=== PATIENT | male | born 1965 | race Caucasian/White ===

== ENCOUNTER 2017-10-16 15:48 | Inpatient (IN) | payer MEDICARE, SELFPAY ==
[2017-10-16] VITALS (11 sets, daily range): BP systolic 147–210; BP diastolic 94–110; PULSE 99–130; RESP 12–23; TEMP 36.6–37.1; O2SAT 94–99; BMI 20.9; BMI 20.4
--- NOTE | 2017-10-16 15:57 | EKG12_ITS ---
Test Reason : SOB Blood Pressure : / mmHG Vent. Rate : 125 BPM Atrial Rate : 125 BPM P-R Int : 100 ms QRS Dur : 070 ms QT Int : 292 ms P-R-T Axes : 074 040 055 degrees QTc Int : 421 ms Sinus tachycardia with short NH Low voltage QRS (limb leads) Confirmed by PAMELA PHAM, GALE ([id number]), book or script editor LAKSHMI GARCIA ([id number] on 10/18/2017 11:47:50 AM Referred By: CHYNA Confirmed By:GALE SANTIAGO MD
--- NOTE | 2017-10-16 15:59 | RAD_ITS ---
STUDY: X-RAY CHEST REASON FOR EXAM: Male, 52 years old. SOB/DYSPNEA; COPD/EMPHYSEMA TECHNIQUE: Single AP portable view of the chest. COMPARISON: 08.18.16. FINDINGS: There is hyperinflation of the lungs consistent with chronic obstructive lung disease (COPD). There is no demonstrated pleural abnormality. Normal size heart. Normal mediastinum and kathleen. Normal visualized pulmonary arteries. Normal visualized aortic arch and descending thoracic aorta. Normal visualized thoracic spine. Healed left rib fracture. There is no demonstrated abnormality of the visualized soft tissue structures of the upper abdomen. RAD/Chest 1 View (Portable) IMPRESSION: Normal x-ray examination of the chest. Healed left rib fracture. Electronically Signed: Otoniel Tapia MD at 16:17 EDT , Service support ,
[2017-10-16] MEDS: Ipratropium/Albuterol Sulfate 3 ML AMPUL.NEB INHALATION ×3 (16:04→23:13)
[2017-10-16] MEDS: Albuterol 2.5 MG/3 ML VIAL.NEB. INHALATION ×3 (16:06→16:10)
[2017-10-16] MEDS: MethylPREDNISolone 125 MG/2 ML Vial IV (16:10)
[2017-10-16] MEDS: 0.9% Normal Saline 1,000 ML 999 ML IV (16:11)
[2017-10-16] MEDS: Ondansetron 4 MG/2 ML Vial IV (16:13)
[2017-10-16] MEDS: Morphine 4 MG/ML Syringe IV (16:13)
[2017-10-16 16:17] LABS: Absolute Lymphocyte Count 0.91 X10^3/ul (0.83-4.51); Absolute Neutrophil Count 8.9 X10^3/uL (2.0-7.7); Basophil# 0.02 X10^3/uL; Basophil% 0.2 % (0-1); Eosinophil# 0.04 X10^3/uL; Eosinophils% 0.4 % (0-5); Hematocrit 38.8 % (40-54); Hemoglobin 12.9 g/dl (13.0-16.5); Lymphocyte # 0.91 X10^3/ul (4.0); Lymphocyte % 8.6 % (19-41); Mean Corp Hgb Conc 33.2 g/gl (32-36); Mean Corpuscular Hgb 30.9 pg (27.0-32.0); Mean Platelet Vol. 8.2 fl (6.2-12.0); Monocyte# 0.63 X10^3/uL; Neutrophil # 8.93 X10^3/uL (2.7-7.7); Neutrophil % 84.6 % (47-70); Platelet Count 293 K/mm3 (150-450); RBC Distribution Width CV 13.7 % (11.6-14.6); RBC Distribution Width SD 46.5 fl (35.1-43.9); Red Blood Count 4.17 M/mm3 (4.6-6.2); White Blood Count 10.6 K/mm3 (4.4-11.0)
[2017-10-16 16:20] LABS: POSITIVE COUNT NO; POSITIVE DIFFERENTIAL NO; POSITIVE MORPHOLOGY NO
[2017-10-16 16:31] LABS: Lactic Acid 1.9 mmol/L (0.4-2.0)
[2017-10-16 16:48] LABS: Anion Gap 6 (5-15); BUN 3 mg/dL (7-18); BUN/Creat Ratio 5.4 RATIO (10-20); Chloride 83 mmol/L (98-107); Creatinine, Serum 0.56 mg/dL (0.70-1.30); EST Glomerular Filtration Rate 162 mL/min (>60); Est Glom Filt Rate - Afr Amer 197 mL/min (>60); Estimated Creatinine Clearance 127.09 ml/min; Glucose 113 mg/dL (74-106); Potassium 4.6 mmol/L (3.5-5.1); Sodium Level 121 mmol/L (136-145)
--- NOTE | 2017-10-16 16:57 | ED.VISSUMM ---
- ER Visit Summary Date of Service: 10/16/17 Chief Complaint: Shortness of breath History of Present Illness: The patient is a [address] Higuera and Dr. Peralta. He has a history of COPD and is on 2 L of home O2. Reports she has shortness of breath began yesterday and is gradually worsened. It is now severe. He reports she has had a cough productive white sputum for the past 2 days. Said subjective fever. He reports that he has a continuous left-sided chest pressure that began 2 days ago. Is 5 out of 10 currently and 8 out of 10 at worst. Patient also reports that he has mild abdominal pain and was nauseated and vomited last night. No blood in his emesis. He does drink 3-4 beers a day. He has had 3 beers today. Complains of generalized weakness as well. Physical Examination: Vitals: 98.8, 210/110, 118, 23, 99% on a nonrebreather. General: Well-developed, but cachectic. Head: Normocephalic atraumatic. Neck: Supple, no lymphadenopathy. No JVD. Nontender. Cardiovascular: Tachycardic regular rhythm. No murmurs. Respiratory: Moderate respiratory distress. Mild wheezing bilaterally with greatly decreased air movement. Abdominal: Soft, nontender, nondistended, normal bowel sounds. No guarding, rebound, or peritoneal signs. Back: Nontender. Extremities: Nontender, no edema. Skin: Normal color, no rash. Neurologic: Alert and oriented ?3. Cranial nerves II through XII are intact. Normal strength and sensation. Psych: Normal affect. Test Results: EKG is sinus tachycardia 125 with a short [place] interval of [address] changes. Troponin is negative. Lactic acid is 1.9. Chem-7 is more for sodium 121, chloride of 83, BUN 3, creatinine 0.56, glucose 113. CBC is more for an H&H of 12.9 38.8, 7 neutrophils 85, and leukocytes of 9. Chest x-ray shows severe emphysematous changes, but no pneumothorax or pneumonia. Emergency Department Course and Treatment: Patient was treated with 4 albuterol and Atrovent aerosol. He was placed on BiPAP. He was given Solu-Medrol, morphine, and Zofran IV. He is resting more comfortably. However, he still has very poor air movement. Treatment Plan: Patient will be admitted to the hospital for further evaluation and treatment. Disposition: Admitted in improved condition. Impression: 1. Acute on chronic respiratory failure on BiPAP. 2. COPD exacerbation. 3. Hyponatremia. 4. Critical care time 30 minutes. This note was generated with [employer] dictation software. It may contain incorrect words, spelling, and punctuation that were not noted in review of the chart prior to signing ED Disposition - Plan for ED Patient: Chief Complaint: Shortness of Breath Referrals: Ketan Peralta MD [Primary Care Provider] -
[2017-10-16 17:01] LABS: Allen Test POS; Base Excess 5 mmol/L (-2 to +2); Bicarbonate 30.6 mmol/L (22-26); Blood Gas Specimen Type ART; EPAP 7; FI02 50; IPAP 14; PO2 180 mmHG (75-100); RR 12; SITE R Radial; SO2 99 % (95-99); Time Given 1658; Total Carbon Dioxide 32 mmol/L; pCO2 57.6 mmHg (35-45); pH 7.33 (7.35-7.45)
--- NOTE | 2017-10-16 17:59 | NURSING ---
107 COPD [facility]
--- NOTE | 2017-10-16 18:07 | NURSING ---
DR ALBERTO WITH PATIENT
--- NOTE | 2017-10-16 18:11 | PCM.HP.STD ---
Problem List (1) Shortness of breath Status: Acute History of Present Illness Date of Admission: 10/16/17 Chief Complaint: Shortness of breath The patient is a 52 year old M with a history of COPD on 2 L of home oxygen, hypertension, hyperlipidemia and alcohol abuse. He was admitted by the ED on 10/16/2017 with a complaint of shortness of breath for 2 days prior to admission. Patient states he had not been using his inhalers for the past few days. Shortness of breath started and worsened over the 2 days prior to admission with associated cough productive of clear sputum. He had a subjective fever but denied any chills and had pleuritic chest pain as well. Also had assisted nausea and vomited once last night. He drinks about 3-4 beers daily and his last drink was today when he drank 3 beers. In the ED vitals showed temperature of 98.8, blood pressure of 210/110, respiratory rate of 118, respiratory rate of 23 he was breathing 99% on a nonrebreather mask. EKG done shows sinus tachycardia with a heart rate of 125 and a shortened ND, troponin was negative and lactic acid was 1.9. BMP was significant for sodium of 121 and CBC showed hemoglobin of 8.7 with white cell count of around 9. Chest x-ray done showed severe emphysematous changes but no pneumothorax or pneumonia. Was given albuterol and Atrovent in the ED and put on BiPAP and also given Solu-Medrol. Patient became more comfortable on BiPAP. He has been admitted to be managed for COPD exacerbation. [] Past Medical History Past Medical History (Chronic Problems): Chronic Problems (Last Reviewed 04/11/17 @ 11:06 by MOE Dixon) Stage 4 very severe COPD by GOLD classification (Chronic) Alcohol abuse (Chronic) Chronic respiratory failure (Chronic) Hyperlipidemia (Chronic) Hypertension (Chronic) COPD (chronic obstructive pulmonary disease) (Chronic) Medical History: Medical History (Last Reviewed 04/11/17 @ 11:06 by MOE Dixon) Acute and chronic respiratory failure with hypercapnia (Acute) J96.22 Alcohol abuse (Chronic) F10.10 Chronic respiratory failure (Chronic) J96.10 Hyperlipidemia (Chronic) E78.5 COPD exacerbation (Acute) J44.1 Hypertension (Chronic) I10 COPD (chronic obstructive pulmonary disease) (Chronic) J44.9 Allergies No Known Allergies Allergy (Verified 10/16/17 15:49) Home Medications: Ambulatory Orders Medication Instructions Recorded Pravastatin Sodium [Pravachol] 20 mg PO QHS 03/23/16 Albuterol Inhaler [Ventolin Hfa] 2 puff INHALATION Q4H PRN PRN #1 03/25/16 inhaler Ipratropium/Albuterol Respimat 1 puff INHALATION 4X/DAY #1 inhaler 03/25/16 [Combivent Respimat Inhal [place]] Lisinopril [Zestril] 20 mg PO DAILY #30 tab 08/23/16 albuterol sulfate 2.5 mg/3 mL 2.5 mg INHALATION Q4H PRN ml 04/05/17 (0.083 %) solution for nebulization budesonide 0.5 mg/2 mL suspension 0.5 mg INHALATION Q12H 04/05/17 for nebulization prednisone 10 mg tablet 10 mg PO QDAY #30 tab 04/11/17 prednisone 10 mg tablet 10 mg PO QDAY #30 tab 05/23/17 prednisone 10 mg tablet 10 mg PO QDAY #30 tab 06/21/17 azithromycin 250 mg tablet 250 mg PO QDAY #6 tab 10/15/17 prednisone 10 mg tablet 10 mg PO QDAY #30 tab 10/15/17 Surgical History: Surgical History (Last Reviewed 04/11/17 @ 11:07 by MOE Dixon) H/O chest tube placement (Resolved) Z98.890 Surgical History: no surgical history Psychiatric History: No pertinent psych hx Lives: Spouse/ Significant Other Smoking Status: Former smoker - *Family History Maternal Family History: Family History (Last Reviewed 04/11/17 @ 11:07 by MOE Dixon) Mother COPD (chronic obstructive pulmonary disease) Aunt COPD (chronic obstructive pulmonary disease) Father Cancer COPD (chronic obstructive pulmonary disease) Pneumonia History Items: Unknown Paternal Family History: Family History (Last Reviewed 04/11/17 @ 11:07 by MOE Dixon) Mother COPD (chronic obstructive pulmonary disease) Aunt COPD (chronic obstructive pulmonary disease) Father Cancer COPD (chronic obstructive pulmonary disease) Pneumonia History Items: No pertinent history Review of Systems Constitutional: Reports: Fever, Malaise. Denies: Chills, Weight Change HEENT: Denies: Head Aches, Sinus Congestion, Sinus Drainage Cardiovascular: Reports: Palpitations, - - Pleuritic chest pain. Denies: Chest Pressure, Chest Tightness, Heaviness, Light Headedness, Orthopnea, Paroxysmal Noc. Dyspnea Respiratory: Reports: Cough, Pleuritic Pain, Shortness of Breath, Shortness of breath at rest, Sputum production - Clear sputum, Wheezing Gastrointestinal: Reports: Nausea, Vomiting. Denies: Abdominal Pain Genitourinary: Denies: Dysuria Musculoskeletal: Denies: Joint Pain, Joint Tenderness Skin: Denies: Rash, Wounds Neurological: Denies: Numbness, Tingling, Focal weakness Psychiatric: Denies: Anxiety, Depression, Homicidal Ideations, Suicidal Ideations Hematologic/ Lymphatic: Denies: Easy Bruising, Easy Bleeding VTE Information - Inpt Only VTE Present on Admission: No VTE Mechan Device Prophylaxis: None VTE Pharm Prophylaxis ordered?: Yes Patient Problems: Active and Suspected Problems (Last Reviewed 04/11/17 @ 11:06 by Elisha Boss INK PRINTER-C) Shortness of breath (Acute) - Physical Exam General: Alert, Oriented x3, Cooperative, - - Patient on BiPAP. Moderate respiratory distress. HEENT: Atraumatic, PERRLA, EOMI, Normocephalic Oral: Moist Mucosa Neck: Supple, No JVD, Negative Carotid Bruits Lungs: Short of Breath, Tachypneic, Using Accessory Muscles, - - Increased anterior posterior diameter. Using accessory muscles of respiration. Has wheezing in all lung roland with breath sounds mildly diminished in all lung roland. Cardiovascular: Regular Rhythm, Normal S1, Normal S2, Tachycardic Abdomen: Bowel Sounds Present, Soft, Non Tender Extremities: No clubbing, No cyanosis, No edema, Capillary Refill Less than 3 Seconds Skin: No rashes, No breakdown Musculoskeletal: No Tenderness to Palpation of Joints or Extremities Lymphatic: No Cervical, Supraclavicular, or Inguinal Adenopathy Neurological: Cranial nerves II-XII grossly intact, Motor Exam 5/5 strength throughout Psych/Mental Status: Normal Affect, Appropriate, Alert and oriented to time, place, person, mood and affect Vital Signs Temp Pulse Resp BP Pulse Ox 98.8 F 109 H 18 147/108 H 96 10/16/17 15:52 10/16/17 17:35 10/16/17 17:35 10/16/17 17:35 10/16/17 17:35 Impressions Chest X-Ray 10/16/17 15:59 IMPRESSION: Normal x-ray examination of the chest. Healed left rib fracture. Electronically Signed: Otoniel Tapia MD at 16:17 EDT , Service support , 10/16/17 15:59 Chest 1 View (Portable) [RAD] Stat Laboratory Results 10/16/17 10/16/17 10/16/17 Range/Units 16:00 16:00 16:00 WBC 10.6 (4.4-11.0) K/mm3 RBC 4.17 L (4.6-6.2) M/mm3 Hgb 12.9 L (13.0-16.5) g/dl Hct 38.8 L (40-54) % MCV 93.0 (80-94) fL MCH 30.9 (27.0-32.0) pg MCHC 33.2 (32-36) g/gl RDW 13.7 (11.6-14.6) % RDW Differential 46.5 H (35.1-43.9) fl Plt Count 293 (150-450) K/mm3 MPV 8.2 (6.2-12.0) fl Immature Gran % (Auto) 0.200 (0.0-0.9) % Neut % (Auto) 84.6 H (47-70) % Lymph % (Auto) 8.6 L (19-41) % Jefferson % (Auto) 6.0 (0-10) % Eos % (Auto) 0.4 (0-5) % Baso % (Auto) 0.2 (0-1) % Absolute Neuts (auto) 8.9 H (2.0-7.7) X10^3/uL Absolute Lymphs (auto) 0.91 (0.83-4.51) X10^3/ul Total Counted Not Reportable Specimen Type Sample Site pH (7.35-7.45) Bicarbonate Actual (22-26) mmol/L POC Total CO2 mmol/L Base Excess (-2 to +2) mmol/L O2 Saturation (95-99) % O2 % ABG pCO2 (35-45) mmHg ABG pO2 (75-100) mmHG Romulo Test Respiration Rate O2 Delivery Device EPAP IPAP Blood Gas Notified Whom Blood Gas Notified Time Sodium 121 L (136-145) mmol/L Potassium 4.6 (3.5-5.1) mmol/L Chloride 83 L (98-107) mmol/L Carbon Dioxide 32.0 (21.0-32.0) mmol/L Anion Gap 6 (5-15) BUN 3 L (7-18) mg/dL Creatinine 0.56 L (0.70-1.30) mg/dL Estim Creat Clear Calc 127.09 ml/min Est GFR (MDRD) Af Amer 197 (>60) mL/min Est GFR (MDRD) Non-Af 162 (>60) mL/min BUN/Creatinine Ratio 5.4 L (10-20) RATIO Glucose 113 H (74-106) mg/dL Lactic Acid 1.9 (0.4-2.0) mmol/L Calcium 9.0 (8.5-10.1) mg/dL Troponin I < 0.015 (<0.045) ng/mL Ethyl Alcohol mg/dL 10/16/17 10/16/17 Range/Units 16:44 16:56 WBC (4.4-11.0) K/mm3 RBC (4.6-6.2) M/mm3 Hgb (13.0-16.5) g/dl Hct (40-54) % MCV (80-94) fL MCH (27.0-32.0) pg MCHC (32-36) g/gl RDW (11.6-14.6) % RDW Differential (35.1-43.9) fl Plt Count (150-450) K/mm3 MPV (6.2-12.0) fl Immature Gran % (Auto) (0.0-0.9) % Neut % (Auto) (47-70) % Lymph % (Auto) (19-41) % Jefferson % (Auto) (0-10) % Eos % (Auto) (0-5) % Baso % (Auto) (0-1) % Absolute Neuts (auto) (2.0-7.7) X10^3/uL Absolute Lymphs (auto) (0.83-4.51) X10^3/ul Total Counted Specimen Type ART Sample Site R Radial pH 7.33 L (7.35-7.45) Bicarbonate Actual 30.6 H (22-26) mmol/L POC Total CO2 32 mmol/L Base Excess 5 H (-2 to +2) mmol/L O2 Saturation 99 (95-99) % O2 % 50 ABG pCO2 57.6 H (35-45) mmHg ABG pO2 180 H (75-100) mmHG Romulo Test POS Respiration Rate 12 O2 Delivery Device Bi / C PAP EPAP 7 IPAP 14 Blood Gas Notified Whom ED Blood Gas Notified Time 1658 Sodium (136-145) mmol/L Potassium (3.5-5.1) mmol/L Chloride (98-107) mmol/L Carbon Dioxide (21.0-32.0) mmol/L Anion Gap (5-15) BUN (7-18) mg/dL Creatinine (0.70-1.30) mg/dL Estim Creat Clear Calc ml/min Est GFR (MDRD) Af Amer (>60) mL/min Est GFR (MDRD) Non-Af (>60) mL/min BUN/Creatinine Ratio (10-20) RATIO Glucose (74-106) mg/dL Lactic Acid (0.4-2.0) mmol/L Calcium (8.5-10.1) mg/dL Troponin I (<0.045) ng/mL Ethyl Alcohol 5.0 mg/dL Assessment/Plan All Active Problems (Last Reviewed 04/11/17 @ 11:06 by Elisha Boss, INK PRINTER-C) Shortness of breath (Acute) H/O chest tube placement (Resolved) Acute and chronic respiratory failure with hypercapnia (Acute) COPD exacerbation (Acute) 1. Acute on chronic hypoxic and hypercapnic respiratory failure due to COPD exacerbation' patient came in acutely SOB. was on nonrebreather mask, but now o n BIPAP and tolerating it well ABG showed Ph of 7.33, pCO2 of 57.6, pO2 of 180 will admit to PCU with telemetry continue BIPAP IV solumedrol 40mg q8. breathing treatments with duoneb inhalers 2. COPD exacerbation due to noncompliance with inhalers has increased A-P diameter imaging showed hyperinflation of lungs consistent with COPD. IV solumedrol as mentioned above BIPAP as mentioned above breathing treatments with duonebs 3. Hypertension urgency The patient was in the 200s systolic on admission but this is likely due to COPD exacerbation. 147/108 at time of review. On lisinopril. Will continue. 4. Hyperlipidemia: on pravastatin. Code Status: Full code. Patient is okay with intubation if needed. This note was generated with [employer] dictation software. It may contain incorrect words, spelling, and punctuation that were not noted in checking the note before signing. Code Visit Inpatient E&M: 94365 Init Hosp L3
--- NOTE | 2017-10-16 18:15 | HP.PCM_ITS ---
Problem List (1) Shortness of breath Status: Acute History of Present Illness Date of Admission: 10/16/17 Chief Complaint: Shortness of breath The patient is a 52 year old M with a history of COPD on 2 L of home oxygen, hypertension, hyperlipidemia and alcohol abuse. He was admitted by the ED on with a complaint of shortness of breath for 2 days prior to admission. Patient states he had not been using his inhalers for the past few days. Shortness of breath started and worsened over the 2 days prior to admission with associated cough productive of clear sputum. He had a subjective fever but denied any chills and had pleuritic chest pain as well. Also had assisted nausea and vomited once last night. He drinks about 3-4 beers daily and his last drink was today when he drank 3 beers. In the ED vitals showed temperature of 98.8, blood pressure of 210/110, respiratory rate of 118, respiratory rate of 23 he was breathing 99% on a nonrebreather mask. EKG done shows sinus tachycardia with a heart rate of 125 and a shortened VT, troponin was negative and lactic acid was 1.9. BMP was significant for sodium of 121 and CBC showed hemoglobin of 8.7 with white cell count of around 9. Chest x- ray done showed severe emphysematous changes but no pneumothorax or pneumonia. Was given albuterol and Atrovent in the ED and put on BiPAP and also given Solu- Medrol. Patient became more comfortable on BiPAP. He has been admitted to be managed for COPD exacerbation. [] Past Medical History Past Medical History (Chronic Problems): Chronic Problems (Last Reviewed 04/11/17 @ 11:06 by MOE Dixon) Stage 4 very severe COPD by GOLD classification (Chronic) Alcohol abuse (Chronic) Chronic respiratory failure (Chronic) Hyperlipidemia (Chronic) Hypertension (Chronic) COPD (chronic obstructive pulmonary disease) (Chronic) Medical History: Medical History (Last Reviewed 04/11/17 @ 11:06 by MOE Dixon) Acute and chronic respiratory failure with hypercapnia (Acute) J96.22 Alcohol abuse (Chronic) F10.10 Chronic respiratory failure (Chronic) J96.10 Hyperlipidemia (Chronic) E78.5 COPD exacerbation (Acute) J44.1 Hypertension (Chronic) I10 COPD (chronic obstructive pulmonary disease) (Chronic) J44.9 Allergies No Known Allergies Allergy (Verified 10/16/17 15:49) Home Medications: Ambulatory Orders Medication Instructions Recorded Pravastatin Sodium [Pravachol] 20 mg PO QHS 03/23/16 Albuterol Inhaler [Ventolin Hfa] 2 puff INHALATION Q4H PRN PRN #1 03/25/16 inhaler Ipratropium/Albuterol Respimat 1 puff INHALATION 4X/DAY #1 inhaler 03/25/16 [Combivent Respimat Inhal [place]] Lisinopril [Zestril] 20 mg PO DAILY #30 tab 08/23/16 albuterol sulfate 2.5 mg/3 mL 2.5 mg INHALATION Q4H PRN ml 04/05/17 (0.083 %) solution for nebulization budesonide 0.5 mg/2 mL suspension 0.5 mg INHALATION Q12H 04/05/17 for nebulization prednisone 10 mg tablet 10 mg PO QDAY #30 tab 04/11/17 prednisone 10 mg tablet 10 mg PO QDAY #30 tab 05/23/17 prednisone 10 mg tablet 10 mg PO QDAY #30 tab 06/21/17 azithromycin 250 mg tablet 250 mg PO QDAY #6 tab 10/15/17 prednisone 10 mg tablet 10 mg PO QDAY #30 tab 10/15/17 Surgical History: Surgical History (Last Reviewed 04/11/17 @ 11:07 by MOE Dixon) H/O chest tube placement (Resolved) Z98.890 Surgical History: no surgical history Psychiatric History: No pertinent psych hx Lives: Spouse/ Significant Other Smoking Status: Former smoker - *Family History Maternal Family History: Family History (Last Reviewed 04/11/17 @ 11:07 by MOE Dixon) Mother COPD (chronic obstructive pulmonary disease) Aunt COPD (chronic obstructive pulmonary disease) Father Cancer COPD (chronic obstructive pulmonary disease) Pneumonia History Items: Unknown Paternal Family History: Family History (Last Reviewed 04/11/17 @ 11:07 by MOE Dixon) Mother COPD (chronic obstructive pulmonary disease) Aunt COPD (chronic obstructive pulmonary disease) Father Cancer COPD (chronic obstructive pulmonary disease) Pneumonia History Items: No pertinent history Review of Systems Constitutional: Reports: Fever, Malaise. Denies: Chills, Weight Change HEENT: Denies: Head Aches, Sinus Congestion, Sinus Drainage Cardiovascular: Reports: Palpitations, - - Pleuritic chest pain. Denies: Chest Pressure, Chest Tightness, Heaviness, Light Headedness, Orthopnea, Paroxysmal Noc. Dyspnea Respiratory: Reports: Cough, Pleuritic Pain, Shortness of Breath, Shortness of breath at rest, Sputum production - Clear sputum, Wheezing Gastrointestinal: Reports: Nausea, Vomiting. Denies: Abdominal Pain Genitourinary: Denies: Dysuria Musculoskeletal: Denies: Joint Pain, Joint Tenderness Skin: Denies: Rash, Wounds Neurological: Denies: Numbness, Tingling, Focal weakness Psychiatric: Denies: Anxiety, Depression, Homicidal Ideations, Suicidal Ideations Hematologic/ Lymphatic: Denies: Easy Bruising, Easy Bleeding VTE Information - Inpt Only VTE Present on Admission: No VTE Mechan Device Prophylaxis: None VTE Pharm Prophylaxis ordered?: Yes Patient Problems: Active and Suspected Problems (Last Reviewed 04/11/17 @ 11:06 by Elisha Boss CHILDREN'S LIBRARIAN-C) Shortness of breath (Acute) - Physical Exam General: Alert, Oriented x3, Cooperative, - - Patient on BiPAP. Moderate respiratory distress. HEENT: Atraumatic, PERRLA, EOMI, Normocephalic Oral: Moist Mucosa Neck: Supple, No JVD, Negative Carotid Bruits Lungs: Short of Breath, Tachypneic, Using Accessory Muscles, - - Increased anterior posterior diameter. Using accessory muscles of respiration. Has wheezing in all lung roland with breath sounds mildly diminished in all lung roland. Cardiovascular: Regular Rhythm, Normal S1, Normal S2, Tachycardic Abdomen: Bowel Sounds Present, Soft, Non Tender Extremities: No clubbing, No cyanosis, No edema, Capillary Refill Less than 3 Seconds Skin: No rashes, No breakdown Musculoskeletal: No Tenderness to Palpation of Joints or Extremities Lymphatic: No Cervical, Supraclavicular, or Inguinal Adenopathy Neurological: Cranial nerves II-XII grossly intact, Motor Exam 5/5 strength throughout Psych/Mental Status: Normal Affect, Appropriate, Alert and oriented to time, place, person, mood and affect Vital Signs Temp Pulse Resp BP Pulse Ox 98.8 F 109 H 18 147/108 H 96 10/16/17 15:52 10/16/17 17:35 10/16/17 17:35 10/16/17 17:35 10/16/17 17:35 Impressions Chest X-Ray 10/16/17 15:59 IMPRESSION: Normal x-ray examination of the chest. Healed left rib fracture. Electronically Signed: Otoniel Tapia MD at 16:17 EDT , Service support , 10/16/17 15:59 Chest 1 View (Portable) [RAD] Stat Laboratory Results 10/16/17 10/16/17 10/16/17 Range/Units 16:00 16:00 16:00 WBC 10.6 (4.4-11.0) K/mm3 RBC 4.17 L (4.6-6.2) M/mm3 Hgb 12.9 L (13.0-16.5) g/dl Hct 38.8 L (40-54) % MCV 93.0 (80-94) fL MCH 30.9 (27.0-32.0) pg MCHC 33.2 (32-36) g/gl RDW 13.7 (11.6-14.6) % RDW Differential 46.5 H (35.1-43.9) fl Plt Count 293 (150-450) K/mm3 MPV 8.2 (6.2-12.0) fl Immature Gran % (Auto) 0.200 (0.0-0.9) % Neut % (Auto) 84.6 H (47-70) % Lymph % (Auto) 8.6 L (19-41) % [place] % (Auto) 6.0 (0-10) % Eos % (Auto) 0.4 (0-5) % Baso % (Auto) 0.2 (0-1) % Absolute Neuts (auto) 8.9 H (2.0-7.7) X10^3/uL Absolute Lymphs (auto) 0.91 (0.83-4.51) X10^3/ul Total Counted Not Reportable Specimen Type Sample Site pH (7.35-7.45) Bicarbonate Actual (22-26) mmol/L POC Total CO2 mmol/L Base Excess (-2 to +2) mmol/L O2 Saturation (95-99) % O2 % ABG pCO2 (35-45) mmHg ABG pO2 (75-100) mmHG Romulo Test Respiration Rate O2 Delivery Device EPAP IPAP Blood Gas Notified Whom Blood Gas Notified Time Sodium 121 L (136-145) mmol/L Potassium 4.6 (3.5-5.1) mmol/L Chloride 83 L (98-107) mmol/L Carbon Dioxide 32.0 (21.0-32.0) mmol/L Anion Gap 6 (5-15) BUN 3 L (7-18) mg/dL Creatinine 0.56 L (0.70-1.30) mg/dL Estim Creat Clear Calc 127.09 ml/min Est GFR (MDRD) Af Amer 197 (>60) mL/min Est GFR (MDRD) Non-Af 162 (>60) mL/min BUN/Creatinine Ratio 5.4 L (10-20) RATIO Glucose 113 H (74-106) mg/dL Lactic Acid 1.9 (0.4-2.0) mmol/L Calcium 9.0 (8.5-10.1) mg/dL Troponin I < 0.015 (<0.045) ng/mL Ethyl Alcohol mg/dL 10/16/17 10/16/17 Range/Units 16:44 16:56 WBC (4.4-11.0) K/mm3 RBC (4.6-6.2) M/mm3 Hgb (13.0-16.5) g/dl Hct (40-54) % MCV (80-94) fL MCH (27.0-32.0) pg MCHC (32-36) g/gl RDW (11.6-14.6) % RDW Differential (35.1-43.9) fl Plt Count (150-450) K/mm3 MPV (6.2-12.0) fl Immature Gran % (Auto) (0.0-0.9) % Neut % (Auto) (47-70) % Lymph % (Auto) (19-41) % [place] % (Auto) (0-10) % Eos % (Auto) (0-5) % Baso % (Auto) (0-1) % Absolute Neuts (auto) (2.0-7.7) X10^3/uL Absolute Lymphs (auto) (0.83-4.51) X10^3/ul Total Counted Specimen Type ART Sample Site R Radial pH 7.33 L (7.35-7.45) Bicarbonate Actual 30.6 H (22-26) mmol/L POC Total CO2 32 mmol/L Base Excess 5 H (-2 to +2) mmol/L O2 Saturation 99 (95-99) % O2 % 50 ABG pCO2 57.6 H (35-45) mmHg ABG pO2 180 H (75-100) mmHG Romulo Test POS Respiration Rate 12 O2 Delivery Device Bi / C PAP EPAP 7 IPAP 14 Blood Gas Notified Whom ED Blood Gas Notified Time 1658 Sodium (136-145) mmol/L Potassium (3.5-5.1) mmol/L Chloride (98-107) mmol/L Carbon Dioxide (21.0-32.0) mmol/L Anion Gap (5-15) BUN (7-18) mg/dL Creatinine (0.70-1.30) mg/dL Estim Creat Clear Calc ml/min Est GFR (MDRD) Af Amer (>60) mL/min Est GFR (MDRD) Non-Af (>60) mL/min BUN/Creatinine Ratio (10-20) RATIO Glucose (74-106) mg/dL Lactic Acid (0.4-2.0) mmol/L Calcium (8.5-10.1) mg/dL Troponin I (<0.045) ng/mL Ethyl Alcohol 5.0 mg/dL Assessment/Plan All Active Problems (Last Reviewed 04/11/17 @ 11:06 by Elisha Boss, CHILDREN'S LIBRARIAN-C) Shortness of breath (Acute) H/O chest tube placement (Resolved) Acute and chronic respiratory failure with hypercapnia (Acute) COPD exacerbation (Acute) 1. Acute on chronic hypoxic and hypercapnic respiratory failure due to COPD exacerbation' * patient came in acutely SOB. was on nonrebreather mask, but now o n BIPAP and tolerating it well * ABG showed Ph of 7.33, pCO2 of 57.6, pO2 of 180 * will admit to PCU with telemetry * continue BIPAP * IV solumedrol 40mg q8. * breathing treatments with duoneb inhalers * 2. COPD exacerbation due to noncompliance with inhalers * has increased A-P diameter * imaging showed hyperinflation of lungs consistent with COPD. * IV solumedrol as mentioned above * BIPAP as mentioned above * breathing treatments with duonebs * 3. Hypertension urgency * The patient was in the 200s systolic on admission but this is likely due to COPD exacerbation. * 147/108 at time of review. * On lisinopril. Will continue. * 4. Hyperlipidemia: on pravastatin. Code Status: Full code. Patient is okay with intubation if needed. This note was generated with [employer] dictation software. It may contain incorrect words, spelling, and punctuation that were not noted in checking the note before signing. Code Visit Inpatient E&M: 32699 Init Hosp L3
[2017-10-16 19:47] LABS: Magnesium 1.8 mg/dL (1.6-2.6); Phosphorus 2.6 mg/dL (2.5-4.9)
[2017-10-16] MEDS: Acetaminophen 325 MG Tablet 650 MG PO (22:18)
[2017-10-16] MEDS: Pravastatin 20 MG Tablet PO (22:18)
[2017-10-17] VITALS (25 sets, daily range): BP systolic 142–160; BP diastolic 79–95; PULSE 83–149; RESP 12–26; TEMP 36.5–37.3; O2SAT 94–97
[2017-10-17] MEDS: Ipratropium/Albuterol Sulfate 3 ML AMPUL.NEB INHALATION ×3 (02:35→19:39)
[2017-10-17] MEDS: Albuterol 2.5 MG/3 ML VIAL.NEB. INHALATION ×3 (04:48→22:02)
[2017-10-17] MEDS: 0.9% NaCl Peripheral Flush Adult/Peds IV (05:08)
[2017-10-17 06:05] LABS: Anion Gap 11 (5-15); BUN 7 mg/dL (7-18); BUN/Creat Ratio 11.3 RATIO (10-20); Calcium,Total 8.6 mg/dL (8.5-10.1); Chloride 86 mmol/L (98-107); Creatinine, Serum 0.62 mg/dL (0.70-1.30); EST Glomerular Filtration Rate 145 mL/min (>60); Est Glom Filt Rate - Afr Amer 175 mL/min (>60); Estimated Creatinine Clearance 111.67 ml/min; Glucose 138 mg/dL (74-106); Potassium 4.7 mmol/L (3.5-5.1); Sodium Level 127 mmol/L (136-145)
[2017-10-17 06:17] LABS: Absolute Lymphocyte Count 0.29 X10^3/ul (0.83-4.51); Absolute Neutrophil Count 4.1 X10^3/uL (2.0-7.7); Hematocrit 35.4 % (40-54); Hemoglobin 11.9 g/dl (13.0-16.5); Lymphocyte # 0.29 X10^3/ul (4.0); Lymphocyte % 6.6 % (19-41); Mean Corp Hgb Conc 33.6 g/gl (32-36); Mean Corpuscular Hgb 31.2 pg (27.0-32.0); Mean Corpuscular Volume 92.9 fL (80-94); Mean Platelet Vol. 8.4 fl (6.2-12.0); Monocyte# 0.03 X10^3/uL; Monocyte% 0.7 % (0-10); Neutrophil # 4.07 X10^3/uL (2.7-7.7); Neutrophil % 92.5 % (47-70); Platelet Count 291 K/mm3 (150-450); RBC Distribution Width CV 13.2 % (11.6-14.6); RBC Distribution Width SD 43.5 fl (35.1-43.9); Red Blood Count 3.81 M/mm3 (4.6-6.2); White Blood Count 4.4 K/mm3 (4.4-11.0)
[2017-10-17 06:18] LABS: Differential Indicated SCAN CRITERIA MET; POSITIVE COUNT NO; POSITIVE DIFFERENTIAL YES; POSITIVE MORPHOLOGY NO
[2017-10-17] MEDS: Enoxaparin 40 MG/0.4 ML Syringe SC (08:36)
[2017-10-17] MEDS: Lisinopril 20 MG Tablet PO (08:36)
--- NOTE | 2017-10-17 11:52 | PCM.PN.HOSP ---
Patient Problems: Active and Suspected Problems (Last Reviewed 04/11/17 @ 11:06 by MOE Dixon) Shortness of breath (Acute) Subjective: Patient seen and examined. He was admitted for complaint of shortness of breath and managed for COPD exacerbation. He was started on IV Solu-Medrol, breathing treatments and put on BiPAP. Patient has no complaints today. He was still on BiPAP but he said he felt very well and shortness of breath had resolved. He denied any cough but admitted to mild wheezing. He denied any chest pain, abdominal pain, diarrhea vomiting. Review of systems otherwise negative. Vitals/I&O's: Vital Signs Temp Pulse Resp BP Pulse Ox 98.4 F 101 H 19 H 149/79 H 97 10/17/17 10:15 10/17/17 10:30 10/17/17 10:30 10/17/17 10:15 10/17/17 11:06 Oxygen Flow Rate (L/min) 4 Oxygen Delivery Method Nasal Cannula Weight: 126 lb 5.198 oz Body Mass Index (BMI) 20.4 Intake and Output for Last 24 Hours 10/15/17 10/16/17 10/17/17 23:59 23:59 23:59 Output Total 250 / 250 300 / 300 Balance -250 / -250 -300 / -300 General: Alert, Oriented x3, Cooperative, No apparent distress HEENT: Atraumatic, PERRLA, EOMI, Normocephalic Oral: Moist Mucosa Neck: Supple, No JVD, Negative Carotid Bruits Lungs: - - Increased AP diameter of chest. Has mild wheezing in all lung roland bilaterally. No accessory muscle use. Still on BiPAP. Cardiovascular: Regular rate, Regular Rhythm, Normal S1, Normal S2, No murmurs Abdomen: Bowel Sounds Present, Soft, Non Tender, Non-Distended, No Hepato-splenomegaly Extremities: No clubbing, No cyanosis, No edema, Capillary Refill Less than 3 Seconds Skin: No rashes, No breakdown Musculoskeletal: No Tenderness to Palpation of Joints or Extremities Lymphatic: No Cervical, Supraclavicular, or Inguinal Adenopathy Neurological: Cranial nerves II-XII grossly intact, Motor Exam 5/5 strength throughout Psych/Mental Status: Normal Affect, Appropriate, Alert and oriented to time, place, person, mood and affect Laboratory Results 10/17/17 05:20: WBC 4.4, RBC 3.81 L, Hgb 11.9 L, Hct 35.4 L, MCV 92.9, MCH 31.2, MCHC 33.6, RDW 13.2, RDW Differential 43.5, Plt Count 291, MPV 8.4, Immature Gran % (Auto) 0.200, Neut % (Auto) 92.5 H, Lymph % (Auto) 6.6 L, [place] % (Auto) 0.7, Eos % (Auto) 0.0, Baso % (Auto) 0.0, Absolute Neuts (auto) 4.1, Absolute Lymphs (auto) 0.29 L, Total Counted Not Reportable 10/17/17 05:20: Sodium 127 L, Potassium 4.7, Chloride 86 L, Carbon Dioxide 30.0, Anion Gap 11, BUN 7, Creatinine 0.62 L, Estim Creat Clear Calc 111.67, Est GFR (MDRD) Af Amer 175, Est GFR (MDRD) Non-Af 145, BUN/Creatinine Ratio 11.3, Glucose 138 H, Calcium 8.6 Diagnostic Data Chest X-Ray 10/16/17 15:59 IMPRESSION: Normal x-ray examination of the chest. Healed left rib fracture. Electronically Signed: Otoniel Tapia MD at 16:17 EDT , Service support , Current Medications Acetaminophen (Tylenol) 650 mg PO Q6H PRN PRN PRN Reason: Non-cardiac pain (mod-severe) Last Admin: 10/16/17 22:18 Dose: 650 mg Albuterol Sulfate (Ventolin Aerosols) 2.5 mg INHALATION Q4H PRN PRN Reason: shortness of breath or wheezin Last Admin: 10/17/17 04:48 Dose: 2.5 mg Albuterol/Ipratropium (Duoneb) 3 ml INHALATION Q4H.RT ROSA Last Admin: 10/17/17 10:15 Dose: 3 ml Enoxaparin Sodium (Lovenox) 40 mg SC DAILY@1000 ROSA Last Admin: 10/17/17 08:36 Dose: 40 mg Sodium Chloride () 250 mls @ 15 mls/hr IV .[id number] PRN PRN Reason: SALINE FLUSH Lisinopril (Zestril) 20 mg PO DAILY [facility] Last Admin: 10/17/17 08:36 Dose: 20 mg Magnesium Hydroxide (Milk Of Magnesia) 30 ml PO DAILY PRN PRN PRN Reason: Constipation Methylprednisolone (Solu-Medrol) 40 mg IV Q8 [facility] Last Admin: 10/17/17 05:08 Dose: 40 mg Nutritional Formula (Lactose Free) (Ensure Enlive) 120 ml PO 4X/DAY [facility] Last Admin: 10/17/17 08:36 Dose: 120 ml Pravastatin Sodium (Pravachol) 20 mg PO QHS [facility] Last Admin: 10/16/17 22:18 Dose: 20 mg Sodium Chloride () 5 - 30 ml IV UD PRN PRN Reason: SALINE FLUSH Last Admin: 10/17/17 05:08 Dose: 10 ml Medical Necessity - Tobacco Use Smoking Status: Former smoker Assessment/Plan All Active Problems (Last Reviewed 04/11/17 @ 11:06 by Elisha Boss, SPORTS MEDICINE MASSEUR-C) Shortness of breath (Acute) H/O chest tube placement (Resolved) Acute and chronic respiratory failure with hypercapnia (Acute) COPD exacerbation (Acute) 1. Acute on chronic hypoxic and hypercapnic respiratory failure due to COPD exacerbation' resolving. SOB is much better still on BIPAP. WIll transition to stand by nasal cannula, aiming for 2 L of oxygen which is patient's baseline. Continue IV Solu-Medrol 40 mg every 8 and breathing treatments with DuoNeb 2. COPD exacerbation due to noncompliance with inhalers improving. imaging showed hyperinflation of lungs consistent with COPD. IV solumedrol as mentioned above BIPAP as mentioned above; transition to oxygen by nasal canula breathing treatments with duonebs 3. Hypertension Fairly controlled. Blood pressure in the 150s-160s. on lisinopril. Will continue 4. Hyponatremia This is chronic. Sodium on admission was 121. Is 127 today. May be due to chronic alcohol abuse; in light of smoking history, will check serum osmolality. 5. Hyperlipidemia: on pravastatin. Code Status: Full code. This note was generated with mohch[employer] software. It may contain incorrect words, spelling, and punctuation that were not noted in checking the note before signing. Code Visit Inpatient E&M: 83574 Subs Hosp L3
--- NOTE | 2017-10-17 11:56 | PN_ITS ---
Patient Problems: Active and Suspected Problems (Last Reviewed 04/11/17 @ 11:06 by MOE Dixon) Shortness of breath (Acute) Subjective: Patient seen and examined. He was admitted for complaint of shortness of breath and managed for COPD exacerbation. He was started on IV Solu-Medrol, breathing treatments and put on BiPAP. Patient has no complaints today. He was still on BiPAP but he said he felt very well and shortness of breath had resolved. He denied any cough but admitted to mild wheezing. He denied any chest pain, abdominal pain, diarrhea vomiting. Review of systems otherwise negative. Vitals/I&O's: Vital Signs Temp Pulse Resp BP Pulse Ox 98.4 F 101 H 19 H 149/79 H 97 10/17/17 10:15 10/17/17 10:30 10/17/17 10:30 10/17/17 10:15 10/17/17 11:06 Oxygen Flow Rate (L/min) 4 Oxygen Delivery Method Nasal Cannula Weight: 126 lb 5.198 oz Body Mass Index (BMI) 20.4 Intake and Output for Last 24 Hours 10/15/17 10/16/17 10/17/17 23:59 23:59 23:59 Output Total 250 / 250 300 / 300 Balance -250 / -250 -300 / -300 General: Alert, Oriented x3, Cooperative, No apparent distress HEENT: Atraumatic, PERRLA, EOMI, Normocephalic Oral: Moist Mucosa Neck: Supple, No JVD, Negative Carotid Bruits Lungs: - - Increased AP diameter of chest. Has mild wheezing in all lung roland bilaterally. No accessory muscle use. Still on BiPAP. Cardiovascular: Regular rate, Regular Rhythm, Normal S1, Normal S2, No murmurs Abdomen: Bowel Sounds Present, Soft, Non Tender, Non-Distended, No Hepato- splenomegaly Extremities: No clubbing, No cyanosis, No edema, Capillary Refill Less than 3 Seconds Skin: No rashes, No breakdown Musculoskeletal: No Tenderness to Palpation of Joints or Extremities Lymphatic: No Cervical, Supraclavicular, or Inguinal Adenopathy Neurological: Cranial nerves II-XII grossly intact, Motor Exam 5/5 strength throughout Psych/Mental Status: Normal Affect, Appropriate, Alert and oriented to time, place, person, mood and affect Laboratory Results 10/17/17 05:20: WBC 4.4, RBC 3.81 L, Hgb 11.9 L, Hct 35.4 L, MCV 92.9, MCH 31.2 , MCHC 33.6, RDW 13.2, RDW Differential 43.5, Plt Count 291, MPV 8.4, Immature Gran % (Auto) 0.200, Neut % (Auto) 92.5 H, Lymph % (Auto) 6.6 L, [place] % (Auto) 0.7, Eos % (Auto) 0.0, Baso % (Auto) 0.0, Absolute Neuts (auto) 4.1, Absolute Lymphs (auto) 0.29 L, Total Counted Not Reportable 10/17/17 05:20: Sodium 127 L, Potassium 4.7, Chloride 86 L, Carbon Dioxide 30.0 , Anion Gap 11, BUN 7, Creatinine 0.62 L, Estim Creat Clear Calc 111.67, Est GFR (MDRD) Af Amer 175, Est GFR (MDRD) Non-Af 145, BUN/Creatinine Ratio 11.3, Glucose 138 H, Calcium 8.6 Diagnostic Data Chest X-Ray 10/16/17 15:59 IMPRESSION: Normal x-ray examination of the chest. Healed left rib fracture. Electronically Signed: Otoniel Tapia MD at 16:17 EDT , Service support , Current Medications Acetaminophen (Tylenol) 650 mg PO Q6H PRN PRN PRN Reason: Non-cardiac pain (mod-severe) Last Admin: 10/16/17 22:18 Dose: 650 mg Albuterol Sulfate (Ventolin Aerosols) 2.5 mg INHALATION Q4H PRN PRN Reason: shortness of breath or wheezin Last Admin: 10/17/17 04:48 Dose: 2.5 mg Albuterol/Ipratropium (Duoneb) 3 ml INHALATION Q4H.RT ROSA Last Admin: 10/17/17 10:15 Dose: 3 ml Enoxaparin Sodium (Lovenox) 40 mg SC DAILY@1000 ROSA Last Admin: 10/17/17 08:36 Dose: 40 mg Sodium Chloride () 250 mls @ 15 mls/hr IV .[id number] PRN PRN Reason: SALINE FLUSH Lisinopril (Zestril) 20 mg PO DAILY [facility] Last Admin: 10/17/17 08:36 Dose: 20 mg Magnesium Hydroxide (Milk Of Magnesia) 30 ml PO DAILY PRN PRN PRN Reason: Constipation Methylprednisolone (Solu-Medrol) 40 mg IV Q8 [facility] Last Admin: 10/17/17 05:08 Dose: 40 mg Nutritional Formula (Lactose Free) (Ensure Enlive) 120 ml PO 4X/DAY [facility] Last Admin: 10/17/17 08:36 Dose: 120 ml Pravastatin Sodium (Pravachol) 20 mg PO QHS [facility] Last Admin: 10/16/17 22:18 Dose: 20 mg Sodium Chloride () 5 - 30 ml IV UD PRN PRN Reason: SALINE FLUSH Last Admin: 10/17/17 05:08 Dose: 10 ml Medical Necessity - Tobacco Use Smoking Status: Former smoker Assessment/Plan All Active Problems (Last Reviewed 04/11/17 @ 11:06 by Elisha Boss, LUIS-C) Shortness of breath (Acute) H/O chest tube placement (Resolved) Acute and chronic respiratory failure with hypercapnia (Acute) COPD exacerbation (Acute) 1. Acute on chronic hypoxic and hypercapnic respiratory failure due to COPD exacerbation' * resolving. SOB is much better * still on BIPAP. WIll transition to stand by nasal cannula, aiming for 2 L of oxygen which is patient's baseline. * Continue IV Solu-Medrol 40 mg every 8 and breathing treatments with DuoNeb * 2. COPD exacerbation due to noncompliance with inhalers * improving. * imaging showed hyperinflation of lungs consistent with COPD. * IV solumedrol as mentioned above * BIPAP as mentioned above; transition to oxygen by nasal canula * breathing treatments with duonebs * 3. Hypertension * Fairly controlled. Blood pressure in the 150s-160s. * on lisinopril. Will continue * 4. Hyponatremia * This is chronic. Sodium on admission was 121. Is 127 today. * May be due to chronic alcohol abuse; in light of smoking history, will check serum osmolality. * 5. Hyperlipidemia: on pravastatin. Code Status: Full code. This note was generated with [employer] software. It may contain incorrect words, spelling, and punctuation that were not noted in checking the note before signing. Code Visit Inpatient E&M: 94818 Subs Hosp L3
--- NOTE | 2017-10-17 11:57 | CASEMGMT ---
Face to Face with patient for initial transition planning/care coordination assessment. RN JUANY introduced self and role at [facility], pt voices understanding and consents to assessment at this time. Pt is sitting up in bed in no distress at this time. Pt does request breathing treatment and Kandis RN notified at this time. Pt is A/O x4 at this time and answers all questions appropriately at this time. Care providers, pharmacy, and demographics verified. See attached link. Pt voices no further concerns/needs at this time. Advised pt to ask for CM if any further questions/concerns/needs arise, voices understanding. CM to follow for any further discharge planning/needs. PLAN: [place]
[2017-10-17 14:41] LABS: Osmolality, Serum 267 mOsm/KG (275-295)
[2017-10-17] MEDS: Ondansetron 4 MG/2 ML Vial IV (17:25)
[2017-10-17] MEDS: Folic Acid 1 MG Tablet PO (17:27)
[2017-10-17] MEDS: Thiamine Hydrochloride 100 MG Tablet PO (17:27)
[2017-10-17] MEDS: Pravastatin 20 MG Tablet PO (21:08)
[2017-10-18] VITALS (20 sets, daily range): BP systolic 130–154; BP diastolic 76–88; PULSE 65–139; RESP 12–30; TEMP 36.6–37.4; O2SAT 94–96
[2017-10-18] MEDS: Ipratropium/Albuterol Sulfate 3 ML AMPUL.NEB INHALATION ×6 (01:04→22:45)
[2017-10-18] MEDS: Albuterol 2.5 MG/3 ML VIAL.NEB. INHALATION (07:22)
[2017-10-18 08:27] LABS: Absolute Lymphocyte Count 0.32 X10^3/ul (0.83-4.51); Absolute Neutrophil Count 11.5 X10^3/uL (2.0-7.7); Hematocrit 34.8 % (40-54); Hemoglobin 11.7 g/dl (13.0-16.5); Lymphocyte # 0.32 X10^3/ul (4.0); Lymphocyte % 2.6 % (19-41); Mean Corp Hgb Conc 33.6 g/gl (32-36); Mean Corpuscular Hgb 31.7 pg (27.0-32.0); Mean Corpuscular Volume 94.3 fL (80-94); Mean Platelet Vol. 8.6 fl (6.2-12.0); Monocyte# 0.33 X10^3/uL; Monocyte% 2.7 % (0-10); Neutrophil # 11.46 X10^3/uL (2.7-7.7); Neutrophil % 94.5 % (47-70); Platelet Count 286 K/mm3 (150-450); RBC Distribution Width CV 13.4 % (11.6-14.6); RBC Distribution Width SD 44.5 fl (35.1-43.9); Red Blood Count 3.69 M/mm3 (4.6-6.2); White Blood Count 12.1 K/mm3 (4.4-11.0)
[2017-10-18 08:31] LABS: Anion Gap 10 (5-15); BUN 14 mg/dL (7-18); BUN/Creat Ratio 23.7 RATIO (10-20); Calcium,Total 8.7 mg/dL (8.5-10.1); Chloride 89 mmol/L (98-107); Creatinine, Serum 0.59 mg/dL (0.70-1.30); EST Glomerular Filtration Rate 152 mL/min (>60); Est Glom Filt Rate - Afr Amer 184 mL/min (>60); Estimated Creatinine Clearance 117.35 ml/min; Glucose 123 mg/dL (74-106); Potassium 4.7 mmol/L (3.5-5.1); Sodium Level 130 mmol/L (136-145)
[2017-10-18 08:33] LABS: Differential Indicated SCAN CRITERIA MET; POSITIVE COUNT NO; POSITIVE DIFFERENTIAL YES; POSITIVE MORPHOLOGY NO
[2017-10-18] MEDS: LORazepam 1 MG Tablet 2 MG PO (09:20)
[2017-10-18] MEDS: Folic Acid 1 MG Tablet PO (09:22)
[2017-10-18] MEDS: Multivitamins,Ther W-Minerals Tablet 1 TABLET PO (09:22)
[2017-10-18] MEDS: Lisinopril 20 MG Tablet PO (09:22)
[2017-10-18] MEDS: Enoxaparin 40 MG/0.4 ML Syringe SC (09:22)
[2017-10-18] MEDS: Thiamine Hydrochloride 100 MG Tablet PO ×2 (09:23→18:40)
--- NOTE | 2017-10-18 10:59 | EKG12_ITS ---
Test Reason : TACHYCARDIA Blood Pressure : / mmHG Vent. Rate : 121 BPM Atrial Rate : 121 BPM P-R Int : 094 ms QRS Dur : 076 ms QT Int : 282 ms P-R-T Axes : 090 043 034 degrees QTc Int : 400 ms Sinus tachycardia with short [place] Low voltage QRS (LIMB LEADS) Confirmed by PAMELA PHAM, GALE ([id number]), makeup editor LAKSHMI GARCIA ([id number]) on 10/22/2017 3:47:14 PM Referred By: DOLLY Confirmed By:GALE SANTIAGO MD
[2017-10-18] MEDS: LORazepam 2 MG/ML Syringe IV ×3 (11:08→20:58)
--- NOTE | 2017-10-18 11:24 | PCM.PN.HOSP ---
Patient Problems: Active and Suspected Problems (Last Reviewed 04/11/17 @ 11:06 by MOE Dixon) Shortness of breath (Acute) Subjective: Patient seen an examined. He was on BIPAP and was comfortable. He felt comfortable with the BIPAP off and had been on it overnight. Patient was noted to have tremors of his extremities. He denied craving a drink right now. Denied any cough or chest pain, abdominal pain, any diarrhea vomiting. Tremors were noted to be very pronounced. Patient denied any history of delirium tremens. Vitals/I&O's: Vital Signs Temp Pulse Resp BP Pulse Ox 99.0 F 119 H 18 154/88 H 94 10/18/17 09:04 10/18/17 10:34 10/18/17 10:34 10/18/17 09:04 10/18/17 09:04 Oxygen Flow Rate (L/min) 3 Oxygen Delivery Method Nasal Cannula Weight: 126 lb 5.198 oz Body Mass Index (BMI) 20.4 Intake and Output for Last 24 Hours 10/16/17 10/17/17 10/18/17 23:59 23:59 23:59 Intake Total 360 / 360 Output Total 250 / 250 1125 / 1125 550 / 550 Balance -250 / -250 -765 / -765 -550 / -550 General: Alert, Oriented x3, Cooperative, No apparent distress HEENT: Atraumatic, PERRLA, EOMI, Normocephalic Oral: Moist Mucosa Neck: Supple, No JVD, Negative Carotid Bruits Lungs: Clear to auscultation, Normal air movement, No rhonchi, No wheeze, No rales Cardiovascular: Regular rate, Normal S1, Normal S2, Tachycardic Abdomen: Bowel Sounds Present, Soft, Non Tender, Non-Distended, No Hepato-splenomegaly Extremities: No clubbing, No cyanosis, No edema, Capillary Refill Less than 3 Seconds Skin: No rashes, No breakdown Musculoskeletal: No Tenderness to Palpation of Joints or Extremities Lymphatic: No Cervical, Supraclavicular, or Inguinal Adenopathy Neurological: Cranial nerves II-XII grossly intact, - - tremors of his upper extremities Psych/Mental Status: Normal Affect, Appropriate, Alert and oriented to time, place, person, mood and affect Laboratory Results 10/17/17 14:02: Serum Osmolality 267 L 10/18/17 07:40: WBC 12.1 H, RBC 3.69 L, Hgb 11.7 L, Hct 34.8 L, MCV 94.3 H, MCH 31.7, MCHC 33.6, RDW 13.4, RDW Differential 44.5 H, Plt Count 286, MPV 8.6, Immature Gran % (Auto) 0.200, Neut % (Auto) 94.5 H, Lymph % (Auto) 2.6 L, [place] % (Auto) 2.7, Eos % (Auto) 0.0, Baso % (Auto) 0.0, Absolute Neuts (auto) 11.5 H, Absolute Lymphs (auto) 0.32 L, Total Counted Not Reportable, Differential Comment COMMENT 10/18/17 07:40: Sodium 130 L, Potassium 4.7, Chloride 89 L, Carbon Dioxide 31.0, Anion Gap 10, BUN 14, Creatinine 0.59 L, Estim Creat Clear Calc 117.35, Est GFR (MDRD) Af Amer 184, Est GFR (MDRD) Non-Af 152, BUN/Creatinine Ratio 23.7 H, Glucose 123 H, Calcium 8.7 Diagnostic Data Chest X-Ray 10/16/17 15:59 IMPRESSION: Normal x-ray examination of the chest. Healed left rib fracture. Electronically Signed: Otoniel Tapia MD at 16:17 EDT , Service support , Current Medications Acetaminophen (Tylenol) 650 mg PO Q6H PRN PRN PRN Reason: Non-cardiac pain (mod-severe) Last Admin: 10/16/17 22:18 Dose: 650 mg Albuterol Sulfate (Ventolin Aerosols) 2.5 mg INHALATION Q2H PRN PRN PRN Reason: SOB &/OR WHEEZING Last Admin: 10/18/17 07:22 Dose: 2.5 mg Albuterol/Ipratropium (Duoneb) 3 ml INHALATION Q4H.RT [facility] Last Admin: 10/18/17 10:34 Dose: 3 ml Diazepam (Valium) 5 mg PO Q24H PRN PRN Reason: Agitation Enoxaparin Sodium (Lovenox) 40 mg SC DAILY@1000 [facility] Last Admin: 10/18/17 09:22 Dose: 40 mg Folic Acid (Folic Acid) 1 mg PO DAILY@0800 [facility] Stop: 10/19/17 08:01 Last Admin: 10/18/17 09:22 Dose: 1 mg Sodium Chloride () 250 mls @ 15 mls/hr IV .[id number] PRN PRN Reason: SALINE FLUSH Lisinopril (Zestril) 20 mg PO DAILY [facility] Last Admin: 10/18/17 09:22 Dose: 20 mg Lorazepam (Ativan) 2 mg PO Q2H PRN PRN; Protocol PRN Reason: CIWA score > 8 but <15 Last Admin: 10/18/17 09:20 Dose: 2 mg Lorazepam (Ativan) 2 mg PO UD PRN; Protocol PRN Reason: CIWA score >/=15. Lorazepam (Ativan) 2 mg IV Q2H PRN PRN; Protocol PRN Reason: CIWA score > 8 but <15 Last Admin: 10/18/17 11:08 Dose: 1 mg Lorazepam (Ativan) 2 mg IV UD PRN; Protocol PRN Reason: CIWA score >/=15. Magnesium Hydroxide (Milk Of Magnesia) 30 ml PO DAILY PRN PRN PRN Reason: Constipation Methylprednisolone (Solu-Medrol) 40 mg IV Q8 [facility] Last Admin: 10/18/17 05:18 Dose: 40 mg Multivitamins/Minerals ([facility]itamin [facility]) [facility] Admin: 10/18/17 09:22 Dose: 1 tablet Nutritional Formula (Lactose Free) (Ensure Enlive) 120 ml PO 4X/DAY [facility] Last Admin: 10/18/17 09:21 Dose: 120 ml Ondansetron HCl (Zofran) 4 mg IV Q4H PRN PRN PRN Reason: NAUSEA Last Admin: 10/17/17 17:25 Dose: 4 mg Pravastatin Sodium (Pravachol) 20 mg PO QHS [facility] Last Admin: 10/17/17 21:08 Dose: 20 mg Sodium Chloride () 5 - 30 ml IV UD PRN PRN Reason: SALINE FLUSH Last Admin: 10/17/17 05:08 Dose: 10 ml Thiamine HCl (Vitamin B1) [facility] Stop: 10/20/17 08:01 Last Admin: 10/18/17 09:23 Dose: 100 mg Medical Necessity - Tobacco Use Smoking Status: Former smoker Assessment/Plan All Active Problems (Last Reviewed 04/11/17 @ 11:06 by Elihsa Boss NP-C) Shortness of breath (Acute) H/O chest tube placement (Resolved) Acute and chronic respiratory failure with hypercapnia (Acute) COPD exacerbation (Acute) 1. Acute on chronic hypoxic and hypercapnic respiratory failure due to COPD exacerbation' resolving. SOB is much better on BIPAP qhs and 3L of oxygen by NC during the day on IV solumedrol 40mg q8. Will switch to PO prednisone 40mg daily today 2. Alcohol abuse, at risk of DTs patient having tremors of his UEs today CIWA score is 8 last drink was on day of admission, ~ 2 days ago drinks ~ 3-4 beers daily on alcohol withdrawal protocol with ativan; patient remained tremulous even with ativan. Will switch to alcohol protocol with Librium. patient at risk of DTs, noted to be more tachycardic than usual. will monitor 3. COPD exacerbation due to noncompliance with inhalers improving. imaging showed hyperinflation of lungs consistent with COPD. IV solumedrol; switching to PO prednisone today BIPAP and INO2 as mentioned above 4. Hypertension Fairly controlled. Blood pressure in the 150s-160s. on lisinopril. Will continue 5. Hyponatremia This is chronic. Na is 130 today. Serum osmolality was 130. thought to be due to chronic alcohol abuse patient appears euvolemic. will monitor 6. Hyperlipidemia: on pravastatin. Code Status: Full code. This note was generated with TappTimeation software. It may contain incorrect words, spelling, and punctuation that were not noted in checking the note before signing. Code Visit Inpatient E&M: 52918 Subs Hosp L3
--- NOTE | 2017-10-18 11:33 | PN_ITS ---
Patient Problems: Active and Suspected Problems (Last Reviewed 04/11/17 @ 11:06 by MOE Dixon) Shortness of breath (Acute) Subjective: Patient seen an examined. He was on BIPAP and was comfortable. He felt comfortable with the BIPAP off and had been on it overnight. Patient was noted to have tremors of his extremities. He denied craving a drink right now. Denied any cough or chest pain, abdominal pain, any diarrhea vomiting. Tremors were noted to be very pronounced. Patient denied any history of delirium tremens. Vitals/I&O's: Vital Signs Temp Pulse Resp BP Pulse Ox 99.0 F 119 H 18 154/88 H 94 10/18/17 09:04 10/18/17 10:34 10/18/17 10:34 10/18/17 09:04 10/18/17 09:04 Oxygen Flow Rate (L/min) 3 Oxygen Delivery Method Nasal Cannula Weight: 126 lb 5.198 oz Body Mass Index (BMI) 20.4 Intake and Output for Last 24 Hours 10/16/17 10/17/17 10/18/17 23:59 23:59 23:59 Intake Total 360 / 360 Output Total 250 / 250 1125 / 1125 550 / 550 Balance -250 / -250 -765 / -765 -550 / -550 General: Alert, Oriented x3, Cooperative, No apparent distress HEENT: Atraumatic, PERRLA, EOMI, Normocephalic Oral: Moist Mucosa Neck: Supple, No JVD, Negative Carotid Bruits Lungs: Clear to auscultation, Normal air movement, No rhonchi, No wheeze, No rales Cardiovascular: Regular rate, Normal S1, Normal S2, Tachycardic Abdomen: Bowel Sounds Present, Soft, Non Tender, Non-Distended, No Hepato- splenomegaly Extremities: No clubbing, No cyanosis, No edema, Capillary Refill Less than 3 Seconds Skin: No rashes, No breakdown Musculoskeletal: No Tenderness to Palpation of Joints or Extremities Lymphatic: No Cervical, Supraclavicular, or Inguinal Adenopathy Neurological: Cranial nerves II-XII grossly intact, - - tremors of his upper extremities Psych/Mental Status: Normal Affect, Appropriate, Alert and oriented to time, place, person, mood and affect Laboratory Results 10/17/17 14:02: Serum Osmolality 267 L 10/18/17 07:40: WBC 12.1 H, RBC 3.69 L, Hgb 11.7 L, Hct 34.8 L, MCV 94.3 H, MCH 31.7, MCHC 33.6, RDW 13.4, RDW Differential 44.5 H, Plt Count 286, MPV 8.6, Immature Gran % (Auto) 0.200, Neut % (Auto) 94.5 H, Lymph % (Auto) 2.6 L, [place] % (Auto) 2.7, Eos % (Auto) 0.0, Baso % (Auto) 0.0, Absolute Neuts (auto) 11.5 H , Absolute Lymphs (auto) 0.32 L, Total Counted Not Reportable, Differential Comment COMMENT 10/18/17 07:40: Sodium 130 L, Potassium 4.7, Chloride 89 L, Carbon Dioxide 31.0 , Anion Gap 10, BUN 14, Creatinine 0.59 L, Estim Creat Clear Calc 117.35, Est GFR (MDRD) Af Amer 184, Est GFR (MDRD) Non-Af 152, BUN/Creatinine Ratio 23.7 H, Glucose 123 H, Calcium 8.7 Diagnostic Data Chest X-Ray 10/16/17 15:59 IMPRESSION: Normal x-ray examination of the chest. Healed left rib fracture. Electronically Signed: Otoniel Tapia MD at 16:17 EDT , Service support , Current Medications Acetaminophen (Tylenol) 650 mg PO Q6H PRN PRN PRN Reason: Non-cardiac pain (mod-severe) Last Admin: 10/16/17 22:18 Dose: 650 mg Albuterol Sulfate (Ventolin Aerosols) 2.5 mg INHALATION Q2H PRN PRN PRN Reason: SOB &/OR WHEEZING Last Admin: 10/18/17 07:22 Dose: 2.5 mg Albuterol/Ipratropium (Duoneb) 3 ml INHALATION Q4H.RT [facility] Last Admin: 10/18/17 10:34 Dose: 3 ml Diazepam (Valium) 5 mg PO Q24H PRN PRN Reason: Agitation Enoxaparin Sodium (Lovenox) 40 mg SC DAILY@1000 ROSA Last Admin: 10/18/17 09:22 Dose: 40 mg Folic Acid (Folic Acid) 1 mg PO DAILY@0800 [facility] Stop: 10/19/17 08:01 Last Admin: 10/18/17 09:22 Dose: 1 mg Sodium Chloride () 250 mls @ 15 mls/hr IV .[id number] PRN PRN Reason: SALINE FLUSH Lisinopril (Zestril) 20 mg PO DAILY [facility] Last Admin: 10/18/17 09:22 Dose: 20 mg Lorazepam (Ativan) 2 mg PO Q2H PRN PRN; Protocol PRN Reason: CIWA score > 8 but <15 Last Admin: 10/18/17 09:20 Dose: 2 mg Lorazepam (Ativan) 2 mg PO UD PRN; Protocol PRN Reason: CIWA score >/=15. Lorazepam (Ativan) 2 mg IV Q2H PRN PRN; Protocol PRN Reason: CIWA score > 8 but <15 Last Admin: 10/18/17 11:08 Dose: 1 mg Lorazepam (Ativan) 2 mg IV UD PRN; Protocol PRN Reason: CIWA score >/=15. Magnesium Hydroxide (Milk Of Magnesia) 30 ml PO DAILY PRN PRN PRN Reason: Constipation Methylprednisolone (Solu-Medrol) 40 mg IV Q8 [facility] Last Admin: 10/18/17 05:18 Dose: 40 mg Multivitamins/Minerals ([facility]) [facility] Last Admin: 10/18/17 09:22 Dose: 1 tablet Nutritional Formula (Lactose Free) (Ensure Enlive) 120 ml PO 4X/DAY [facility] Last Admin: 10/18/17 09:21 Dose: 120 ml Ondansetron HCl (Zofran) 4 mg IV Q4H PRN PRN PRN Reason: NAUSEA Last Admin: 10/17/17 17:25 Dose: 4 mg Pravastatin Sodium (Pravachol) 20 mg PO QHS [facility] Last Admin: 10/17/17 21:08 Dose: 20 mg Sodium Chloride () 5 - 30 ml IV UD PRN PRN Reason: SALINE FLUSH Last Admin: 10/17/17 05:08 Dose: 10 ml Thiamine HCl ([facility]itamin B1) [facility] Stop: 10/20/17 08:01 Last Admin: 10/18/17 09:23 Dose: 100 mg Medical Necessity - Tobacco Use Smoking Status: Former smoker Assessment/Plan All Active Problems (Last Reviewed 04/11/17 @ 11:06 by Elisha Boss NP-C) Shortness of breath (Acute) H/O chest tube placement (Resolved) Acute and chronic respiratory failure with hypercapnia (Acute) COPD exacerbation (Acute) 1. Acute on chronic hypoxic and hypercapnic respiratory failure due to COPD exacerbation' * resolving. SOB is much better * on BIPAP qhs and 3L of oxygen by NC during the day * on IV solumedrol 40mg q8. Will switch to PO prednisone 40mg daily today * 2. Alcohol abuse, at risk of DTs * patient having tremors of his UEs today * CIWA score is 8 * last drink was on day of admission, ~ 2 days ago * drinks ~ 3-4 beers daily * on alcohol withdrawal protocol with ativan; patient remained tremulous even with ativan. Will switch to alcohol protocol with Librium. * patient at risk of DTs, noted to be more tachycardic than usual. * will monitor * 3. COPD exacerbation due to noncompliance with inhalers * improving. * imaging showed hyperinflation of lungs consistent with COPD. * IV solumedrol; switching to PO prednisone today * BIPAP and INO2 as mentioned above * * 4. Hypertension * Fairly controlled. Blood pressure in the 150s-160s. * on lisinopril. Will continue * 5. Hyponatremia * This is chronic. Na is 130 today. Serum osmolality was 130. * thought to be due to chronic alcohol abuse * patient appears euvolemic. will monitor * 6. Hyperlipidemia: on pravastatin. Code Status: Full code. This note was generated with Calpanoation software. It may contain incorrect words, spelling, and punctuation that were not noted in checking the note before signing. Code Visit Inpatient E&M: 40186 Subs Hosp L3
[2017-10-18] MEDS: chlordiazePOXIDE 25 MG Capsule 50 MG PO ×2 (12:52→18:38)
[2017-10-18] MEDS: Metoprolol Tartrate 5 MG/5 ML Vial IV (12:53)
[2017-10-18] MEDS: 0.9% NaCl Peripheral Flush Adult/Peds IV ×3 (14:40→21:08)
--- NOTE | 2017-10-18 19:55 | NURSING ---
Pt. confused, taking off bipap, trying to get OOB often, is at bedside. Reoriented pt. Moving patient to room 129 at this time for safety and closer nursing observation. VSS.
[2017-10-18] MEDS: Pravastatin 20 MG Tablet PO (20:59)
--- NOTE | 2017-10-18 21:10 | NURSING ---
Patient refusing to wear bipap at this time. pox 95% on 4L NC. Pt. confused. Will monitor.
--- NOTE | 2017-10-18 22:00 | NURSING ---
Dr. Roberto notified that pt. continues to try to pull off bipap and is very confused. Asked if she wanted ABGs at this time. She prefers Bipap stays on all night. No order for ABGs at this time. Dr. Roberto instructed this nurse not to wake pt. for anything once he falls asleep. Not even vital signs. Pt. has been extremely difficult to care for, trying to get OOB often, pulling off bipap mask, uncooperative with care due to confusion. HEALTHCARE MANAGEMENT CONSULTANT placed in room as sitter at this time. Will continue to monitor.
[2017-10-19] VITALS (14 sets, daily range): BP systolic 142–168; BP diastolic 83–96; PULSE 58–114; RESP 12–24; TEMP 36.6–37.1; O2SAT 93–100
[2017-10-19] MEDS: chlordiazePOXIDE 25 MG Capsule 50 MG PO (06:36)
[2017-10-19] MEDS: 0.9% NaCl Peripheral Flush Adult/Peds IV (06:37)
[2017-10-19 06:57] LABS: Absolute Lymphocyte Count 0.58 X10^3/ul (0.83-4.51); Absolute Neutrophil Count 10.6 X10^3/uL (2.0-7.7); Hematocrit 36.9 % (40-54); Hemoglobin 12.1 g/dl (13.0-16.5); Lymphocyte # 0.58 X10^3/ul (4.0); Lymphocyte % 4.9 % (19-41); Mean Corp Hgb Conc 32.8 g/gl (32-36); Mean Corpuscular Hgb 31.4 pg (27.0-32.0); Mean Corpuscular Volume 95.8 fL (80-94); Mean Platelet Vol. 8.2 fl (6.2-12.0); Monocyte# 0.63 X10^3/uL; Monocyte% 5.3 % (0-10); Neutrophil # 10.59 X10^3/uL (2.7-7.7); Neutrophil % 89.6 % (47-70); Platelet Count 279 K/mm3 (150-450); RBC Distribution Width CV 13.5 % (11.6-14.6); RBC Distribution Width SD 45.7 fl (35.1-43.9); Red Blood Count 3.85 M/mm3 (4.6-6.2); White Blood Count 11.8 K/mm3 (4.4-11.0)
[2017-10-19 06:58] LABS: Differential Indicated SCAN CRITERIA MET; POSITIVE COUNT NO; POSITIVE DIFFERENTIAL YES; POSITIVE MORPHOLOGY NO
[2017-10-19 06:59] LABS: Anion Gap 6 (5-15); BUN 14 mg/dL (7-18); BUN/Creat Ratio 21.6 RATIO (10-20); Calcium,Total 8.6 mg/dL (8.5-10.1); Chloride 92 mmol/L (98-107); Creatinine, Serum 0.65 mg/dL (0.70-1.30); EST Glomerular Filtration Rate 137 mL/min (>60); Est Glom Filt Rate - Afr Amer 165 mL/min (>60); Estimated Creatinine Clearance 106.52 ml/min; Glucose 133 mg/dL (74-106); Magnesium 2.5 mg/dL (1.6-2.6); Potassium 4.5 mmol/L (3.5-5.1); Sodium Level 134 mmol/L (136-145)
[2017-10-19] MEDS: Ipratropium/Albuterol Sulfate 3 ML AMPUL.NEB INHALATION ×2 (07:09→10:32)
[2017-10-19] MEDS: Folic Acid 1 MG Tablet PO (08:14)
[2017-10-19] MEDS: Multivitamins,Ther W-Minerals Tablet 1 TABLET PO (08:14)
[2017-10-19] MEDS: Thiamine Hydrochloride 100 MG Tablet PO (08:14)
[2017-10-19] MEDS: LORazepam 1 MG Tablet 2 MG PO (08:14)
--- NOTE | 2017-10-19 08:30 | NURSING ---
Echo in progress
[2017-10-19] MEDS: Albuterol 2.5 MG/3 ML VIAL.NEB. INHALATION (09:03)
--- NOTE | 2017-10-19 09:48 | PCM.DC ---
- Discharge Diagnoses Current Active Problems: Current Active and Chronic Problems (Last Reviewed 04/11/17 @ 11:06 by MOE Dixon) Shortness of breath (Acute) You will use the following diet at home:: Cardiac Your food should be the consistency of: Regular Your liquids should be the consistency of: Regular/Thin Discharge Activity: Return to Normal Activity Weight Bearing Status: Weight bearing as tolerated Call your doctor if you observe: Shortness of breath Instructions: What is COPD?, Using Oxygen Safely Allergies/Adverse Reactions: Allergies No Known Allergies Allergy (Verified 10/16/17 15:49) Medications to take at Discharge Pravastatin Sodium [Pravachol] 20 mg PO QHS 03/23/16 Lisinopril [Zestril] 20 mg PO DAILY #30 tab 08/23/16 Aspirin [Aspirin, Baby] 81 mg PO DAILY@0800 10/16/17 Albuterol Aerosols [Ventolin Aerosols] 2.5 mg INHALATION Q4H PRN #30 ml 10/19/17 Albuterol Inhaler [Ventolin Hfa] 2 puff INHALATION Q4H PRN PRN #1 inhaler 10/19/17 Azithromycin 500 mg PO DAILY #5 tab 10/19/17 Budesonide 0.5 mg INHALATION Q12H #30 ampul.neb 10/19/17 Ipratropium/Albuterol Respimat [Combivent Respimat Inhal [place]] 1 puff INHALATION 4X/DAY #1 inhaler 10/19/17 Prednisone 40 mg PO DAILY 5 Days #10 tab 10/19/17 The following prescriptions were given: Albuterol Inhaler [Ventolin Hfa] 2 puff INHALATION Q4H PRN PRN #1 inhaler PRN Reason: Shortness Of Breath Albuterol Aerosols [Ventolin Aerosols] 2.5 mg INHALATION Q4H PRN #30 ml PRN Reason: shortness of breath or wheezing Azithromycin 500 mg PO DAILY #5 tab Budesonide 0.5 mg INHALATION Q12H #30 ampul.neb Prednisone 40 mg PO DAILY 5 Days #10 tab Ipratropium/Albuterol Respimat [Combivent Respimat Inhal [place]] 1 puff INHALATION 4X/DAY #1 inhaler Primary Care Physician: Ketan Peralta MD [Primary Care Provider] - Please follow up with your Primary Care Physician in: one week Test Results: Test results from this visit will be discussed in further detail at your follow-up appointment, if applicable. Proposed Discharge Date: 10/19/17
--- NOTE | 2017-10-19 09:50 | PCM.DC.SUM ---
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 Healed left rib fracture. Electronically Signed: Otoniel Tapia MD at 16:17 EDT , Service support , Laboratory Tests 10/16/17 10/16/17 10/16/17 16:00 16:00 16:00 WBC 10.6 RBC 4.17 L Hgb 12.9 L Hct 38.8 L MCV 93.0 MCH 30.9 MCHC 33.2 RDW 13.7 RDW Differential 46.5 H Plt Count 293 MPV 8.2 Immature Gran % (Auto) 0.200 Neut % (Auto) 84.6 H Lymph % (Auto) 8.6 L [place] % (Auto) 6.0 Eos % (Auto) 0.4 Baso % (Auto) 0.2 Absolute Neuts (auto) 8.9 H Absolute Lymphs (auto) 0.91 Total Counted Not Reportable Differential Comment Specimen Type Sample Site pH Bicarbonate Actual POC Total CO2 Base Excess O2 Saturation O2 % ABG pCO2 ABG pO2 Romulo Test Respiration Rate O2 Delivery Device EPAP IPAP Blood Gas Notified Whom Blood Gas Notified Time Sodium 121 L Potassium 4.6 Chloride 83 L Carbon Dioxide 32.0 Anion Gap 6 BUN 3 L Creatinine 0.56 L Estim Creat Clear Calc 127.09 Est GFR (MDRD) Af Amer 197 Est GFR (MDRD) Non-Af 162 BUN/Creatinine Ratio 5.4 L Glucose 113 H Serum Osmolality Lactic Acid 1.9 Calcium 9.0 Phosphorus Magnesium Troponin I < 0.015 Ethyl Alcohol 10/16/17 10/16/17 10/16/17 16:00 16:44 16:56 WBC RBC Hgb Hct MCV MCH MCHC RDW RDW Differential Plt Count MPV Immature Gran % (Auto) Neut % (Auto) Lymph % (Auto) [place] % (Auto) Eos % (Auto) Baso % (Auto) Absolute Neuts (auto) Absolute Lymphs (auto) Total Counted Differential Comment Specimen Type ART Sample Site R Radial pH 7.33 L Bicarbonate Actual 30.6 H POC Total CO2 32 Base Excess 5 H O2 Saturation 99 O2 % 50 ABG pCO2 57.6 H ABG pO2 180 H Romulo Test POS Respiration Rate 12 O2 Delivery Device Bi / C PAP EPAP 7 IPAP 14 Blood Gas Notified Whom ED MD Blood Gas Notified Time 1658 Sodium Potassium Chloride Carbon Dioxide Anion Gap BUN Creatinine Estim Creat Clear Calc Est GFR (MDRD) Af Amer Est GFR (MDRD) Non-Af BUN/Creatinine Ratio Glucose Serum Osmolality Lactic Acid Calcium Phosphorus 2.6 Magnesium 1.8 Troponin I Ethyl Alcohol 5.0 10/17/17 10/17/17 10/17/17 05:20 05:20 14:02 WBC 4.4 RBC 3.81 L Hgb 11.9 L Hct 35.4 L MCV 92.9 MCH 31.2 MCHC 33.6 RDW 13.2 RDW Differential 43.5 Plt Count 291 MPV 8.4 Immature Gran % (Auto) 0.200 Neut % (Auto) 92.5 H Lymph % (Auto) 6.6 L [place] % (Auto) 0.7 Eos % (Auto) 0.0 Baso % (Auto) 0.0 Absolute Neuts (auto) 4.1 Absolute Lymphs (auto) 0.29 L Total Counted Not Reportable Differential Comment Specimen Type Sample Site pH Bicarbonate Actual POC Total CO2 Base Excess O2 Saturation O2 % ABG pCO2 ABG pO2 Romulo Test Respiration Rate O2 Delivery Device EPAP IPAP Blood Gas Notified Whom Blood Gas Notified Time Sodium 127 L Potassium 4.7 Chloride 86 L Carbon Dioxide 30.0 Anion Gap 11 BUN 7 Creatinine 0.62 L Estim Creat Clear Calc 111.67 Est GFR (MDRD) Af Amer 175 Est GFR (MDRD) Non-Af 145 BUN/Creatinine Ratio 11.3 Glucose 138 H Serum Osmolality 267 L Lactic Acid Calcium 8.6 Phosphorus Magnesium Troponin I Ethyl Alcohol 10/18/17 10/18/17 10/19/17 07:40 07:40 06:25 WBC 12.1 H RBC 3.69 L Hgb 11.7 L Hct 34.8 L MCV 94.3 H MCH 31.7 MCHC 33.6 RDW 13.4 RDW Differential 44.5 H Plt Count 286 MPV 8.6 Immature Gran % (Auto) 0.200 Neut % (Auto) 94.5 H Lymph % (Auto) 2.6 L [place] % (Auto) 2.7 Eos % (Auto) 0.0 Baso % (Auto) 0.0 Absolute Neuts (auto) 11.5 H Absolute Lymphs (auto) 0.32 L Total Counted Not Reportable Differential Comment COMMENT Specimen Type Sample Site pH Bicarbonate Actual POC Total CO2 Base Excess O2 Saturation O2 % ABG pCO2 ABG pO2 Romulo Test Respiration Rate O2 Delivery Device EPAP IPAP Blood Gas Notified Whom Blood Gas Notified Time Sodium 130 L 134 L Potassium 4.7 4.5 Chloride 89 L 92 L Carbon Dioxide 31.0 36.0 H Anion Gap 10 6 BUN 14 14 Creatinine 0.59 L 0.65 L Estim Creat Clear Calc 117.35 106.52 Est GFR (MDRD) Af Amer 184 165 Est GFR (MDRD) Non-Af 152 137 BUN/Creatinine Ratio 23.7 H 21.6 H Glucose 123 H 133 H Serum Osmolality Lactic Acid Calcium 8.7 8.6 Phosphorus Magnesium 2.5 Troponin I Ethyl Alcohol 10/19/17 06:25 WBC 11.8 H RBC 3.85 L Hgb 12.1 L Hct 36.9 L MCV 95.8 H MCH 31.4 MCHC 32.8 RDW 13.5 RDW Differential 45.7 H Plt Count 279 MPV 8.2 Immature Gran % (Auto) 0.200 Neut % (Auto) 89.6 H Lymph % (Auto) 4.9 L [place] % (Auto) 5.3 Eos % (Auto) 0.0 Baso % (Auto) 0.0 Absolute Neuts (auto) 10.6 H Absolute Lymphs (auto) 0.58 L Total Counted Not Reportable Differential Comment Specimen Type Sample Site pH Bicarbonate Actual POC Total CO2 Base Excess O2 Saturation O2 % ABG pCO2 ABG pO2 Romulo Test Respiration Rate O2 Delivery Device EPAP IPAP Blood Gas Notified Whom Blood Gas Notified Time Sodium Potassium Chloride Carbon Dioxide Anion Gap BUN Creatinine Estim Creat Clear Calc Est GFR (MDRD) Af Amer Est GFR (MDRD) Non-Af BUN/Creatinine Ratio Glucose Serum Osmolality Lactic Acid Calcium Phosphorus Magnesium Troponin I Ethyl Alcohol Operations: None Procedures: None Summary of Care Provided: The patient is a 52 year old M with a history of COPD on 2-3 L of oxygen at home, hypertension and hyperlipidemia as well as alcohol abuse. He was admitted by the ED on 10/16/2017 with a complaint of shortness of breath for 2 days prior to admission. He had been noncompliant with his inhalers for a few days prior to admission shortness of breath worsened with associated cough productive of clear sputum. He had a subjective fever but denied any chills and also had assisted nausea and vomiting. In the ED vitals showed temperature of 98.8, blood pressure of 210/110, respiratory rate of 118, respiratory rate of 23 he was breathing 99% on a nonrebreather mask. EKG done shows sinus tachycardia with a heart rate of 125 and a shortened [place], troponin was negative and lactic acid was 1.9. BMP was significant for sodium of 121 and CBC showed hemoglobin of 8.7 with white cell count of around 9. Chest x-ray done showed severe emphysematous changes but no pneumothorax or pneumonia. He was admitted and managed for acute on chronic respiratory failure, due to COPD exacerbation due to noncompliance and started on breathing treatments and IV Solu-Medrol as well as oxygen and BiPAP. He stabilized and improved and successfully weaned off of BiPAP onto oxygen by nasal cannula. He was on oxygen at his usual dose of 2-3 L. Patient was on alcohol withdrawal protocol with Ativan. However subsequently his CIWA scores increased and patient started having tremors and agitation. He was diagnosed with alcohol withdrawal symptoms and switched to alcohol withdrawal protocol with Librium. CIWA score ranged around 8-9. Patient was seen on day of discharge and looked much better. Tremors had resolved and patient wanted to go home. He was discharged home with a prescription for all his inhalers and a 5 day course of p.o. azithromycin 500 mg daily. He is to follow-up with his primary care doctor in 1 week. Patient seen and examined prior to discharge. He had no complaints and had a good night. He denied any fever or chills, any cough or chest pain, shortness of breath, abdominal pain, diarrhea vomiting. He was on 2 L of oxygen at time of review. o/e: Vital Signs Height 5 ft 6 in Weight: 126 lb 5.198 oz Weight in Pounds 126.3 lbs Pulse Ox 94 Temperature 98.7 F Pulse Rate 110 Respiratory Rate 18 Blood Pressure 162/96 Blood Pressure Position Semi-Fowlers General: Alert, Oriented x3, Cooperative, No apparent distress HEENT: Atraumatic, PERRLA, EOMI, Normocephalic Oral: Moist Mucosa Neck: Supple, No JVD, Negative Carotid Bruits Lungs: Clear to auscultation, has mild wheezing in all lung roland. No crackles auscultated. Lungs sound mildly tight. Cardiovascular: Regular rate, Normal S1, Normal S2, Tachycardic Abdomen: Bowel Sounds Present, Soft, Non Tender, Non-Distended, No Hepato-splenomegaly Extremities: No clubbing, No cyanosis, No edema, Capillary Refill Less than 3 Seconds Skin: No rashes, No breakdown Musculoskeletal: No Tenderness to Palpation of Joints or Extremities Lymphatic: No Cervical, Supraclavicular, or Inguinal Adenopathy Neurological: Cranial nerves II-XII grossly intact, - - tremors of his upper extremities Psych/Mental Status: Normal Affect, Appropriate, Alert and oriented to time, place, person, mood and affect [] Home medications reviewed and reconciled. Plan as stated above. Discharge Diet: 2000 mg Sodium Diet Discharge Activity: Return to Normal Activity Weight Bearing Status: Weight bearing as tolerated Call your doctor if you observe: Shortness of breath Home Medications: Medications to take at Discharge Pravastatin Sodium [Pravachol] 20 mg PO QHS 03/23/16 Lisinopril [Zestril] 20 mg PO DAILY #30 tab 08/23/16 Aspirin [Aspirin, Baby] 81 mg PO DAILY@0800 10/16/17 Albuterol Aerosols [Ventolin Aerosols] 2.5 mg INHALATION Q4H PRN #30 ml 10/19/17 Albuterol Inhaler [Ventolin Hfa] 2 puff INHALATION Q4H PRN PRN #1 inhaler 10/19/17 Azithromycin 500 mg PO DAILY #5 tab 10/19/17 Budesonide 0.5 mg INHALATION Q12H #30 ampul.neb 10/19/17 Ipratropium/Albuterol Respimat [Combivent Respimat Inhal [place]] 1 puff INHALATION 4X/DAY #1 inhaler 10/19/17 Prednisone 40 mg PO DAILY 5 Days #10 tab 10/19/17 Following Prescrptions Were Given to Patient: Albuterol Inhaler [Ventolin Hfa] 2 puff INHALATION Q4H PRN PRN #1 inhaler PRN Reason: Shortness Of Breath Albuterol Aerosols [Ventolin Aerosols] 2.5 mg INHALATION Q4H PRN #30 ml PRN Reason: shortness of breath or wheezing Azithromycin 500 mg PO DAILY #5 tab Budesonide 0.5 mg INHALATION Q12H #30 ampul.neb Prednisone 40 mg PO DAILY 5 Days #10 tab Ipratropium/Albuterol Respimat [Combivent Respimat Inhal [place]] 1 puff INHALATION 4X/DAY #1 inhaler Primary Care Physician: Ketan Peralta MD [Primary Care Provider] - Please follow up with your Primary Care Physician in: one week Patient Instructions: What is COPD?, Using Oxygen Safely Disposition: Home Minutes spent on discharge:: 40 Patient Condition:: Stable Medical Necessity - Tobacco Use Smoking Status: Former smoker Meaningful Use Info Meaningful Use Diagnoses (Choose all that apply): None applicable Code Visit Inpatient E&M: 31155 Disch Hosp
[2017-10-19] MEDS: Lisinopril 20 MG Tablet PO (09:55)
[2017-10-19] MEDS: Enoxaparin 40 MG/0.4 ML Syringe SC (09:55)
--- NOTE | 2017-10-19 09:55 | DS.PCM_ITS ---
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 Healed left rib fracture. Electronically Signed: Otoniel Tapia MD at 16:17 EDT , Service support , Laboratory Tests 10/16/17 10/16/17 10/16/17 16:00 16:00 16:00 WBC 10.6 RBC 4.17 L Hgb 12.9 L Hct 38.8 L MCV 93.0 MCH 30.9 MCHC 33.2 RDW 13.7 RDW Differential 46.5 H Plt Count 293 MPV 8.2 Immature Gran % (Auto) 0.200 Neut % (Auto) 84.6 H Lymph % (Auto) 8.6 L [place] % (Auto) 6.0 Eos % (Auto) 0.4 Baso % (Auto) 0.2 Absolute Neuts (auto) 8.9 H Absolute Lymphs (auto) 0.91 Total Counted Not Reportable Differential Comment Specimen Type Sample Site pH Bicarbonate Actual POC Total CO2 Base Excess O2 Saturation O2 % ABG pCO2 ABG pO2 Romulo Test Respiration Rate O2 Delivery Device EPAP IPAP Blood Gas Notified Whom Blood Gas Notified Time Sodium 121 L Potassium 4.6 Chloride 83 L Carbon Dioxide 32.0 Anion Gap 6 BUN 3 L Creatinine 0.56 L Estim Creat Clear Calc 127.09 Est GFR (MDRD) Af Amer 197 Est GFR (MDRD) Non-Af 162 BUN/Creatinine Ratio 5.4 L Glucose 113 H Serum Osmolality Lactic Acid 1.9 Calcium 9.0 Phosphorus Magnesium Troponin I < 0.015 Ethyl Alcohol 10/16/17 10/16/17 10/16/17 16:00 16:44 16:56 WBC RBC Hgb Hct MCV MCH MCHC RDW RDW Differential Plt Count MPV Immature Gran % (Auto) Neut % (Auto) Lymph % (Auto) [place] % (Auto) Eos % (Auto) Baso % (Auto) Absolute Neuts (auto) Absolute Lymphs (auto) Total Counted Differential Comment Specimen Type ART Sample Site R Radial pH 7.33 L Bicarbonate Actual 30.6 H POC Total CO2 32 Base Excess 5 H O2 Saturation 99 O2 % 50 ABG pCO2 57.6 H ABG pO2 180 H Romulo Test POS Respiration Rate 12 O2 Delivery Device Bi / C PAP EPAP 7 IPAP 14 Blood Gas Notified Whom ED MD Blood Gas Notified Time 1658 Sodium Potassium Chloride Carbon Dioxide Anion Gap BUN Creatinine Estim Creat Clear Calc Est GFR (MDRD) Af Amer Est GFR (MDRD) Non-Af BUN/Creatinine Ratio Glucose Serum Osmolality Lactic Acid Calcium Phosphorus 2.6 Magnesium 1.8 Troponin I Ethyl Alcohol 5.0 10/17/17 10/17/17 10/17/17 05:20 05:20 14:02 WBC 4.4 RBC 3.81 L Hgb 11.9 L Hct 35.4 L MCV 92.9 MCH 31.2 MCHC 33.6 RDW 13.2 RDW Differential 43.5 Plt Count 291 MPV 8.4 Immature Gran % (Auto) 0.200 Neut % (Auto) 92.5 H Lymph % (Auto) 6.6 L [place] % (Auto) 0.7 Eos % (Auto) 0.0 Baso % (Auto) 0.0 Absolute Neuts (auto) 4.1 Absolute Lymphs (auto) 0.29 L Total Counted Not Reportable Differential Comment Specimen Type Sample Site pH Bicarbonate Actual POC Total CO2 Base Excess O2 Saturation O2 % ABG pCO2 ABG pO2 Romulo Test Respiration Rate O2 Delivery Device EPAP IPAP Blood Gas Notified Whom Blood Gas Notified Time Sodium 127 L Potassium 4.7 Chloride 86 L Carbon Dioxide 30.0 Anion Gap 11 BUN 7 Creatinine 0.62 L Estim Creat Clear Calc 111.67 Est GFR (MDRD) Af Amer 175 Est GFR (MDRD) Non-Af 145 BUN/Creatinine Ratio 11.3 Glucose 138 H Serum Osmolality 267 L Lactic Acid Calcium 8.6 Phosphorus Magnesium Troponin I Ethyl Alcohol 10/18/17 10/18/17 10/19/17 07:40 07:40 06:25 WBC 12.1 H RBC 3.69 L Hgb 11.7 L Hct 34.8 L MCV 94.3 H MCH 31.7 MCHC 33.6 RDW 13.4 RDW Differential 44.5 H Plt Count 286 MPV 8.6 Immature Gran % (Auto) 0.200 Neut % (Auto) 94.5 H Lymph % (Auto) 2.6 L [place] % (Auto) 2.7 Eos % (Auto) 0.0 Baso % (Auto) 0.0 Absolute Neuts (auto) 11.5 H Absolute Lymphs (auto) 0.32 L Total Counted Not Reportable Differential Comment COMMENT Specimen Type Sample Site pH Bicarbonate Actual POC Total CO2 Base Excess O2 Saturation O2 % ABG pCO2 ABG pO2 Romulo Test Respiration Rate O2 Delivery Device EPAP IPAP Blood Gas Notified Whom Blood Gas Notified Time Sodium 130 L 134 L Potassium 4.7 4.5 Chloride 89 L 92 L Carbon Dioxide 31.0 36.0 H Anion Gap 10 6 BUN 14 14 Creatinine 0.59 L 0.65 L Estim Creat Clear Calc 117.35 106.52 Est GFR (MDRD) Af Amer 184 165 Est GFR (MDRD) Non-Af 152 137 BUN/Creatinine Ratio 23.7 H 21.6 H Glucose 123 H 133 H Serum Osmolality Lactic Acid Calcium 8.7 8.6 Phosphorus Magnesium 2.5 Troponin I Ethyl Alcohol 10/19/17 06:25 WBC 11.8 H RBC 3.85 L Hgb 12.1 L Hct 36.9 L MCV 95.8 H MCH 31.4 MCHC 32.8 RDW 13.5 RDW Differential 45.7 H Plt Count 279 MPV 8.2 Immature Gran % (Auto) 0.200 Neut % (Auto) 89.6 H Lymph % (Auto) 4.9 L [place] % (Auto) 5.3 Eos % (Auto) 0.0 Baso % (Auto) 0.0 Absolute Neuts (auto) 10.6 H Absolute Lymphs (auto) 0.58 L Total Counted Not Reportable Differential Comment Specimen Type Sample Site pH Bicarbonate Actual POC Total CO2 Base Excess O2 Saturation O2 % ABG pCO2 ABG pO2 Romulo Test Respiration Rate O2 Delivery Device EPAP IPAP Blood Gas Notified Whom Blood Gas Notified Time Sodium Potassium Chloride Carbon Dioxide Anion Gap BUN Creatinine Estim Creat Clear Calc Est GFR (MDRD) Af Amer Est GFR (MDRD) Non-Af BUN/Creatinine Ratio Glucose Serum Osmolality Lactic Acid Calcium Phosphorus Magnesium Troponin I Ethyl Alcohol Operations: None Procedures: None Summary of Care Provided: The patient is a 52 year old M with a history of COPD on 2-3 L of oxygen at home , hypertension and hyperlipidemia as well as alcohol abuse. He was admitted by the ED on 10/16/2017 with a complaint of shortness of breath for 2 days prior to admission. He had been noncompliant with his inhalers for a few days prior to admission shortness of breath worsened with associated cough productive of clear sputum. He had a subjective fever but denied any chills and also had assisted nausea and vomiting. In the ED vitals showed temperature of 98.8, blood pressure of 210/110, respiratory rate of 118, respiratory rate of 23 he was breathing 99% on a nonrebreather mask. EKG done shows sinus tachycardia with a heart rate of 125 and a shortened [place], troponin was negative and lactic acid was 1.9. BMP was significant for sodium of 121 and CBC showed hemoglobin of 8.7 with white cell count of around 9. Chest x-ray done showed severe emphysematous changes but no pneumothorax or pneumonia. He was admitted and managed for acute on chronic respiratory failure, due to COPD exacerbation due to noncompliance and started on breathing treatments and IV Solu-Medrol as well as oxygen and BiPAP. He stabilized and improved and successfully weaned off of BiPAP onto oxygen by nasal cannula. He was on oxygen at his usual dose of 2-3 L. Patient was on alcohol withdrawal protocol with Ativan. However subsequently his CIWA scores increased and patient started having tremors and agitation. He was diagnosed with alcohol withdrawal symptoms and switched to alcohol withdrawal protocol with Librium. CIWA score ranged around 8-9. Patient was seen on day of discharge and looked much better. Tremors had resolved and patient wanted to go home. He was discharged home with a prescription for all his inhalers and a 5 day course of p.o. azithromycin 500 mg daily. He is to follow-up with his primary care doctor in 1 week. Patient seen and examined prior to discharge. He had no complaints and had a good night. He denied any fever or chills, any cough or chest pain, shortness of breath, abdominal pain, diarrhea vomiting. He was on 2 L of oxygen at time of review. o/e: Vital Signs Height 5 ft 6 in Weight: 126 lb 5.198 oz Weight in Pounds 126.3 lbs Pulse Ox 94 Temperature 98.7 F Pulse Rate 110 Respiratory Rate 18 Blood Pressure 162/96 Blood Pressure Position Semi-Fowlers General: Alert, Oriented x3, Cooperative, No apparent distress HEENT: Atraumatic, PERRLA, EOMI, Normocephalic Oral: Moist Mucosa Neck: Supple, No JVD, Negative Carotid Bruits Lungs: Clear to auscultation, has mild wheezing in all lung roland. No crackles auscultated. Lungs sound mildly tight. Cardiovascular: Regular rate, Normal S1, Normal S2, Tachycardic Abdomen: Bowel Sounds Present, Soft, Non Tender, Non-Distended, No Hepato- splenomegaly Extremities: No clubbing, No cyanosis, No edema, Capillary Refill Less than 3 Seconds Skin: No rashes, No breakdown Musculoskeletal: No Tenderness to Palpation of Joints or Extremities Lymphatic: No Cervical, Supraclavicular, or Inguinal Adenopathy Neurological: Cranial nerves II-XII grossly intact, - - tremors of his upper extremities Psych/Mental Status: Normal Affect, Appropriate, Alert and oriented to time, place, person, mood and affect [] Home medications reviewed and reconciled. Plan as stated above. Discharge Diet: 2000 mg Sodium Diet Discharge Activity: Return to Normal Activity Weight Bearing Status: Weight bearing as tolerated Call your doctor if you observe: Shortness of breath Home Medications: Medications to take at Discharge Pravastatin Sodium [Pravachol] 20 mg PO QHS 03/23/16 Lisinopril [Zestril] 20 mg PO DAILY #30 tab 08/23/16 Aspirin [Aspirin, Baby] 81 mg PO DAILY@0800 10/16/17 Albuterol Aerosols [Ventolin Aerosols] 2.5 mg INHALATION Q4H PRN #30 ml Albuterol Inhaler [Ventolin Hfa] 2 puff INHALATION Q4H PRN PRN #1 inhaler Azithromycin 500 mg PO DAILY #5 tab 10/19/17 Budesonide 0.5 mg INHALATION Q12H #30 ampul.neb 10/19/17 Ipratropium/Albuterol Respimat [Combivent Respimat Inhal [place]] 1 puff INHALATION 4X/DAY #1 inhaler 10/19/17 Prednisone 40 mg PO DAILY 5 Days #10 tab 10/19/17 Following Prescrptions Were Given to Patient: Albuterol Inhaler [Ventolin Hfa] 2 puff INHALATION Q4H PRN PRN #1 inhaler PRN Reason: Shortness Of Breath Albuterol Aerosols [Ventolin Aerosols] 2.5 mg INHALATION Q4H PRN #30 ml PRN Reason: shortness of breath or wheezing Azithromycin 500 mg PO DAILY #5 tab Budesonide 0.5 mg INHALATION Q12H #30 ampul.neb Prednisone 40 mg PO DAILY 5 Days #10 tab Ipratropium/Albuterol Respimat [Combivent Respimat Inhal [place]] 1 puff INHALATION 4X/DAY #1 inhaler Primary Care Physician: Ketan Peralta MD [Primary Care Provider] - Please follow up with your Primary Care Physician in: one week Patient Instructions: What is COPD?, Using Oxygen Safely Disposition: Home Minutes spent on discharge:: 40 Patient Condition:: Stable Medical Necessity - Tobacco Use Smoking Status: Former smoker Meaningful Use Info Meaningful Use Diagnoses (Choose all that apply): None applicable Code Visit Inpatient E&M: 86450 Disch Hosp
--- NOTE | 2017-10-19 11:20 | CASEMGMT ---
MADIHA CM Note: Nikko script written. Will fax to [facility]. Pt will need to picking supervisor on discharge. Melita BLANCO RN ACM
--- NOTE | 2017-10-19 12:34 | CASEMGMT ---
RN CM Note: Intro role of CM to patient and his . Updated on walker script being faxed to [facility] per pt request. (Generally they use [employer], but local DME would allow pickup for them). has good understanding. No other dc concerns noted. Pt has home O2 already. Melita CLEARY CM ACM
--- NOTE | 2017-10-22 15:56 | CASEMGMT ---
MADIHA HARRINGTON DC PHONE CALL NOTE. Attempted call, no answer.
== END 2017-10-19 13:19 | disposition home or self-care (01) | DRG 190 ==
LOC: ED 17:06 → PCU 18:05
PROVIDERS: Family Medicine; Admitting Provider Student in an Organized Health Care Education/Training Program; Emergency Provider Emergency Medicine; Family Provider Family Medicine; PCP Family Medicine; Visit Provider Student in an Organized Health Care Education/Training Program
DX: J44.1 Chronic obstructive pulmonary disease with (acute) exacerbation (principal); J96.22 Acute and chronic respiratory failure with hypercapnia; J96.21 Acute and chronic respiratory failure with hypoxia; F10.239 Alcohol dependence with withdrawal, unspecified; E87.1 Hypo-osmolality and hyponatremia; Z99.81 Dependence on supplemental oxygen; Z87.891 Personal history of nicotine dependence; R25.1 Tremor, unspecified; Z91.14 Patient's other noncompliance with medication regimen; I16.0 Hypertensive urgency; E78.5 Hyperlipidemia, unspecified; Z79.51 Long term (current) use of inhaled steroids; Z79.52 Long term (current) use of systemic steroids; Z79.899 Other long term (current) drug therapy
CPT/HCPCS: 36415; 36600; 71045; 80048; 80320; 82803; 83605; 83735; 83930; 84100; 84484; 85025; 87040; 93005; 94002; 94003; 94640; 97802; 99285; J7030; A4216; G0480; J2405

== ENCOUNTER → 2018-01-30 08:55 | Outpatient (CLI) | payer MEDICARE, SELFPAY ==
[2018-01-30 09:36] VITALS: PULSE 107; PULSE 119; PULSE 122; PULSE 123; PULSE 124; PULSE 127; PULSE 99; O2SAT 85; O2SAT 87; O2SAT 92; O2SAT 93; O2SAT 94; O2SAT 96; O2SAT 97
--- NOTE | 2018-01-30 09:40 | CPS ---
Patient came in on own portable concentrator set at 3 lpm pulse dose. Patient was 94% on room air for start of the test. At the 1st minute patient was 90% on room air but then desaturated to 85% in the next 20 seconds. Stopped patient to recover and placed on his 3 lpm pulse dose O2. Patient recovered to 94%. Patient then dropped to 87% at the 4th minute and increased O2 to 4 lpm. Patient stated after testing that he usually walks with a walker or something to hold on to which he did not do today.
--- NOTE | 2018-01-31 06:43 | PCM.PSN.6M ---
PSN 6 Minute Walk Test - 6 Minute Walk Test 6 Minute Walk Test: 6 Minute Walk Test PSN:6-Minute Walk Test Start: 01/30/18 09:36 Freq: Status: Active Protocol: [id number].[id number] Document 01/30/18 09:36 JAXSON (Rec: 01/30/18 09:44 JAXSON [id number]) 6 Minute Walk Test Date Performed 01/30/18 Time Performed 09:00 Height 5 ft 6 in Weight: 58.967 kg Weight in Pounds 130.[address]: Lee Higuera Assistive device used: None Pre-test Oxygen Delivery Method Room Air Pulse Ox (%) 94 Pulse Rate (60-100 beats/min) 99 Dyspnea Milka Scale (0-10) 0 Exertion Milka Scale (6-20) 6 1st minute Oxygen Delivery Method Room Air Pulse Ox (%) 85 Pulse Rate (60-100 beats/min) 122 H 2nd minute Oxygen Flow Rate (L/min) (L/min) 3 Oxygen Delivery Method Nasal Cannula Pulse Ox (%) 96 Pulse Rate (60-100 beats/min) 123 H 3rd minute Oxygen Flow Rate (L/min) (L/min) 3 Oxygen Delivery Method Nasal Cannula Pulse Ox (%) 93 Pulse Rate (60-100 beats/min) 119 H 4th minute Oxygen Flow Rate (L/min) (L/min) 3 Oxygen Delivery Method Nasal Cannula Pulse Ox (%) 87 Pulse Rate (60-100 beats/min) 124 H 5th minute Oxygen Flow Rate (L/min) (L/min) 4 Oxygen Delivery Method Nasal Cannula Pulse Ox (%) 94 Pulse Rate (60-100 beats/min) 119 H 6th minute Oxygen Flow Rate (L/min) (L/min) 4 Oxygen Delivery Method Nasal Cannula Pulse Ox (%) 92 Pulse Rate (60-100 beats/min) 127 H Dyspnea Milka Scale (0-10) 3 Exertion Milka Scale (6-20) 12 Post-test Oxygen Flow Rate (L/min) (L/min) 4 Oxygen Delivery Method Nasal Cannula Pulse Ox (%) 97 Pulse Rate (60-100 beats/min) 107 H Full Laps Walked 18 Partial Lap, Number of Tiles Walked 53 Total Distance Walked (ft) 1115 01/30/18 09:40 Cardiopulmonary Services by Jazlyn Li Patient came in on own portable concentrator set at 3 lpm pulse dose. Patient was 94% on room air for start of the test. At the 1st minute patient was 90% on room air but then desaturated to 85% in the next 20 seconds. Stopped patient to recover and placed on his 3 lpm pulse dose O2. Patient recovered to 94%. Patient then dropped to 87% at the 4th minute and increased O2 to 4 lpm. Patient stated after testing that he usually walks with a walker or something to hold on to which he did not do today. Initialized on 01/30/18 09:40 - END OF NOTE - Interpretation Interpretation: Patient was noted to be 94% on room air at rest. However, patient desaturated to 85% in the second minute. Patient was placed on his 3 L pulse dose and improved to 94%. The patient required 4 L pulse dose to maintain appropriate saturations. The remainder of the walk. In total, patient tolerated ambulating 1115 feet over the course of 6 minutes and had significant tachycardia with a peak heart rate of 127 bpm. - Recommendations Recommendations: The patient requires no supplemental oxygen at rest, but should be using 4 L pulse dose with any ambulation.
== END ==
PROVIDERS: Family Provider Family Medicine; PCP Family Medicine; Referring Provider Internal Medicine Critical Care Medicine; Visit Provider Internal Medicine Critical Care Medicine
DX: J44.9 Chronic obstructive pulmonary disease, unspecified (principal)
CPT/HCPCS: 94618

== ENCOUNTER → 2018-02-26 13:16 | Outpatient (CLI) | payer MEDICARE, SELFPAY ==
[2017-10-25 09:32] VITALS: BMI 19.5
--- NOTE | 2018-02-26 16:35 | PFTCOMP_ITS ---
COMPLETE PULMONARY FUNCTION TEST INTERPRETATION Brief HPI: Patient is a 53 year old male, currently under the care of myself, who presents to [facility] for complete pulmonary function tests secondary to diagnosis of COPD. Respiratory therapist reports good effort and reproducible results. Interpretation: Forced expiration spirometry shows a very severe large airways obstructive ventilatory defect with an FEV1 of 34% predicted. There is a significant bronchodilator response in FVC by strict ATS criteria. Spirograms are of good quality and plateau slowly, indicating slowly emptying areas of the lungs. The respiratory flow volume loop shows decreased expiratory flow rates at all lung volumes consistent with airway obstruction. Lung volumes by body plethysmography show an elevated total lung capacity at 8.69 L, 255% predicted. FRC and RV are elevated out of proportion. Lung volume measurements are consistent with hyperinflation and air-trapping. Diffusion capacity by carbon monoxide is at the lower limit of normal at 66% predicted. The airway resistance is elevated. Compared to previous pulmonary function tests from 11/07/2016, there has been a significant improvement in FVC, FEV1 and TLC by 42%, 14% and 50% respectively. Impression: Partially reversible very severe large airways obstructive ventilatory defect resulting in air trapping and hyperinflation. There has been some improvement compared to previous study.
--- OUTSIDE RECORDS SUMMARY | 2018-04-14 17:38 | XMS RPT_ITS ---
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 as well as oxygen and BiPAP. He stabilized and improved and successfully weaned off of BiPAP onto oxygen by nasal cannula. He was on oxygen at his usual dose of 2-3 L. Patient was on alcohol withdrawal protocol with Ativan. However subsequently his CIWA scores increased and patient started having tremors and agitation. He was diagnosed with alcohol withdrawal symptoms and switched to alcohol withdrawal protocol with Librium. CIWA score ranged around 8-9. Patient was seen on day of discharge and looked much better. Tremors had resolved and patient wanted to go home. He was discharged home with a prescription for all his inhalers and a 5 day course of p.o. azithromycin 500 mg daily. He is to follow-up with his primary care doctor in 1 week. Patient seen and examined prior to discharge. He had no complaints and had a good night. He denied any fever or chills, any cough or chest pain, shortness of breath, abdominal pain, diarrhea vomiting. He was on 2 L of oxygen at time of review. o/e: Vital Signs Height 5 ft 6 in Weight: 126 lb 5.198 oz Weight in Pounds 126.3 lbs Pulse Ox 94 General: Alert, Oriented x3, Cooperative, No apparent distress HEENT: Atraumatic, PERRLA, EOMI, Normocephalic Oral: Moist Mucosa Neck: Supple, No JVD, Negative Carotid Bruits Lungs: Clear to auscultation, has mild wheezing in all lung roland. No crackles auscultated. Lungs sound mildly tight. Cardiovascular: Regular rate, Normal S1, Normal S2, Tachycardic Abdomen: Bowel Sounds Present, Soft, Non Tender, Non-Distended, No Hepato-splenomegaly Extremities: No clubbing, No cyanosis, No edema, Capillary Refill Less than 3 Seconds Skin: No rashes, No breakdown Musculoskeletal: No Tenderness to Palpation of Joints or Extremities Lymphatic: No Cervical, Supraclavicular, or Inguinal Adenopathy Neurological: Cranial nerves II-XII grossly intact, - - tremors of his upper extremities Psych/Mental Status: Normal Affect, Appropriate, Alert and oriented to time, place, person, mood and affect [] Home medications reviewed and reconciled. Plan as stated above. Discharge Diet: 2000 mg Sodium Diet Discharge Activity: Return to Normal Activity Weight Bearing Status: Weight bearing as tolerated Call your doctor if you observe: Shortness of breath Home Medications: Medications to take at Discharge Pravastatin Sodium [Pravachol] 20 mg PO QHS 03/23/16 Lisinopril [Zestril] 20 mg PO DAILY #30 tab 08/23/16 Aspirin [Aspirin, Baby] 81 mg PO DAILY@0800 10/16/17 Albuterol Aerosols [Ventolin Aerosols] 2.5 mg INHALATION Q4H PRN #30 ml 10/19/17 Albuterol Inhaler [Ventolin Hfa] 2 puff INHALATION Q4H PRN PRN #1 inhaler 10/19/17 Azithromycin 500 mg PO DAILY #5 tab 10/19/17 Budesonide 0.5 mg INHALATION Q12H #30 ampul.neb 10/19/17 Ipratropium/Albuterol Respimat [Combivent Respimat Inhal [place]] 1 puff INHALATION 4X/DAY #1 inhaler 10/19/17 Prednisone 40 mg PO DAILY 5 Days #10 tab 10/19/17 Following Prescrptions Were Given to Patient: Albuterol Inhaler [Ventolin Hfa] 2 puff INHALATION Q4H PRN PRN #1 inhaler PRN Reason: Shortness Of Breath Albuterol Aerosols [Ventolin Aerosols] 2.5 mg INHALATION Q4H PRN #30 ml PRN Reason: shortness of breath or wheezing Azithromycin 500 mg PO DAILY #5 tab Budesonide 0.5 mg INHALATION Q12H #30 ampul.neb Prednisone 40 mg PO DAILY 5 Days #10 tab Ipratropium/Albuterol Respimat [Combivent Respimat Inhal [place]] 1 puff INHALATION 4X/DAY #1 inhaler Primary Care Physician: Ketan Peralta MD [Primary Care Provider] - Please follow up with your Primary Care Physician in: one week Patient Instructions: What is COPD?, Using Oxygen Safely Disposition: Home Minutes spent on discharge:: 40 Patient Condition:: Stable Medical Necessity - Tobacco Use Smoking Status: Former smoker Meaningful Use Info Meaningful Use Diagnoses (Choose all that apply): None applicable Code Visit Inpatient E AND M: 60396 Disch Hosp 10/19/17 1635 <Electronically signed by Zuri Muñoz MD> Date Zuri Muñoz MD Cosigner Signature (if applicable): Date CC: Zuri Muñoz MD; Ketan Peralta MD Signed DISCHARGE INSTRUCTION Observed: 10/19/2017 Status: F Source: [place]AR[place] 9:50 AM [facility] REPOSITORY [facility] Medical Records Department [address] [place] [id number] Instructions for Home/Discharge Instructions 10/19/17 0948 MR#: [id number] Acct: [id number] Name: PALOMO IRWIN Rep #: [id number] : 1965 52 From: Zuri Muñoz MD PCP: Ketan Peralta MD Status: ADM IN - Discharge Diagnoses Current Active Problems: Current Active and Chronic Problems (Last Reviewed 04/11/17 @ 11:06 by Elisha Boss NP-C) Shortness of breath (Acute) You will use the following diet at home:: Cardiac Your food should be the consistency of: Regular Your liquids should be the consistency of: Regular/Thin Discharge Activity: Return to Normal Activity Weight Bearing Status: Weight bearing as tolerated Call your doctor if you observe: Shortness of breath Instructions: What is COPD?, Using Oxygen Safely Allergies/Adverse Reactions: Allergies No Known Allergies Allergy (Verified 10/16/17 15:49) Medications to take at Discharge Pravastatin Sodium [Pravachol] 20 mg PO QHS 03/23/16 Lisinopril [Zestril] 20 mg PO DAILY #30 tab 08/23/16 Aspirin [Aspirin, Baby] 81 mg PO DAILY@0800 10/16/17 Albuterol Aerosols [Ventolin Aerosols] 2.5 mg INHALATION Q4H PRN #30 ml 10/19/17 Albuterol Inhaler [Ventolin Hfa] 2 puff INHALATION Q4H PRN PRN #1 inhaler 10/19/17 Azithromycin 500 mg PO DAILY #5 tab 10/19/17 Budesonide 0.5 mg INHALATION Q12H #30 ampul.neb 10/19/17 Ipratropium/Albuterol Respimat [Combivent Respimat Inhal [place]] 1 puff INHALATION 4X/DAY #1 inhaler 10/19/17 Prednisone 40 mg PO DAILY 5 Days #10 tab 10/19/17 The following prescriptions were given: Albuterol Inhaler [Ventolin Hfa] 2 puff INHALATION Q4H PRN PRN #1 inhaler PRN Reason: Shortness Of Breath Albuterol Aerosols [Ventolin Aerosols] 2.5 mg INHALATION Q4H PRN #30 ml PRN Reason: shortness of breath or wheezing Azithromycin 500 mg PO DAILY #5 tab Budesonide 0.5 mg INHALATION Q12H #30 ampul.neb Prednisone 40 mg PO DAILY 5 Days #10 tab Ipratropium/Albuterol Respimat [Combivent Respimat Inhal [place]] 1 puff INHALATION 4X/DAY #1 inhaler Primary Care Physician: Ketan Peralta MD [Primary Care Provider] - Please follow up with your Primary Care Physician in: one week Test Results: Test results from this visit will be discussed in further detail at your follow-up appointment, if applicable. Proposed Discharge Date: 10/19/17 10/19/17 0950 <Electronically signed by Zuri Muñoz MD> Date Zuri Muñoz MD CC: Ketan Peralta MD CBC W/DIFF, AUTOMATED Collected: 10/19/2017 Status: F Source: [place] 6:25 AM [facility] REPOSITORY TYPE CODE TESTS RESULT OUT OF RANGE REFERENCE UNITS LAB L100.1000 4.4-11.0 K/mm3 High WBC 11.8 LAB L100.1200 4.6-6.2 M/mm3 Low RBC 3.85 LAB L100.1300 13.0-16.5 g/dl Low HGB 12.1 LAB L100.1400 40-54 % Low HCT 36.9 LAB L100.1500 80-94 fL High MCV 95.8 LAB L100.1600 27.0-32.0 pg Normal MCH 31.4 LAB L100.1700 32-36 g/gl Normal MCHC 32.8 LAB L100.1810 11.6-14.6 % Normal RDW CV 13.5 LAB L100.1820 35.1-43.9 fl High RDW SD 45.7 LAB L100.1900 150-450 K/mm3 Normal PLT 279 LAB L100.2000 6.2-12.0 fl Normal MPV 8.2 LAB L100.2100 47-70 % High NEUT% 89.6 LAB L100.2200 19-41 % Low LY% 4.9 LAB L100.2300 0-10 % Normal MONO% 5.3 LAB L100.2400 0-5 % Normal EO% 0.0 LAB L100.2500 0-1 % Normal BASO% 0.0 LAB L100.2550 0.0-0.9 % Normal IM GRAN % 0.200 Result Comment: IG% - Immature Granulocytes (promyelocytes, myelocytes and metamyelocytes) > 1% indicates that a LEFT SHIFT is Present. LAB L100.2620 2.0-7.7 X10 3/uL High Absolute Neut 10.6 LAB L100.2720 0.83-4.51 X10 3/ul Low Absolute Lymph 0.58 Performed By: #### L100.0100 #### [facility] [address] [place], [address] BASIC METABOLIC Collected: 10/19/2017 Status: F Source: [place] PROFILE (BMP) 6:25 AM [facility] REPOSITORY TYPE CODE TESTS RESULT OUT OF RANGE REFERENCE UNITS LAB L501.0100 74-106 mg/dL High GLU 133 Result Comment: Fasting Glucose result greater than or equal to 126 mg/dL suggests DIABETES MELLITUS per A.D.A. criteria. Please note revised GLUCOSE reference range effective 2017. LAB L501.1000 7-18 mg/dL Normal BUN 14 LAB L501.1100 0.70-1.30 mg/dL Low CREAT,SERUM 0.65 Result Comment: The validity of the calculated GFR AND GFRAA in patients over 70 years has not been determined. Clinical correlation is essential. LAB L501.1110 >60 mL/min Normal EST GFR 137 Result Comment: Non- GFR Calc LAB L501.1115 >60 mL/min Normal EST GFR - AA 165 Result Comment: GFR Calc LAB L501.1255 ml/min Normal Estimated CRCL 106.52 LAB L501.1300 10-20 RATIO High BUN/CRE 21.6 LAB L501.2200 8.5-10 mg/dL .1 CA Normal 8.6 LAB L501.5300 136-14 mmol/L Low 5 NA 134 LAB L501.5600 3.5-5. mmol/L 1 K Normal 4.5 LAB L501.5900 98-107 mmol/L Low CL 92 LAB L501.6100 21.0-3 mmol/L High 2.0 CO2 36.0 LAB L501.6200 5-15 GAP Normal 6 Performed By: #### L500.2500, L501.5200 #### [facility] [address] [place], [address] MAGNESIUM Collected: 10/19/2017 Status: F Source: [place] 6:25 AM [facility] REPOSITORY TYPE CODE TESTS RESULT OUT OF RANGE REFERENCE UNITS LAB L501.5200 1.6-2.6 mg/dL Normal MG 2.5 Performed By: #### L500.2500, L501.5200 #### [facility] [address] [place], [address] 12 LEAD ELECTROCARDIOGRAM Observed: 10/18/2017 Status: F Source: [place] 11:48 AM [facility] REPOSITORY [facility] Cardiovascular Services [address] [address] 12 Lead EKG 10/16/17 1637 MR#: [id number] Acct: [id number] Name: PALOMO IRWIN Rep #: [id number] : 1965 52 From: Jomar Santiago MD Attending Dr: Zuri Muñoz MD Status: ADM IN Ordering Dr: Chas Wilcox MD Date: 10/16/17 Location: [facility] Sex: M C Admitted: 10/16/17 Test Reason : SOB Blood Pressure : / mmHG Vent. Rate : 125 BPM Atrial Rate : 125 BPM P-R Int : 100 ms QRS Dur : 070 ms QT Int : 292 ms P-R-T Axes : 074 040 055 degrees QTc Int : 421 ms Sinus tachycardia with short AR Low voltage QRS (limb leads) Confirmed by PAMELA PHAM, JOMAR ([id number]), staff editor LAKSHMI GARCIA ([id number]) on 10/18/2017 11:47:50 AM Referred By: CHNYA Confirmed By:JOMAR SANTIAGO MD 10/18/17 1147 Date Jomar Santiago MD CC: Zuri Muñoz MD; Chas Wilcox MD; Ketan Peralta MD Signed BASIC METABOLIC Collected: 10/18/2017 Status: F Source: [place] PROFILE (BMP) 7:40 AM [facility] REPOSITORY TYPE CODE TESTS RESULT OUT OF RANGE REFERENCE UNITS LAB L501.0100 74-106 mg/dL High GLU 123 Result Comment: Fasting Glucose result from 100 to 125 mg/dL suggests IMPAIRED HOMEOSTASIS per A.D.A. criteria. Please note revised GLUCOSE reference range effective 2017. LAB L501.1000 7-18 mg/dL Normal BUN 14 LAB L501.1100 0.70-1.30 mg/dL Low CREAT,SERUM 0.59 Result Comment: The validity of the calculated GFR AND GFRAA in patients over 70 years has not been determined. Clinical correlation is essential. LAB L501.1110 >60 mL/min Normal EST GFR 152 Result Comment: Non- GFR Calc LAB L501.1115 >60 mL/min Normal EST GFR - AA 184 Result Comment: GFR Calc LAB L501.1255 ml/min Normal Estimated CRCL 117.35 LAB L501.1300 10-20 RATIO High BUN/CRE 23.7 LAB L501.2200 8.5-10 mg/dL .1 CA Normal 8.7 LAB L501.5300 136-14 mmol/L Low 5 NA 130 LAB L501.5600 3.5-5. mmol/L 1 K Normal 4.7 LAB L501.5900 98-107 mmol/L Low CL 89 LAB L501.6100 21.0-3 mmol/L 2.0 CO2 Normal 31.0 LAB L501.6200 5-15 GAP Normal 10 Performed By: #### L500.2500 #### [facility] [address] [place], [address] CBC W/DIFF, AUTOMATED Collected: 10/18/2017 Status: F Source: [place] 7:40 AM [facility] REPOSITORY TYPE CODE TESTS RESULT OUT OF RANGE REFERENCE UNITS LAB L100.1000 4.4-11.0 K/mm3 High WBC 12.1 LAB L100.1200 4.6-6.2 M/mm3 Low RBC 3.69 LAB L100.1300 13.0-16.5 g/dl Low HGB 11.7 LAB L100.1400 40-54 % Low HCT 34.8 LAB L100.1500 80-94 fL High MCV 94.3 LAB L100.1600 27.0-32.0 pg Normal MCH 31.7 LAB L100.1700 32-36 g/gl Normal MCHC 33.6 LAB L100.1810 11.6-14.6 % Normal RDW CV 13.4 LAB L100.1820 35.1-43.9 fl High RDW SD 44.5 LAB L100.1900 150-450 K/mm3 Normal PLT 286 LAB L100.2000 6.2-12.0 fl Normal MPV 8.6 LAB L100.2100 47-70 % High NEUT% 94.5 LAB L100.2200 19-41 % Low LY% 2.6 LAB L100.2300 0-10 % Normal MONO% 2.7 LAB L100.2400 0-5 % Normal EO% 0.0 LAB L100.2500 0-1 % Normal BASO% 0.0 LAB L100.2550 0.0-0.9 % Normal IM GRAN % 0.200 Result Comment: IG% - Immature Granulocytes (promyelocytes, myelocytes and metamyelocytes) > 1% indicates that a LEFT SHIFT is Present. LAB L100.2620 2.0-7.7 X10 3/uL High Absolute Neut 11.5 LAB L100.2720 0.83-4.51 X10 3/ul Low Absolute Lymph 0.32 LAB L100.4500 Normal SMEAR COMMENT COMMENT Result Comment: SLIDE SCANNED - LYMPHOPENIA NOTED. Performed By: #### L100.0100 #### [facility] [address] [facility], [address] OSMOLALITY, SERUM Collected: 10/17/2017 Status: F Source: [place] 2:02 PM [facility] REPOSITORY Order Comment: LATE DRAW DO TO [employer] BEING DOWN AND ORDER DID NOT CROSS OVER TILL A LATER TIME. TYPE CODE TESTS RESULT OUT OF RANGE REFERENCE UNITS LAB L501.7300 275-295 mOsm/KG Low 267 OSMOLALITY,S ER Performed By: #### L501.7300 #### [facility] [address] [facility], [address] BASIC METABOLIC Collected: 10/17/2017 Status: F Source: [place] PROFILE (BMP) 5:20 AM [facility] REPOSITORY TYPE CODE TESTS RESULT OUT OF RANGE REFERENCE UNITS LAB L501.0100 74-106 mg/dL High GLU 138 Result Comment: Fasting Glucose result greater than or equal to 126 mg/dL suggests DIABETES MELLITUS per A.D.A. criteria. Please note revised GLUCOSE reference range effective 2017. LAB L501.1000 7-18 mg/dL Normal BUN 7 LAB L501.1100 0.70-1.30 mg/dL Low CREAT,SERUM 0.62 Result Comment: The validity of the calculated GFR AND GFRAA in patients over 70 years has not been determined. Clinical correlation is essential. LAB L501.1110 >60 mL/min Normal EST GFR 145 Result Comment: Non- GFR Calc LAB L501.1115 >60 mL/min Normal EST GFR - AA 175 Result Comment: GFR Calc LAB L501.1255 ml/min Normal Estimated CRCL 111.67 LAB L501.1300 10-20 RATIO BUN/CRE Normal 11.3 LAB L501.2200 8.5-10 mg/dL .1 CA Normal 8.6 LAB L501.5300 136-14 mmol/L Low 5 NA 127 LAB L501.5600 3.5-5. mmol/L 1 K Normal 4.7 LAB L501.5900 98-107 mmol/L Low CL 86 LAB L501.6100 21.0-3 mmol/L 2.0 CO2 Normal 30.0 LAB L501.6200 5-15 GAP Normal 11 Performed By: #### L500.2500, L100.0100 #### [facility] [address] [place], [address] CBC W/DIFF, AUTOMATED Collected: 10/17/2017 Status: F Source: [place]AR[place] 5:20 AM [facility] REPOSITORY TYPE CODE TESTS RESULT OUT OF RANGE REFERENCE UNITS LAB L100.1000 4.4-11.0 K/mm3 Normal WBC 4.4 LAB L100.1200 4.6-6.2 M/mm3 Low RBC 3.81 LAB L100.1300 13.0-16.5 g/dl Low HGB 11.9 LAB L100.1400 40-54 % Low HCT 35.4 LAB L100.1500 80-94 fL Normal MCV 92.9 LAB L100.1600 27.0-32.0 pg Normal MCH 31.2 LAB L100.1700 32-36 g/gl Normal MCHC 33.6 LAB L100.1810 11.6-14.6 % Normal RDW CV 13.2 LAB L100.1820 35.1-43.9 fl Normal RDW SD 43.5 LAB L100.1900 150-450 K/mm3 Normal PLT 291 LAB L100.2000 6.2-12.0 fl Normal MPV 8.4 LAB L100.2100 47-70 % High NEUT% 92.5 LAB L100.2200 19-41 % Low LY% 6.6 LAB L100.2300 0-10 % Normal MONO% 0.7 LAB L100.2400 0-5 % Normal EO% 0.0 LAB L100.2500 0-1 % Normal BASO% 0.0 LAB L100.2550 0.0-0.9 % Normal IM GRAN % 0.200 Result Comment: IG% - Immature Granulocytes (promyelocytes, myelocytes and metamyelocytes) > 1% indicates that a LEFT SHIFT is Present. LAB L100.2620 2.0-7.7 X10 3/uL Normal Absolute Neut 4.1 LAB L100.2720 0.83-4.51 X10 3/ul Low Absolute Lymph 0.29 Performed By: #### L500.2500, L100.0100 #### [facility] [address] [facility], [address] EMERGENCY DEPARTMENT Observed: 10/17/2017 Status: F Source: [place]AR[place] SUMMARY 1:46 AM [facility] REPOSITORY [facility] Medical Records Department [address] [place] [address] Emergency Department Summary 10/16/17 1657 MR#: [id number] Acct: [id number] Name: PALOMO IRWIN Rep #: [id number] : 1965 52 From: Chas Wilcox MD PCP: Ketan Peralta MD Status: ADM IN - ER Visit Summary Date of Service: 10/16/17 Chief Complaint: Shortness of breath History of Present Illness: The patient is a [address] Higuera and Dr. Peralta. He has a history of COPD and is on 2 L of home O2. Reports she has shortness of breath began yesterday and is gradually worsened. It is now severe. He reports she has had a cough productive white sputum for the past 2 days. Said subjective fever. He reports that he has a continuous left-sided chest pressure that began 2 days ago. Is 5 out of 10 currently and 8 out of 10 at worst. Patient also reports that he has mild abdominal pain and was nauseated and vomited last night. No blood in his emesis. He does drink 3-4 beers a day. He has had 3 beers today. Complains of generalized weakness as well. Physical Examination: Vitals: 98.8, 210/110, 118, 23, 99% on a nonrebreather. General: Well-developed, but cachectic. Head: Normocephalic atraumatic. Neck: Supple, no lymphadenopathy. No JVD. Nontender. Cardiovascular: Tachycardic regular rhythm. No murmurs. Respiratory: Moderate respiratory distress. Mild wheezing bilaterally with greatly decreased air movement. Abdominal: Soft, nontender, nondistended, normal bowel sounds. No guarding, rebound, or peritoneal signs. Back: Nontender. Extremities: Nontender, no edema. Skin: Normal color, no rash. Neurologic: Alert and oriented 3. Cranial nerves II through XII are intact. Normal strength and sensation. Psych: Normal affect. Test Results: EKG is sinus tachycardia 125 with a short AR interval of [address] changes. Troponin is negative. Lactic acid is 1.9. Chem- 7 is more for sodium 121, chloride of 83, BUN 3, creatinine 0.56, glucose 113. CBC is more for an H AND H of 12.9 38.8, 7 neutrophils 85, and leukocytes of 9. Chest x-ray shows severe emphysematous changes, but no pneumothorax or pneumonia. Emergency Department Course and Treatment: Patient was treated with 4 albuterol and Atrovent aerosol. He was placed on BiPAP. He was given Solu-Medrol, morphine, and Zofran IV. He is resting more comfortably. However, he still has very poor air movement. Treatment Plan: Patient will be admitted to the hospital for further evaluation and treatment. Disposition: Admitted in improved condition. Impression: 1. Acute on chronic respiratory failure on BiPAP. 2. COPD exacerbation. 3. Hyponatremia. 4. Critical care time 30 minutes. This note was generated with [employer] dictation software. It may contain incorrect words, spelling, and punctuation that were not noted in review of the chart prior to signing ED Disposition - Plan for ED Patient: Chief Complaint: Shortness of Breath Referrals: Ketan Peralta MD [Primary Care Provider] - What to do if you have Problems For any increased pain, shortness of breath, bleeding, nausea or vomiting, chest pain, or any unexpected problems, contact your Primary Care Provider. Call [facility] ([phone]) or report to the closest Emergency Room. Call 911 if necessary. 10/17/17 0146 <Electronically signed by Chas Wilcox MD> Date Chas Wilcox MD Cosigner Signature (If Indicated): Date CC: Ketan Peralta MD HISTORY AND PHYSICAL Observed: 10/16/2017 Status: F Source: [place]AR[place] EXAM 6:34 PM [facility] REPOSITORY [facility] Medical Records Department [address] [address] History and Physical 10/16/17 1811 MR#: [id number] Acct: [id number] Name: PALOMO IRWIN Rep #: [id number] : 1965 52 From: Zuri Muñoz MD PCP: Ketan Peralta MD Status: ADM IN Location: [place] [id number] Problem List (1) Shortness of breath Status: Acute History of Present Illness Date of Admission: 10/16/17 Chief Complaint: Shortness of breath The patient is a 52 year old M with a history of COPD on 2 L of home oxygen, hypertension, hyperlipidemia and alcohol abuse. He was admitted by the ED on 10/16/2017 with a complaint of shortness of breath for 2 days prior to admission. Patient states he had not been using his inhalers for the past few days. Shortness of breath started and worsened over the 2 days prior to admission with associated cough productive of clear sputum. He had a subjective fever but denied any chills and had pleuritic chest pain as well. Also had assisted nausea and vomited once last night. He drinks about 3-4 beers daily and his last drink was today when he drank 3 beers. In the ED vitals showed temperature of 98.8, blood pressure of 210/110, respiratory rate of 118, respiratory rate of 23 he was breathing 99% on a nonrebreather mask. EKG done shows sinus tachycardia with a heart rate of 125 and a shortened AR, troponin was negative and lactic acid was 1.9. BMP was significant for sodium of 121 and CBC showed hemoglobin of 8.7 with white cell count of around 9. Chest x-ray done showed severe emphysematous changes but no pneumothorax or pneumonia. Was given albuterol and Atrovent in the ED and put on BiPAP and also given Solu-Medrol. Patient became more comfortable on BiPAP. He has been admitted to be managed for COPD exacerbation. [] Past Medical History Past Medical History (Chronic Problems): Chronic Problems (Last Reviewed 04/11/17 @ 11:06 by MOE Dixon) Stage 4 very severe COPD by GOLD classification (Chronic) Alcohol abuse (Chronic) Chronic respiratory failure (Chronic) Hyperlipidemia (Chronic) Hypertension (Chronic) COPD (chronic obstructive pulmonary disease) (Chronic) Medical History: Medical History (Last Reviewed 04/11/17 @ 11:06 by MOE Dixon) Acute and chronic respiratory failure with hypercapnia (Acute) J96.22 Alcohol abuse (Chronic) F10.10 Chronic respiratory failure (Chronic) J96.10 Hyperlipidemia (Chronic) E78.5 COPD exacerbation (Acute) J44.1 Hypertension (Chronic) I10 COPD (chronic obstructive pulmonary disease) (Chronic) J44.9 Allergies No Known Allergies Allergy (Verified 10/16/17 15:49) Home Medications: Ambulatory Orders Medication Instructions Recorded Surgical History: Surgical History (Last Reviewed 04/11/17 @ 11:07 by MOE Dixon) H/O chest tube placement (Resolved) Z98.890 Surgical History: no surgical history Psychiatric History: No pertinent psych hx Lives: Spouse/ Significant Other Smoking Status: Former smoker - *Family History Maternal Family History: Family History (Last Reviewed 04/11/17 @ 11:07 by MOE Dixon) Mother COPD (chronic obstructive pulmonary disease) Aunt COPD (chronic obstructive pulmonary disease) Father Cancer COPD (chronic obstructive pulmonary disease) Pneumonia History Items: Unknown Paternal Family History: Family History (Last Reviewed 04/11/17 @ 11:07 by MOE Dixon) Mother COPD (chronic obstructive pulmonary disease) Aunt COPD (chronic obstructive pulmonary disease) Father Cancer COPD (chronic obstructive pulmonary disease) Pneumonia History Items: No pertinent history Review of Systems Constitutional: Reports: Fever, Malaise. Denies: Chills, Weight Change HEENT: Denies: Head Aches, Sinus Congestion, Sinus Drainage Cardiovascular: Reports: Palpitations, - - Pleuritic chest pain. Denies: Chest Pressure, Chest Tightness, Heaviness, Light Headedness, Orthopnea, Paroxysmal Noc. Dyspnea Respiratory: Reports: Cough, Pleuritic Pain, Shortness of Breath, Shortness of breath at rest, Sputum production - Clear sputum, Wheezing Gastrointestinal: Reports: Nausea, Vomiting. Denies: Abdominal Pain Genitourinary: Denies: Dysuria Musculoskeletal: Denies: Joint Pain, Joint Tenderness Skin: Denies: Rash, Wounds Neurological: Denies: Numbness, Tingling, Focal weakness Psychiatric: Denies: Anxiety, Depression, Homicidal Ideations, Suicidal Ideations Hematologic/ Lymphatic: Denies: Easy Bruising, Easy Bleeding VTE Information - Inpt Only VTE Present on Admission: No VTE Mechan Device Prophylaxis: None VTE Pharm Prophylaxis ordered?: Yes Patient Problems: Active and Suspected Problems (Last Reviewed 04/11/17 @ 11:06 by Elisha Boss, CARDING UTILITY TENDER-C) Shortness of breath (Acute) - Physical Exam General: Alert, Oriented x3, Cooperative, - - Patient on BiPAP. Moderate respiratory distress. HEENT: Atraumatic, PERRLA, EOMI, Normocephalic Oral: Moist Mucosa Neck: Supple, No JVD, Negative Carotid Bruits Lungs: Short of Breath, Tachypneic, Using Accessory Muscles, - - Increased anterior posterior diameter. Using accessory muscles of respiration. Has wheezing in all lung roland with breath sounds mildly diminished in all lung roland. Cardiovascular: Regular Rhythm, Normal S1, Normal S2, Tachycardic Abdomen: Bowel Sounds Present, Soft, Non Tender Extremities: No clubbing, No cyanosis, No edema, Capillary Refill Less than 3 Seconds Skin: No rashes, No breakdown Musculoskeletal: No Tenderness to Palpation of Joints or Extremities Lymphatic: No Cervical, Supraclavicular, or Inguinal Adenopathy Neurological: Cranial nerves II-XII grossly intact, Motor Exam 5/5 strength throughout Psych/Mental Status: Normal Affect, Appropriate, Alert and oriented to time, place, person, mood and affect Vital Signs Temp Pulse Resp BP Pulse Ox 98.8 F 109 H 18 147/108 H 96 10/16/17 15:52 10/16/17 17:35 10/16/17 17:35 10/16/17 17:35 10/16/17 17:35 Impressions Chest X-Ray 10/16/17 15:59 IMPRESSION: Normal x-ray examination of the chest. Healed left rib fracture. Electronically Signed: Otoniel Tapia MD at 16:17 EDT , Service support , 10/16/17 15:59 Chest 1 View (Portable) [RAD] Stat Laboratory Results WBC (4.4-11.0) K/mm3 Assessment/Plan All Active Problems (Last Reviewed 04/11/17 @ 11:06 by Elsiha Boss NP-C) Shortness of breath (Acute) H/O chest tube placement (Resolved) Acute and chronic respiratory failure with hypercapnia (Acute) COPD exacerbation (Acute) 1. Acute on chronic hypoxic and hypercapnic respiratory failure due to COPD exacerbation' * patient came in acutely SOB. was on nonrebreather mask, but now o n BIPAP and tolerating it well * ABG showed Ph of 7.33, pCO2 of 57.6, pO2 of 180 * will admit to PCU with telemetry * continue BIPAP * IV solumedrol 40mg q8. * breathing treatments with duoneb inhalers * 2. COPD exacerbation due to noncompliance with inhalers * has increased A-P diameter * imaging showed hyperinflation of lungs consistent with COPD. * IV solumedrol as mentioned above * BIPAP as mentioned above * breathing treatments with duonebs * 3. Hypertension urgency * The patient was in the 200s systolic on admission but this is likely due to COPD exacerbation. * 147/108 at time of review. * On lisinopril. Will continue. * 4. Hyperlipidemia: on pravastatin. Code Status: Full code. Patient is okay with intubation if needed. This note was generated with [employer] dictation software. It may contain incorrect words, spelling, and punctuation that were not noted in checking the note before signing. Code Visit Inpatient E AND M: 20322 Init Hosp L3 10/16/17 5144 <Electronically signed by Zuri Muñoz MD> Date Zuri Muñoz MD Cosign Signature: Date (if applicable) CC: Zuri Muñoz MD; Ketan Peralta MD Signed BLOOD GASES BY CPS Collected: 10/16/2017 Status: F Source: [place] 4:56 PM [facility] REPOSITORY TYPE CODE TESTS RESULT OUT OF RANGE REFERENCE UNITS LAB L9000.9990 Normal BLD GAS TYPE ART LAB L9001.1000 Normal SITE R Radial LAB L9001.1010 Normal DEVEN TEST POS LAB L9001.1050 O2 Normal Delivery Dev Bi / C PAP LAB L9001.1070 RR Normal 12 LAB L9001.1074 Normal FI02 50 LAB L9001.1088 Normal IPAP 14 LAB L9001.1090 Normal EPAP 7 LAB L9001.1104 Normal Results To ED LAB L9001.1105 Normal Time Given 1658 LAB L9001.1110 7.35-7.45 Low pH - I-STAT 7.33 LAB L9001.1210 35-45 mmHg High pCO2 - ISTAT 57.6 LAB L9001.1310 75-100 mmHG High PO2 I-STAT 180 LAB L9001.2300 22-26 mmol/L High HCO3 ISTAT 30.6 LAB L9001.2400 -2 to +2 mmol/L High BE ISTAT 5 LAB L9001.2415 mmol/L Normal TOTAL CO2 32 ISTAT LAB L9001.2425 95-99 % Normal SO2 ISTAT 99 Performed By: #### L9000.0800 #### [facility] Point of Care [address] [place], [place] [id number] ALCOHOL, BLOOD Collected: 10/16/2017 Status: F Source: [place] (MEDICAL)-SERUM 4:44 PM [facility] REPOSITORY TYPE CODE TESTS RESULT OUT OF RANGE REFERENCE UNITS LAB L501.9100 mg/dL Normal SERUM 5.0 ETOH Result Comment: The serum:whole blood ethanol ratio is approximately 1.14 and varies slightly with hematocrit. Medical Alcohol reference interval and critical value in non-tolerant individuals; 50 - 100 Impairment 100 Intoxication 100 - 250 Severe Poisoning 250 - 400 Deep/possible fatal coma Performed By: #### L501.9100 #### [facility] [address] [place], [address] Observed: 10/16/2017 Status: F Source: [place] CULTURE, BLOOD (WB) 4:34 PM [facility] REPOSITORY BC No growth in 5 days. Performed By: #### M200.1000 #### [facility] [address] [place], [address] CBC W/DIFF, AUTOMATED Collected: 10/16/2017 Status: F Source: [place] 4:00 PM [facility] REPOSITORY TYPE CODE TESTS RESULT OUT OF RANGE REFERENCE UNITS LAB L100.1000 4.4-11.0 K/mm3 Normal WBC 10.6 LAB L100.1200 4.6-6.2 M/mm3 Low RBC 4.17 LAB L100.1300 13.0-16.5 g/dl Low HGB 12.9 LAB L100.1400 40-54 % Low HCT 38.8 LAB L100.1500 80-94 fL Normal MCV 93.0 LAB L100.1600 27.0-32.0 pg Normal MCH 30.9 LAB L100.1700 32-36 g/gl Normal MCHC 33.2 LAB L100.1810 11.6-14.6 % Normal RDW CV 13.7 LAB L100.1820 35.1-43.9 fl High RDW SD 46.5 LAB L100.1900 150-450 K/mm3 Normal PLT 293 LAB L100.2000 6.2-12.0 fl Normal MPV 8.2 LAB L100.2100 47-70 % High NEUT% 84.6 LAB L100.2200 19-41 % Low LY% 8.6 LAB L100.2300 0-10 % Normal MONO% 6.0 LAB L100.2400 0-5 % Normal EO% 0.4 LAB L100.2500 0-1 % Normal BASO% 0.2 LAB L100.2550 0.0-0.9 % Normal IM GRAN % 0.200 Result Comment: IG% - Immature Granulocytes (promyelocytes, myelocytes and metamyelocytes) > 1% indicates that a LEFT SHIFT is Present. LAB L100.2620 2.0-7.7 X10 3/uL High Absolute Neut 8.9 LAB L100.2720 0.83-4.51 X10 3/ul Normal Absolute Lymph 0.91 Performed By: #### L100.0100 #### [facility] [address] [facility], [address] LACTIC ACID Collected: 10/16/2017 Status: F Source: [place] 4:00 PM [facility] REPOSITORY Order Comment: Yes/No query for Sepsis Lactate Rule Y TYPE CODE TESTS RESULT OUT OF RANGE REFERENCE UNITS LAB L503.6005 0.4-2.0 mmol/L Normal LACTIC ACID 1.9 Performed By: #### L503.6005 #### [facility] [address] [facility], [address] BASIC METABOLIC Collected: 10/16/2017 Status: F Source: [place] PROFILE (BMP) 4:00 PM [facility] REPOSITORY TYPE CODE TESTS RESULT OUT OF RANGE REFERENCE UNITS LAB L501.0100 74-106 mg/dL High GLU 113 Result Comment: Fasting Glucose result from 100 to 125 mg/dL suggests IMPAIRED HOMEOSTASIS per A.D.A. criteria. Please note revised GLUCOSE reference range effective 2017. LAB L501.1000 7-18 mg/dL Low BUN 3 LAB L501.1100 0.70-1.30 mg/dL Low CREAT,SERUM 0.56 Result Comment: The validity of the calculated GFR AND GFRAA in patients over 70 years has not been determined. Clinical correlation is essential. LAB L501.1110 >60 mL/min Normal EST GFR 162 Result Comment: Non- GFR Calc LAB L501.1115 >60 mL/min Normal EST GFR - AA 197 Result Comment: GFR Calc LAB L501.1255 ml/min Normal Estimated CRCL 127.09 LAB L501.1300 10-20 RATIO Low BUN/CRE 5.4 LAB L501.2200 8.5-10 mg/dL .1 CA Normal 9.0 LAB L501.5300 136-14 mmol/L Low 5 NA 121 LAB L501.5600 3.5-5. mmol/L 1 K Normal 4.6 LAB L501.5900 98-107 mmol/L Low CL 83 LAB L501.6100 21.0-3 mmol/L 2.0 CO2 Normal 32.0 LAB L501.6200 5-15 GAP Normal 6 Performed By: #### L500.2500, L501.4010 #### [facility] [address] [place], [address] TROPONIN-I Collected: 10/16/2017 Status: F Source: [place] 4:00 PM [facility] REPOSITORY TYPE CODE TESTS RESULT OUT OF RANGE REFERENCE UNITS LAB L501.4010 <0.045 ng/mL Normal < 0.015 TROPONIN-I Result Comment: TROPONIN-I EXPECTED VALUES <0.045 Negative 0.045 - 0.590 Consistent with Cardiac Damage > OR = 0.600 Critical Value Not every elevated troponin is indicative of CA. These values should be used with clinical judgement in examining the patient's clinical picture for diagnosis. To establish a diagnosis of CA versus myocardial injury, there must be a demonstrated rise and/or fall in the troponin values, in addition to ischemic symptoms, EKG changes, new regional wall motion abnormality, and/or angiographical evidence. PLEASE NOTE: REFERENCE RANGES EDITED 17 Performed By: #### L500.2500, L501.4010 #### [facility] [address] [facility], [address] PHOSPHORUS Collected: 10/16/2017 Status: F Source: [place] 4:00 PM [facility] REPOSITORY TYPE CODE TESTS RESULT OUT OF RANGE REFERENCE UNITS LAB L501.2300 2.5-4.9 mg/dL Normal PHOS 2.6 Performed By: #### L501.2300, L501.5200 #### [facility] [address] [facility], [address] MAGNESIUM Collected: 10/16/2017 Status: F Source: [place] 4:00 PM [facility] REPOSITORY TYPE CODE TESTS RESULT OUT OF RANGE REFERENCE UNITS LAB L501.5200 1.6-2.6 mg/dL Normal MG 1.8 Performed By: #### L501.2300, L501.5200 #### [facility] [address] [place], [address] Observed: 10/16/2017 Status: F Source: [place] CULTURE, BLOOD (WB) 4:00 PM [facility] REPOSITORY BC No growth in 5 days. Performed By: #### M200.1000 #### [facility] [address] [place], [address] CHEST 1 VIEW Observed: 10/16/2017 Status: F Source: [place] (PORTABLE) 3:59 PM [facility] REPOSITORY [facility] Imaging Services [address] [place] [address] Chest 1 View (Portable) MR#: [id number] Acct: [id number] Name: PALOMO IRWIN Rep #: [id number] : 1965 M 52 From: Otoniel Tapia MD PCP: Ketan Peralta MD Status: PRE ER Study: Chest 1 View (Portable) Date of Exam: 10/16/17 Exam# [id number] Ordering Dr: Chas Wilcox MD STUDY: X-RAY CHEST REASON FOR EXAM: Male, 52 years old. SOB/DYSPNEA; COPD/EMPHYSEMA TECHNIQUE: Single AP portable view of the chest. COMPARISON: 6.2. FINDINGS: There is hyperinflation of the lungs consistent with chronic obstructive lung disease (COPD). There is no demonstrated pleural abnormality. Normal size heart. Normal mediastinum and kathleen. Normal visualized pulmonary arteries. Normal visualized aortic arch and descending thoracic aorta. Normal visualized thoracic spine. Healed left rib fracture. There is no demonstrated abnormality of the visualized soft tissue structures of the upper abdomen. RAD/Chest 1 View (Portable) IMPRESSION: Normal x-ray examination of the chest. Healed left rib fracture. Electronically Signed: Otoniel Tapia MD at 16:17 EDT , Service support , CC: Chas Wilcox MD; Ketan Peralta MD Test Engine Operator: Signed CNCO Observed: 05/30/2017 Status: COMPLETED Source: [place] 12:00 AM [facility] REPOSITORY Letter Text Lung Transplant Program/A100 Office: [facility]/[phone] , ext: [phone] Web: [email or web address] May 30, 2017 Palomo Irwin [address] [place] [phone] Dear Palomo Irwin, As a follow up to your physician?s referral, we have made several attempts to contact you regarding lung transplant. If you would like to be considered for an evaluation, please contact us at [phone] at your earliest convenience. Respectfully yours, Lung Transplant Team CC: diamond PROGRESS Observed: 05/29/2017 Status: COMPLETED Source: [place] 10:37 AM [facility] REPOSITORY HNO ID: [id number] Author: Melina (Rn) MADIHA Masters Service: (none) Author Type: Registered Nurse Type: Progress Notes Filed: 05/29/2017 10:43 AM Note Text: Pt has been called six times to attempt to SOT Lung intake for lung transplant referral. Contacted pt's referring physicians office and spoke with MADIHA Fink. I verified pt's phone number was correct and ask if their office could reach out to him. She stated that pt has been canceling office visits as well statinghe felt too well to come in. She also stated that pt was not sure he wanted to come for lung transplant evaluation. Called pt back one final time to ask him to give us a call to complete intake or end his referral if he is no longer interested in lung transplant. Stated that if his referral is ended and at a later date he felt he was getting more sick and that he was interested in a lung transplant, please have his referring physician refer him agin to [facility] at that time. Melina Masters RN, BSN, [id number] Pre-Lung/Heart Executive Business Coach PULMONARY VISIT REPORT Observed: 04/11/2017 Status: F Source: [place] 11:50 AM [facility] REPOSITORY [facility] [address] [place] [address]. [address] [place] [address] OFFICE VISIT Date of Service: 04/11/17 MR#: [id number] Acct: [id number] Name: PALOMO IRWIN Rep #: [id number] : 1965 Provider: Elisha Boss Age/Sex: 52/M [place] [facility] [place] Status: Signed Assessment AND Plan 1. Stage 4 very severe COPD by GOLD classification J44.9 Status Chronic Plan The patient does have significant wheezing on exam, he is complaining of chest tightness and increasing shortness of breath. He will be treated with a prednisone taper at this time. He has been advised to contact the office after 2 days of being on the prednisone to give us an update. If symptoms worsen or are not improving with the prednisone may need to order Levaquin. The patient reports that a Z-Angel is not effective for him. Plan on repeating pulmonary function test in 3 months, follow-up with Dr. Higuera after PFTs completed. Patient is appropriate for pulmonary rehab, is willing to participate. He is also interested in a lung transplant evaluation and is appropriate. Sending to [facility] for evaluation. Discussed the case with Dr. Higuera who is in agreement. No change in maintenance medications. Alpha-1 screening completed in the office today. Orders Orders: Referrals: 2. Chronic respiratory failure with hypoxia J96.11 Status Chronic Plan Continue supplemental oxygen and maintain saturations 89-92%. Patient is having an exacerbation of his COPD, this makes to in the past 3 months. Sending for lung transplant evaluation. PFT in 3 months and follow-up with Dr. Higuera. Plan Detail Other Orders Orders: Other Medications New: prednisone take 4 tabs for three days, then 3 tabs for three days, then 10 mg PO QDAY 2 tabs for three days, then 1 tab for 3 days Follow Up 3 Months ([facility]) HPI 3 M FU: Chief Complaint: wheeze HPI Comments Details: This is a 52 year old pleasant m, currently under the care of Ketan Peralta, here to follow up on [] chronic obstructive pulmonary disease with a DMITRI score of 6-7, and chronic hypoxic respiratory failure. PALOMO has not been treated with antibiotics and/or prednisone, and has not been treated in the ED/Urgent care for respiratory problems since the last office visit. Current medications consist of budesonide by nebulizer twice daily, DuoNeb 4 times daily, and albuterol rescue inhaler which is being used 1-2 times daily. Medication side effects: negative for sore throat, thrush, hoarseness, mouth lesions, or bleeding from nose or mouth. The patient reports compliance with rinsing mouth out after each use. He is experiencing shortness of breath on exertion, and is able to walk his dogs. Reports that his oxygen saturations are typically 90-95% on his 3 L nasal cannula oxygen. Over the past few days he has noticed increase in wheezing, as well as cough that is productive of green sputum. He occasionally has some chest tightness. He reports that his albuterol nebulizer gives him some temporary relief of his chest tightness and wheezing. He denies any hemoptysis. He has been able to put on a little bit of weight. He denies any fever or chills. He is having clear nasal drainage but denies any sinus pressure or congestion. He denies any headaches. See complete review of systems. Current home oxygen use is 3 LPM at all times. COPD checklist: Last PFTs were done on November 07, 2016 FVC is 48 % of predicted FEV1 is 20 % of predicted FEV1/FVC is 33 Not currently smoking Dyspnea 3 Exacerbations in the past 12 months 2 Last 6 min walk November 08, 2016, ambulated 963 feet, requires 3 L of nasal cannula oxygen Nutrition fair Mood good Influenza vaccine current Pneumococcal vaccine not applicable Pulmonary Rehab discussed *The GOLD (Global initiative on Obstructive Lung Disease) divides COPD into 4 categories based on the FEV1: I FEV1/FVC <0.7 and FEV1 <80% II FEV1/FVC <0.7 and FEV1 50-80% III FEV1/FVC <0.7 and FEV1 30-50% IV FEV1/FVC <0.7 and FEV1 <30% (or < 50% with respiratory failure) GOLD additionally stratifies patients by disease severity in order to guide therapy: A FEV1 >50% with few symptoms B FEV1 >50% with frequent symptoms C FEV1 <50% with few symptoms D FEV1 <50% with frequent symptoms Variable points on DMITRI Index 0 1 2 3 Fev1 [] % of predicted 65 50-64 36-49 <35 Distance walked in 6 min >3107 [phone] <149 MMRC dyspnea scale* 0-1 2 3 4 BMI >21 <21 DMITRI Index Score 0-2 2% 6% 19% 3-4 2% 8% 32% 4-6 2% 14% 40% 7-10 5% 31% 80% MMRC SCALE Grade Degree of breathlessness related to activities 0 Not troubled by breathlessness except on strenuous exercise Intake Vital Signs04/11/17 Height 5 ft 6 in 04/11/17 Weight: 130 lb 04/11/17 Body Mass Index (BMI) 20.9 04/11/17 Blood Pressure 177/92 Intake Visit Reasons: 3 M Palliative Nurse Required: No Allergies No Known Allergies Allergy (Verified 04/05/17 08:40) Medications Pravastatin Sodium [Pravachol] 20 mg PO QHS 03/23/16 [History Confirmed 04/11/17] Albuterol Inhaler [Ventolin Hfa] 2 puff INHALATION Q4H PRN PRN #1 inhaler 03/25/16 [Rx Confirmed 04/11/17] Ipratropium/Albuterol Respimat [Combivent Respimat Inhal [place]] 1 puff INHALATION 4X/DAY #1 inhaler 03/25/16 [Rx Confirmed 04/11/17] Benzonatate [Tessalon Perle] 100 mg PO TID PRN PRN 08/18/16 [History Confirmed 04/11/17] Folic Acid 1 mg PO DAILY@0800 #30 tab 08/23/16 [Rx Confirmed 04/11/17] Lisinopril [Zestril] 20 mg PO DAILY #30 tab 08/23/16 [Rx Confirmed 04/11/17] Multivitamins,Therapeutic [Multivitamin] 1 tab PO DAILY@0800 #0 tab 08/23/16 [Rx Confirmed 04/11/17] Thiamine Hydrochloride [Vitamin B1] 100 mg PO DAILYCM #30 tab 08/23/16 [Rx Confirmed 04/11/17] albuterol sulfate 2.5 mg/3 mL (0.083 %) solution for nebulization 2.5 mg INHALATION Q4H PRN ml 04/05/17 [History Confirmed 04/11/17] budesonide 0.5 mg/2 mL suspension for nebulization 0.5 mg INHALATION Q12H 04/05/17 [History Confirmed 04/11/17] prednisone 10 mg tablet 10 mg PO QDAY #30 tab 04/11/17 [Rx Confirmed 04/11/17] [facility] Medical History Acute and chronic respiratory failure with hypercapnia (Acute) Alcohol abuse (Chronic) Chronic respiratory failure (Chronic) Hyperlipidemia (Chronic) COPD exacerbation (Acute) Hypertension (Chronic) COPD (chronic obstructive pulmonary disease) (Chronic) Surgical History H/O chest tube placement (Resolved) Family History Mother COPD (chronic obstructive pulmonary disease) Aunt COPD (chronic obstructive pulmonary disease) Father Cancer Lung COPD (chronic obstructive pulmonary disease) Pneumonia Social History Smoking Status: Former smoker how long ago did patient quit smokin, 1pk/day second hand exposure: Yes alcohol intake: former substance use type: does not use FEV1% FEV1%: 20 Review of Systems Const CONSTITUTIONAL: Negative anorexia, body ache, chills, daytime sleepiness, fever(s), night sweats, oral thrush, stops breathing during sleep, weight loss, sleeping in chair, fatigue, weight loss, weight gain, frequent colds, seasonal allergies, other, headache(s) or orthopnea EETM Ear Nose Throat Mouth: Positive hearing normal and nasal discharge; negative hard of hearing, hoarseness, dry mouth in morning, change in vision, itchy eyes, eye pain, swallowing Difficulty, ear pain, nose bleed, headache(s), mouth pain, nasal congestion, post nasal drip, sinus pain, sinus pressure, sore throat or other Cardio Cardiovascular: Negative chest pain, chest pain at rest, chest pain with activity, irregular heart rhythm, edema, shortness of breath when lying down, palpitations, murmur or other Resp Respiratory: Positive as per HPI, wheezing, chest tightness and inhalers; negative shortness of breath, pain with cough, chest congestion, cough, pain on inspiration, increase use of rescue inhalers, snoring, apnea or other Gastro Gastrointestional: Negative bloody stools, change in appetite, difficulty swallowing, reflux, hematemesis, melena stool, loose stool, constipation or other Genitourinary: Negative blood in urine, nocturia, pain with urination or other Musc Musculoskeletal: Negative body pain, back pain, neck pain or other Skin/Breast Skin/Breast: Negative dry skin, itching, rash, unusual bruising, breast lump or other Neuro Neurological: Negative restless legs, confusion, weakness or other Psych Psychocological: Negative abnormal sleep pattern, anxiety, thoughts of hurting self/others, hopelessness or other Lymph Lymphatic: Negative easy bleeding, easy bruising, swollen lymph nodes or other Exam Const Constitutional: Positive conversant, cooperative, in no acute respiratory distress, well developed, well nourished, poor hygiene, frail appearing, cachectic, wearing supplemental oxygen and dyspenic; negative obese Head Head: Positive normocephalic and atraumatic; negative cyanosis of lips/distal nose Eyes Eye: Positive clear conjunctiva and nystagmus; negative scleral abnormality Ears Ear: Positive hearing normal and external ears normal; negative hard of hearing Nose Nose: Positive external nose normal and clear nasal discharge; negative epistaxis Mouth Mouth: Positive oral mucosae normal, edentulous, no lesions and posterior oropharynx is adequate; negative post nasal drip, malodorous breath or oral thrush present Mallampati Score: I: Mallampati Score Neck Neck: Positive normal visual inspection, full ROM and trachea midline; negative lymphadenopathy, JVD or tender Chest Wall Chest: Positive normal inspection of the chest and symmetric chest movement; negative increased A/P diameter Resp lung sounds: Positive wheezes, diminished, wheeze present on forced exhalation, prolonged expiratory time and normal chronic state of increased work of breathing; negative rhonchi, rales or dullness to percussion Cardio Cardiac: Positive regular rate, regular rhythm, S1 normal and S2 normal; negative murmur GI GI: Positive normal to inspection and normal bowel sounds; negative distended or obese Genitourinary: Positive deferred Musc Musculoskeletal: Positive steady gait and ROM normal; negative kyphosis or scoliosis Skin Pulmonary Skin Exam: Positive intact; negative rash, lesion, ulcers, erythema, scaly or dermal atrophy Pulses Pulse: Yes pulses normal x4 extremities Extremities Extremities: Yes capillary refill normal, Yes clubbing, No cyanosis, No edema, No stasis dermatitis Neuro Neurologic: Yes conversant, Yes no focal neuro deficits, Yes normal cognition, Yes normal coordination, Yes cooperative, Yes understands questions, Yes normal concentration Lymph Lymphatic: No lymphadenopathy, No tenderness, No cervical adenopathy, No axillary adenopathy Psych Appearance: Positive grossly normal, eye contact and well kempt Mental Status: Positive mental status grossly normal Mood: Positive congruent mood Affect: Positive normal affect Office Procedures Alpha One Finger Stick Alpha One Procedure performed by: Danae Maldonado Alpha One Screening Test: Yes alpha one test completed, tolerated well and dressing applied Coding Level of Care Code Off vis,est,level 4 Diagnoses Stage 4 very severe COPD by GOLD classification J44.9 Chronic respiratory failure with hypoxia J96.11 Respiratory failure complication: hypoxia Additional Codes Alpha One (NOCHG) 04/11/17 1150 <Electronically signed by Elisha ROSA> Date Elisha VALENZUELAC Cosigner Signature: Date (if applicable) CC: Ketan Peralta MD ALLERGIES ALLERGIES DATE TYPE / CODE NAME / CODE REACTION SEVERITY SOURCE 10/25/2017 Drug No Known Unknown [facility] Allergy/416 Allergies/S96501 Hospital 927901(SNOM 0388(RXNORM) Repository ED CT) Drug NO KNOWN [facility] Class/97768 ALLERGIES [facility] 1003(SNOMED Repository CT) ENCOUNTERS ENCOUNTERS ADMIT/DISCHARGE ACCOUNT ADMITTING ENCOUNTER LOCATION SOURCE NUMBER CLASS 02/26/2018 [id number] Ambulatory BMSBuilding:[facility] Repository 02/26/2018 [id number] Ambulatory [facility] ing:PSN Repository 01/31/2018 [id number] Ambulatory BMSBuilding:[facility] Repository 01/30/2018 [id number] Ambulatory [facility] ing:PSN Repository 10/25/2017 [id number] Ambulatory [facility] Repository 10/25/2017/10/27/19 [id number] Ambulatory [address] Repository 10/25/2017/10/26/19 [id number] Ambulatory BMSBuilding:[place] 18 [place].[facility] Repository 10/18/2017/10/20/19 [id number] Ambulatory BMSBuilding:[place] 18 [facility] Repository 10/16/2017/10/20/19 [id number] Zuri Muñoz Inpatient [place] 18 [place] Encounter [facility] Hospital ing:PCURoom: Repository JUD198Rrg: 1 10/16/2017 [id number] Zuri Muñoz Ambulatory BMSBuilding:B [place] MS.WIP [facility] Repository 10/16/2017/10/20/19 [id number] Ambulatory BMSBuilding:W [place] 18 [facility] Repository 07/24/2017 [id number] Ambulatory BMSBuilding:B [place] [facility] Repository 07/17/2017 [id number] Ambulatory [place] [facility] Hospital ing:PSN Repository 05/29/2017 [id number] Ambulatory BMSBuilding:[place] MS.[facility] Repository 04/11/2017/04/11/19 [id number] Ambulatory BMSBuilding:B [place] 18 MS.[facility] Repository PAYERS PAYERS ENCOUNTER GUARANTOR PAYER SUBSCRIBER SOURCE 02/26/2018 [place] W Primary [place] [id number] [place] Insurance:HUMANA GENTRYDOB[place] PPOPolicy [id number] Hospital [address]Iwt: (330) Number: Repository [phone] () [id number] Date:[id number] [address]NV: 02/26/2018 Secondary NOT GIVENUNK [place] Insurance:SELF PAY [facility] Number: Effective Repository Date:2018-02-26 02/26/2018 [place] W Primary [place] [id number] [place] Insurance:HUMANA GENTRYDOB: [place] PPOPolicy [id number] Hospital [address]Xqr: [phone]) Number: Repository [phone] () [id number] Date:9829-08-98DF [address] [address]ZR: 02/26/2018 Secondary NOT GIVENUNK [place] Insurance:SELF PAY [facility] Number: Effective Repository Date:2018-01-22 01/31/2018 [place] W Primary [place] [id number] [place] Insurance:HUMANA GENTRYDOB: [place]icy [id number] [address]Tel: [phone]) Number: Repository [phone] () [id number] Date:9569-23-39EY [address] [address]UE: 01/31/2018 Secondary NOT GIVENUNK [place] Insurance:SELF PAY [facility] Number: Effective Repository Date:2018-01-31 01/30/2018 [place] W Primary [place] [id number] [place] Insurance:HUMANA GENTRYDOB: [place] PPOPolicy [id number] [address]Tel: [phone]) Number: Repository [phone] () [id number] Date:2360-20-15ZZ [address] [address]QO: 01/30/2018 Secondary NOT GIVENUNK [place] Insurance:SELF PAY [facility] Number: Effective Repository Date:2018-01-22 10/25/2017 [place] W Primary [place] [id number] [place] Insurance:HUMANA GENTRYDOB: [place]icy [id number] [address]Tel: [phone]) Number: Repository [phone] () [id number] Date:4419-75-04NG [address] [address]LJ: 10/25/2017 Secondary NOT GIVENUNK [place] Insurance:SELF PAY [facility] Number: Effective Repository Date:2017-10-23 10/18/2017 [place] W Primary [place] [id number] [place] Insurance:HUMANA GENTRYDOB: [place]OP[place] [id number] Hospital [address]Eaq: [phone]) Number: Repository [phone] () [id number] Date:2508-66-46QF [address] [address]AL: 10/18/2017 Secondary NOT GIVENUNK [place] Insurance:SELF PAY [facility] Number: Effective Repository Date:2017-10-18 10/16/2017 [place] W Primary [place] W [place] [id number] [place] Insurance:HUMANA GENTRYDOB: [place] [id number] Hospital [address]Ovy: [phone]) Number: Repository [phone] () [id number] Date:8005-43-20NE [address] [address]ZX: 10/16/2017 Secondary NOT GIVENUNK [place] Insurance:SELF PAY [facility] Number: Effective Repository Date:2017-10-16 10/16/2017 [place] W Primary [place] W [place] [id number] [place] Insurance:HUMANA GENTRYDOB: [place] [id number] [id number]: [phone]) Number: Repository [phone] () [id number] Date:3691-81-06JO [address] [address]GH: 10/16/2017 Secondary NOT GIVENUNK [place] Insurance:SELF PAY [facility] Number: Effective Repository Date:2017-10-16 10/16/2017 [place] W Primary [place] [id number] [place] Insurance:HUMANA GENTRYDOB: [place]icy [id number] [id number]: (330) Number: Repository [phone] () [id number] Date:8400-65-20JP [address] [address]LH: 10/16/2017 Secondary NOT GIVENUNK [place] Insurance:SELF PAY [facility] Number: Effective Repository Date:2017-10-16 07/24/2017 [place] W Primary [place] [id number] [place] Insurance:HUMANA GENTRYDOB: [place]OP[place] [id number] Hospital [address]Hqi: (330) Number: Repository [phone] () [id number] Date:6076-46-94MF [address]46[address]WP: 07/24/2017 Secondary NOT GIVENUNK [place] Insurance:SELF PAY [facility] Number: Effective Repository Date:2017-07-17 07/17/2017 [place] W Primary [place] [id number] [place] Insurance:HUMANA GENTRYDOB: [place]OP[place] [id number] Hospital [address]Ssj: (330) Number: Repository [phone] () [id number] Date:5910-34-04RW [address]46[address]WP: 07/17/2017 Secondary NOT GIVENUNK [place] Insurance:SELF PAY [facility] Number: Effective Repository Date:2017-04-11 05/29/2017 [place] W Primary [place] [id number] [place] Insurance:HUMANA GENTRYDOB: [place] [id number] Hospital [address]Wmn: (330) Number: Repository [phone] () [id number] Date:9836-33-56KB [address] [address]IZ: 05/29/2017 Secondary NOT GIVENUNK [place] Insurance:SELF PAY [facility] Number: Effective Repository Date:2017-05-24 04/11/2017 [place] W Primary [place] [id number] [place] Insurance:HUMANA GENTRYDOB: [place] PPOP[place] [id number] Hospital [address]Thw: (330) Number: Repository [phone] () [id number] Date:0764-86-96[address], [place] [address]US: 04/11/2017 Secondary NOT GIVENUNK [place] Insurance:SELF PAY [facility] Effective Repository Date:2017-02-23
== END ==
PROVIDERS: Family Provider Family Medicine; PCP Family Medicine; Referring Provider Internal Medicine Critical Care Medicine; Visit Provider Internal Medicine Critical Care Medicine
DX: J44.9 Chronic obstructive pulmonary disease, unspecified (principal)
CPT/HCPCS: 94060; 94726; 94729

== ENCOUNTER 2020-12-26 00:24 | Inpatient (IN) | payer MEDICARE, SELFPAY ==
[2020-12-26] VITALS (22 sets, daily range): BP systolic 140–191; BP diastolic 79–110; PULSE 77–117; RESP 12–26; TEMP 36.6–37.7; O2SAT 92–99; BMI 19.8; BMI 18.7
--- NOTE | 2020-12-26 00:48 | RAD_ITS ---
STUDY: X-RAY CHEST REASON FOR EXAM: Male, 55 years old. sob TECHNIQUE: Single AP portable view of the chest. COMPARISON: 10/16/2017. FINDINGS: There is hyperinflation of the lungs consistent with chronic obstructive lung disease (COPD). Otherwise lung roland are clear. There is no demonstrated pleural abnormality. Normal size heart. Normal mediastinum and kathleen. Normal visualized pulmonary arteries. Normal visualized aortic arch and descending thoracic aorta. There are diffuse degenerative changes of the visualized thoracic spine. Normal visualized ribs, clavicles, and shoulders. There is no demonstrated abnormality of the visualized soft tissue structures of the upper abdomen. RAD/Chest 1 View (Portable) IMPRESSION: No acute cardiopulmonary disease. Electronically Signed: Roxana Rabago MD at 1:43 EDT , Service support ,
--- NOTE | 2020-12-26 00:48 | CT_ITS ---
EXAM: CT Abdomen and Pelvis With Intravenous Contrast CLINICAL INDICATION: 55 years old, Male; abdominal pain, vomiting TECHNIQUE: Helically acquired images were obtained of the abdomen and pelvis with intravenous contrast. This CT exam was performed using one or more of the following dose reduction techniques: automated exposure control, adjustment of the mA and/or kV according to patient size, and/or use of iterative reconstruction technique. This report was created using [employer] report generation technology. CONTRAST: IV 100mL Isovue-370 COMPARISON: None. FINDINGS: Lower thorax: Unremarkable. Lung bases are clear. No cardiomegaly. No significant pericardial effusion. ABDOMEN: Liver: Unremarkable. Homogeneous. No focal mass. Gallbladder and bile ducts: Unremarkable. No calcified gallstones. No gallbladder distention or wall edema. No intra- or extrahepatic biliary ductal dilation. Pancreas: Unremarkable. No focal cystic or solid mass. Spleen: Unremarkable. Normal size without focal cystic or solid mass. Adrenals: Unremarkable. No nodules. Kidneys and ureters: Low-attenuation focus right kidney which may be due to a cyst but is too small to characterize. No follow-up is necessary. No hydronephrosis. Stomach and bowel: There is fluid in the colon suggesting diarrhea. No stomach or bowel distention. No focal inflammatory change. PELVIS: Appendix: Normal appendix. Bladder: Unremarkable. Reproductive: Unremarkable as visualized. No mass. ABDOMEN and PELVIS: Intraperitoneal space: Unremarkable. No ascites or other fluid collection. No free air. Bones/joints: Unremarkable. No suspicious lytic or blastic abnormality. Soft tissues: Bilateral inguinal hernias containing fat. Umbilical hernia containing fat. Vasculature: Unremarkable. Abdominal aorta is non-dilated. Lymph nodes: Unremarkable. No enlarged lymph nodes. CT/Abdomen/Pelvis W IV Cont ONLY IMPRESSION: There is fluid in the colon suggesting diarrhea. ASSESSMENT: ABNORMAL report - There are abnormal findings in this report which may be related or unrelated to the reason for the exam. Electronically Signed: Tahir Feng MD at 3:07 EDT Tel , Service support ,
[2020-12-26] MEDS: Ipratropium/Albuterol Sulfate 3 ML AMPUL.NEB INHALATION ×5 (00:57→23:16)
--- NOTE | 2020-12-26 01:00 | EKG12_ITS ---
Test Reason : SOB Blood Pressure : / mmHG Vent. Rate : 113 BPM Atrial Rate : 113 BPM P-R Int : 096 ms QRS Dur : 070 ms QT Int : 302 ms P-R-T Axes : 083 037 067 degrees QTc Int : 414 ms Sinus tachycardia with short MI Otherwise normal ECG Confirmed by CRISPIN PHAM, CHARLENE ([id number]), editor department ADY CHOWDARY ([id number]) on 12/28/2020 9:31:48 AM Referred By: ROBERT Confirmed By:CHARLENE ROA MD
[2020-12-26 01:03] LABS: Absolute Neutrophil Count 6.4 X10^3/uL (2.0-7.7); Basophil# 0.09 X10^3/uL; Basophil% 0.9 % (0-1); Eosinophil# 0.77 X10^3/uL; Eosinophils% 7.6 % (0-5); Hematocrit 39.6 % (40-54); Hemoglobin 13.4 g/dL (13.0-16.5); Lymphocyte % 17.9 % (19-41); Mean Corp Hgb Conc 33.8 g/dL (32-36); Mean Corpuscular Hgb 31.8 pg (27.0-32.0); Mean Corpuscular Volume 93.8 fL (80-94); Mean Platelet Vol. 8.7 fl (6.2-12.0); Monocyte# 0.94 X10^3/uL; Monocyte% 9.3 % (0-10); NRBC Flagged by Analyzer 0 % (0-5); Neutrophil # 6.42 X10^3/uL (2.7-7.7); Neutrophil % 63.8 % (47-70); Platelet Count 274 K/mm3 (150-450); RBC Distribution Width CV 12.6 % (11.6-14.6); RBC Distribution Width SD 43.8 fl (35.1-43.9); Red Blood Count 4.22 M/mm3 (4.6-6.2); White Blood Count 10.1 K/mm3 (4.4-11.0)
[2020-12-26 01:15] LABS: D-Dimer Quantitative (DVT/PE) 1.22 FEU/ug/m (0.27-0.49)
--- NOTE | 2020-12-26 01:16 | CT_ITS ---
EXAM: CT Angiography Chest Without and With Intravenous Contrast CLINICAL INDICATION: 55 years old, Male; sob, elevated dimer TECHNIQUE: Helically acquired angiography images were obtained of the chest without and with intravenous contrast. This CT exam was performed using one or more of the following dose reduction techniques: automated exposure control, adjustment of the mA and/or kV according to patient size, and/or use of iterative reconstruction technique. This report was created using [employer] report generation technology. MIP reconstructed images were created and reviewed. CONTRAST: IV 100mL Isovue-370 COMPARISON: None. FINDINGS: Artifacts: Motion artifact. Pulmonary arteries: Unremarkable. Normal in caliber. No pulmonary embolism is identified. Motion artifact limits evaluation of the distal pulmonary arteries. Aorta: Unremarkable. Normal in caliber. No evidence of dissection. Great vessels of aortic arch: Unremarkable. Normal in caliber. No evidence of dissection. Lungs and pleural spaces: Scarring or atelectasis right upper lobe posteriorly. No mass. No pleural effusion or thickening. No pneumothorax. Heart: Unremarkable. Heart size is normal. No pericardial effusion. No signs of right heart strain, ratio of right ventricle to left ventricle measures less than 1. Mediastinum: Unremarkable. No mediastinal or hilar adenopathy. Esophagus is unremarkable. No hiatal hernia. Thyroid: Unremarkable. No thyroid lesions. Bones/joints: Unremarkable. No suspicious lytic or blastic abnormality. CT/CTA Chest W/WO Contrast IMPRESSION: No pulmonary embolism is identified. Motion artifact limits evaluation of the distal pulmonary arteries. ASSESSMENT: INCIDENTAL report - The findings in this report are either known or are not significant. Electronically Signed: Tahir Feng MD at 3:04 EDT Tel , Service support ,
[2020-12-26 01:20] LABS: BNP,B-Type NATRIURETIC PEPTIDE 22.4 pg/mL (0-100)
[2020-12-26 01:21] LABS: ALB/GLOB Ratio 0.9 RATIO (0.9-2.4); AST(SGOT) 47 U/L (15-37); Alanine Aminotransfer ALT/SGPT 33 U/L (16-61); Albumin, Serum 3.8 g/dL (3.2-5.0); Alkaline Phosphatase 62 U/L (45-117); Anion Gap 11 (5-15); BUN 4 mg/dL (7-18); BUN/Creat Ratio 6.8 RATIO (10-20); Bilirubin, Direct 0.24 mg/dL (0.00-0.30); Calcium,Total 8.9 mg/dL (8.5-10.1); Chloride 81 mmol/L (98-107); Creatinine, Serum 0.58 mg/dL (0.70-1.30); EST Glomerular Filtration Rate 152 mL/min (>60); Est Glom Filt Rate - Afr Amer 184 mL/min (>60); Estimated Creatinine Clearance 112.04 ml/min; Globulin 4.2 g/dL (2.2-4.2); Glucose 93 mg/dL (74-106); Lipase 59 U/L (73-393); Potassium 4.3 mmol/L (3.5-5.1); Sodium Level 123 mmol/L (136-145); Troponin-I HS 12 pg/mL (3.0-78.0)
[2020-12-26 01:31] LABS: Lactic Acid 1.4 mmol/L (0.4-1.9)
[2020-12-26] MEDS: Ondansetron 4 MG/2 ML Vial IV (02:12)
[2020-12-26 02:34] LABS: Mucous, Urine 0 SEEN /hpf (<or=2+); Red Blood Cells-Urine 0 SEEN /hpf (0-5); Squamous Epithelial Cells - UA 0 SEEN /hpf (0-5); White Blood Cells 0 SEEN /hpf (0-5)
[2020-12-26 02:35] LABS: Color, Urine Yellow (Yellow); Glucose, Dipstick Normal (Normal); Ketone-Dipstick 15 mg/dl (Negative); Leukocyte Esterase-Dipstick Negative /ul (Negative); Nitrite-Dipstick Negative (Negative); Occult Blood-Urine Negative /ul (Negative); Protein-Dipstick 30 mg/dl (Negative); Specific Gravity, Urine 1.015 (1.002-1.030); Urine Bilirubin Dipstick Negative (Negative); Urine Clarity Clear (Clear); Urine Urobilinogen Normal (Normal)
[2020-12-26 02:45] LABS: Bacteria RARE /hpf (None Seen)
--- NOTE | 2020-12-26 04:04 | HP.PCM.HOS_ITS ---
HPI - General General Date of Admission: 12/26/20 Date of Service: 12/26/20 Chief Complaint: Shortness of breath HPI Narrative PALOMO CAIN, is a 55 M who presented to the emergency department [facility] on 12/26/2020 with a chief complaint of shortness of breath. The patient indicates that he has known COPD and approximately 3 days ago he began having increased shortness of breath. He has had no sick contacts. He denies any change in his cough or change in sputum production. Exacerbating factors include exertion and his symptoms are relieved with rest and his supplementary oxygen. He denies any fever or chills. He has not had good p.o. intake in approximately 3 days now because of the severe coughing that he has had to the point that it has induced emesis. He also states that he has had some diarrhea as well. He does drink alcohol on a regular basis and reports that he drinks at least 6 beers a day. These are 12 ounce beers and his last alcohol intake was last evening. He denies ever having acute alcohol withdrawal. He wears approximately 3 L of oxygen at baseline. His most recent admission here was in 2017 for which he did follow-up briefly with pulmonary but it does not appear that the patient has followed up with Dr. Higuera since February 2018. PFTs were done at that time and showed partially reversible very severe large airway obstructive ventilatory defect with air trapping and h yperinflation. His oxygen saturations have remained stable on his 3 L but he is having some pursed lip breathing that has persisted throughout his emergency department stay. His CBC is unimpressive and shows no significant abnormalities other than an eosinophilia at 7.6%. His CMP shows hyponatremia at 123, hypochloremia at 81, mild AST elevation at 47, and a troponin of 12 with a BNP of 22.4. A D-dimer was elevated at 1.22 and therefore a CTA of his chest was performed and showed no pulmonary embolism with scarring in the upper lobes posteriorly. With his nausea and vomiting/diarrhea a CT of his abdomen and pelvis was performed and showed fluid in his colon suggesting diarrhea. In the emergency department he was treated with Zofran for his nausea, given Solu- Medrol 125 mg x 1 dose and duo nebs. Request for admission was made given continued pursed lip breathing and wheezing on exam. [facility] Medical History (Updated 12/26/20 @ 04:[address] Iesha Holley DO) Acute and chronic respiratory failure with hypercapnia Alcohol abuse Chronic respiratory failure COPD (chronic obstructive pulmonary disease) COPD exacerbation Hyperlipidemia Hypertension Home Medications pravastatin 20 mg PO QHS 03/23/16 [History Last Taken 10/14/17] lisinopril 20 mg PO DAILY #30 tab 08/23/16 [Rx Last Taken 10/14/17] aspirin 81 mg PO DAILY@0800 10/16/17 [History Last Taken 10/14/17] albuterol sulfate 2 puff INHALATION Q4H PRN PRN #1 inhaler 10/19/17 [Rx Last Taken Unknown] albuterol sulfate 2.5 mg INHALATION Q4H PRN #30 ml 10/19/17 [Rx Last Taken Unknown] ipratropium-albuterol 1 puff INHALATION 4X/DAY #1 inhaler 10/19/17 [Rx Last Taken Unknown] budesonide [Pulmicort] 0.5 mg INHALATION Q12H 12/26/20 [History Last Taken Unknown] ipratropium-albuterol [Combivent Respimat] INHALATION 12/26/20 [History Last Taken Unknown] Allergy/AdvReac Type Severity Reaction Status Date / Time No Known Allergies Allergy Verified 12/26/20 00:29 Family History Mother COPD (chronic obstructive pulmonary disease) Aunt COPD (chronic obstructive pulmonary disease) Father Cancer Lung COPD (chronic obstructive pulmonary disease) Pneumonia Surgical History H/O chest tube placement Social History (Updated 12/26/20 @ 04:[address] Iesha Holley DO) Smoking Status: Former smoker Tobacco: How many years used: 20 how long ago did patient quit smokin, 1pk/day second hand exposure: Yes alcohol intake: current alcohol intake frequency: other Alcohol type: beer details: At least 612 ounce beers daily with last intake last evening substance use type: does not use ROS Constitutional Constitutional: Reports anorexia, fatigue and weakness; Denies change in weight, chills, fever(s), malaise, night sweats or other Eyes Eyes: Denies blurry vision, change in eye color, change in vision, discharge from eye(s), double vision, erythema, eye pain, loss of vision or other ENT HEENT: Denies abnormal hearing, dysphagia, ear pain, epistaxis, headache(s), hearing loss, nasal congestion, nasal discharge, post nasal drip, sinus pressure, sore throat or other Cardiovascular Cardiovascular: Reports dyspnea on exertion; Denies chest pain, claudication, edema, lightheadedness, orthopnea, palpitations, paroxysmal nocturnal dyspnea, rapid heart rate, syncope or other Respiratory/Chest Respiratory/Chest: Reports cough, dyspnea, productive cough, shortness of breath at rest, shortness of breath with exertion and wheezing; Denies excessive phlegm production, hemoptysis or other Gastrointestinal Gastrointestinal: Reports diarrhea, nausea and vomiting; Denies abdominal pain, coffee ground emesis, constipation, dyspepsia, hematemesis, hematochezia, loose stools, melena or other Genitourinary Genitourinary: Denies burning urination, difficulty urinating, dysuria, hematuria, nocturia, urinary frequency, urinary hesitancy, urinary incontinence, urinary urgency or other Musculoskeletal Musculoskeletal: Denies arthralgias, back pain, joint pain, joint stiffness, joint swelling, myalgias, neck pain or other Neurologic Neurologic: Denies abnormal gait, abnormal speech, confusion, disequilibrium, dizziness, focal weakness, headache(s), numbness, paresthesias, seizure-like activity, seizures, syncope, tingling, tremor(s) or other Psychiatric Psychiatric: Denies anxiety, depression, homicidal ideation, suicidal ideation or other Endocrine Endocrinology: Denies change in body appearance, cold intolerance, excessive sweating, heat intolerance, polydipsia, polyuria or other Hematologic/Lymphatic Hematologic/Lymphatic: Denies anemia, easy bleeding, easy bruising, lymphadenopathy or other Allergic/Immunologic Allergic/Immunologic: Denies rhinitis, hives, eczemia, asthma or other Vital Signs Vital Signs Vital Signs: 12/26/20 00:25 12/26/20 00:33 12/26/20 00:44 Temperature 98.4 F Temperature Source Temporal Pulse Rate 117 H Respiratory Rate 18 Respiratory Effort Short of Breath Respiratory Pattern Tachypnea Blood Pressure 174/94 H Blood Pressure Mean 120 Pulse Ox 97 97 Oxygen Delivery Method Room Air CPAP Fraction of Inspired Oxygen (FIO2) 30 12/26/20 00:58 12/26/20 02:33 12/26/20 03:31 Temperature Temperature Source Pulse Rate 112 H 103 H 108 H Respiratory Rate 18 18 Respiratory Effort Respiratory Pattern Normal Blood Pressure 176/89 H Blood Pressure Mean 118 Pulse Ox 98 97 Oxygen Delivery Method Room Air Fraction of Inspired Oxygen (FIO2) Weight Weight: 55.7 kg Body Mass Index (BMI) 19.8 Physical Exam Const alert, oriented x3 and no apparent distress Constitutional Narrative: Thin upper middle-aged white male who appears older than stated age, lying in bed, appears nontoxic, intermittent pursed lip breathing with conversation, significant other at bedside, disheveled appearance General Appearance: cooperative HEENT normocephalic, head/scalp atraumatic, hearing grossly normal bilaterally and moist oral mucous membranes HEENT Narrative: Poor dentition, no thrush, Mallampati 2 Eyes PERRL, EOMs intact bilaterally and conjunctivae normal Eyes Narrative: No scleral icterus Neck no lymphadenopathy, supple, no JVD and no carotid bruits Resp no retractions and no use of accessory muscles Resp Narrative: Pursed lip breathing with dyspnea on conversation markedly decreased air movement with scattered wheeze Auscultation: wheezes; Negative for crackles, rales or rhonchi Cardio regular rhythm, S1 normal heart sound, S2 normal heart sound, no murmurs, no rub, no gallops, no clicks and no JVD Cardio Narrative: Mild tachycardia GI normal to inspection, nondistended, normoactive bowel sounds, soft to palpation, non-tender and non-distended; Negative for hepatosplenomegaly Extremity no clubbing, cyanosis or edema Extremity Narrative: Decreased lean muscle mass Peripheral Pulses: Yes pulses 2+ throughout Skin skin turgor normal, no jaundice, no petechiae and no mottling Skin Narrative: Rash on bilateral lower extremities at feet right greater than left appears to be excoriations that are healing Neuro oriented x3, CN's II-XII intact bilaterally, moves all extremities and no focal motor deficits Neuro Narrative: Generalized weakness Sensorium / Orientation: awake and alert Speech: speech normal Psych Psych Narrative: Affect is somewhat flat Results Lab / Micro Data Attestation: I reviewed the patient's lab results. Result Diagrams: 12/26/20 00:29 12/26/20 00:29 Labs: Laboratory Results - last 24 hr 12/26/20 00:29: WBC 10.1, RBC 4.22 L, Hgb 13.4, Hct 39.6 L, MCV 93.8, MCH 31.8, MCHC 33.8, RDW Std Deviation 43.8, RDW Coeff of Sherri 12.6, Plt Count 274, MPV 8.7, Immature Gran % (Auto) 0.500, Neut % (Auto) 63.8, Lymph % (Auto) 17.9 L, [place] % (Auto) 9.3, Eos % (Auto) 7.6 H, Baso % (Auto) 0.9, Absolute Neuts (auto) 6.4, Absolute Lymphs (auto) 1.80, Nucleated RBC % 0 12/26/20 00:29: D-Dimer Quant (PE/DVT) 1.22 H* 12/26/20 00:29: Sodium 123 L, Potassium 4.3, Chloride 81 L, Carbon Dioxide 31.0, Anion Gap 11, BUN 4 L, Creatinine 0.58 L, Estim Creat Clear Calc 112.04, Est GFR (MDRD) Af Amer 184, Est GFR (MDRD) Non-Af 152, BUN/Creatinine Ratio 6.8 L, Glucose 93, Calcium 8.9, Total Bilirubin 0.70, Direct Bilirubin 0.24, AST 47 H, ALT 33, Alkaline Phosphatase 62, Troponin I High Sens 12, Total Protein 8.0, Albumin 3.8, Globulin 4.2, Albumin/Globulin Ratio 0.9, Lipase 59 L 12/26/20 00:29: B-Natriuretic Peptide 22.4 12/26/20 00:56: Lactic Acid 1.4 12/26/20 02:06: Urine Color Yellow, Urine Clarity Clear, Urine pH 6.0, Ur Specific [place] 1.015, Urine Protein 30 H, Urine Glucose (UA) Normal, Urine Ketones 15 H, Urine Occult Blood Negative, Urine Nitrite Negative, Urine Bilirubin Negative, Urine Urobilinogen Normal, Ur Leukocyte Esterase Negative, Urine RBC 0 SEEN, Urine WBC 0 SEEN, Ur Squamous Epith Cells 0 SEEN, Urine Bacteria RARE, Urine Mucus 0 SEEN Micro: Microbiology 12/26/20 00:07 Nasal Secretion SARS-CoV-2 Antigen (Rapid) - Final Radiology Impression Abdomen/Pelvis CT 12/26/20 00:48 IMPRESSION: There is fluid in the colon suggesting diarrhea. ASSESSMENT: ABNORMAL report - There are abnormal findings in this report which may be related or unrelated to the reason for the exam. Electronically Signed: Tahir Feng MD at 3:07 EDT Tel , Service support , Chest X-Ray 12/26/20 00:48 IMPRESSION: No acute cardiopulmonary disease. Electronically Signed: Roxana Rabago MD at 1:43 EDT , Service support , Chest CTA 12/26/20 01:16 IMPRESSION: No pulmonary embolism is identified. Motion artifact limits evaluation of the distal pulmonary arteries. ASSESSMENT: INCIDENTAL report - The findings in this report are either known or are not significant. Electronically Signed: Tahir Feng MD at 3:04 EDT Tel , Service support , Assessment & Plan Assessment/Plan (1) Acute and chronic respiratory failure with hypercapnia: (2) COPD exacerbation: (3) Hyponatremia: (4) Nausea & vomiting: (5) Diarrhea: (6) Alcohol abuse: (7) D-dimer, elevated: (8) Severe malnutrition: PLAN: Acute on chronic hypoxic respiratory failure with hypercapnia secondary to acute exacerbation of COPD -Supplemental oxygen to keep oxygen saturations greater than 88% -No signs of infectious etiology at this time and no change in cough or sputum production -Check strep pneumo and Legionella antigens -Check viral respiratory PCR -Incentive spirometry/Acapella -Pulmonary toilet -Solu-Medrol 40 every 8 -Recommend follow-up with outpatient pulmonary after discharge Hyponatremia -Suspect this is hypovolemic hyponatremia with decreased p.o. intake over the last 3 days, nausea, vomiting, diarrhea -We will run IV fluids at 100 an hour x2 L -Check TSH -If no improvement in sodium with fluid correction then would pursue further work-up with osmolality studies and urine lites -Beer potomania also may be a contributory factor Nausea/vomiting/diarrhea -Antiemetics available -Check enteric stool -Check C. difficile D-dimer elevation -CTA was performed and negative for PE Alcohol abuse -Patient denies ever having withdrawal -Drinks at least 6 12 ounce beers daily with his last drink being last evening -We will initiate CIWA protocol with as needed Ativan availability -Thiamine 200 mg daily x3 days -Folic acid supplementation -Multivitamin Severe malnutrition -Dietitian to see patient in consultation -[place] diet -Ensure supplementation COPD -Hold home budesonide at this time restart on discharge -As needed nebulizers -Needs continued pulmonary follow-up as an outpatient -Patient has remote history of tobacco abuse but no longer smokes Hypertension -Continue lisinopril -As needed hydralazine available for systolic blood pressure greater than 160 Hyperlipidemia -Continue pravastatin DVT prophylaxis -Lovenox daily -SCDs CODE STATUS -DNR CCA with no intubation as per discussion with patient and his in the emergency department upon admission Charges/Coding Visit Charges Inpatient E&M: 10888 Init Hosp L3
[2020-12-26] MEDS: MethylPREDNISolone 125 MG/2 ML Vial IV (04:20)
--- NOTE | 2020-12-26 05:09 | EDS_ITS ---
HPI History of Present Illness Chief Complaint: Shortness of Breath Informant: patient Onset/Context/Timing Onset: Today Narrative Narrative: Patient is a 55-year-old male with history of stage IV COPD and chronic respiratory failure on 3 and half liters of oxygen at baseline presenting with shortness of breath and chest pain. Patient states he suddenly became very short of breath today. He states he has a chronic cough which is unchanged. In addition for the past 2 to 3 days has been having intermittent chest pain on the left side. Does not report any aggravating or alleviating factors. Has had vomiting for the past few days with decreased oral intake. He has had epigastric discomfort and intermittently has been passing gas and having diarrhea. Denies any black or blood in his stool or his vomit. States he does drink 6 beers a day and has had no recent change in his alcohol intake. Does not feel he is in any type of alcohol withdrawal. Did not use nebulizer at home prior to coming in. Does not have home BiPAP. When he arrived he did tell respiratory that he felt that he needed BiPAP. [facility] Medical History (Updated 12/26/20 @ 05:[address] Mora Acharya, ) Acute and chronic respiratory failure with hypercapnia Alcohol abuse Chronic respiratory failure COPD (chronic obstructive pulmonary disease) COPD exacerbation Hyperlipidemia Hypertension Home Medications pravastatin 20 mg PO QHS 03/23/16 [History Last Taken 10/14/17] lisinopril 20 mg PO DAILY #30 tab 08/23/16 [Rx Last Taken 10/14/17] aspirin 81 mg PO DAILY@0800 10/16/17 [History Last Taken 10/14/17] albuterol sulfate 2 puff INHALATION Q4H PRN PRN #1 inhaler 10/19/17 [Rx Last Taken Unknown] albuterol sulfate 2.5 mg INHALATION Q4H PRN #30 ml 10/19/17 [Rx Last Taken Unknown] ipratropium-albuterol 1 puff INHALATION 4X/DAY #1 inhaler 10/19/17 [Rx Last Taken Unknown] budesonide [Pulmicort] 0.5 mg INHALATION Q12H 12/26/20 [History Last Taken Unknown] ipratropium-albuterol [Combivent Respimat] INHALATION 12/26/20 [History Last Taken Unknown] Allergy/AdvReac Type Severity Reaction Status Date / Time No Known Allergies Allergy Verified 12/26/20 00:29 Family History Mother COPD (chronic obstructive pulmonary disease) Aunt COPD (chronic obstructive pulmonary disease) Father Cancer Lung COPD (chronic obstructive pulmonary disease) Pneumonia Surgical History H/O chest tube placement Social History Smoking Status: Former smoker Tobacco: How many years used: 20 how long ago did patient quit smokin, 1pk/day second hand exposure: Yes alcohol intake: current alcohol intake frequency: other Alcohol type: beer details: At least 612 ounce beers daily with last intake last evening substance use type: does not use ROS ROS ED Constitutional Constitutional ED: Denies chills or fever(s) Eyes Eyes: Denies change in vision ENT ENT ED: Denies ear pain or rhinorrhea Cardiovascular Cardiovascular: Reports chest pain; Denies palpitations Respiratory/Chest Respiratory/Chest: Reports cough, dyspnea and dyspnea on exertion Gastrointestinal Gastrointestinal: Reports abdominal pain, diarrhea, nausea and vomiting Genitourinary Genitourinary ED: Denies dysuria Musculoskeletal Musculoskeletal: Denies arthralgias or myalgias Integumentary Denies rash Neurologic Neurologic: Denies headache(s) or weakness Psychiatric Psychiatric: Denies depression EXAM Physical Exam Const Vital Signs: 12/26/20 00:25 12/26/20 00:33 12/26/20 00:44 Temperature 98.4 F Temperature Source Temporal Pulse Rate 117 H Respiratory Rate 18 Respiratory Effort Short of Breath Respiratory Pattern Tachypnea Blood Pressure 174/94 H Blood Pressure Mean 120 Pulse Ox 97 97 Oxygen Delivery Method Room Air CPAP Fraction of Inspired Oxygen (FIO2) 30 12/26/20 00:58 12/26/20 02:33 12/26/20 03:31 Temperature Temperature Source Pulse Rate 112 H 103 H 108 H Respiratory Rate 18 18 Respiratory Effort Respiratory Pattern Normal Blood Pressure 176/89 H Blood Pressure Mean 118 Pulse Ox 98 97 Oxygen Delivery Method Room Air Fraction of Inspired Oxygen (FIO2) Positive cachectic and unkempt General Appearance ED: unkempt and cachectic Nutritional Appearance: cachectic HEENT Reports dry mucous membranes atraumatic Mouth ED: Yes dry mucous membranes Mouth: dry mucous membranes Eyes PERRL and EOMs intact bilaterally Neck supple and no JVD Resp Resp Narrative: Partially breathing. Patient is diminished breath sounds but does have airflow in all lung roland. And expiratory wheezing at the bases Cardio regular rhythm and no murmurs Rate: tachycardic GI Auscultation: normoactive bowel sounds Palpation: soft and tender epigastric; Negative for guarding or rebound te nderness present Extremity normal to inspection General Extremety ED: Negative for edema or tenderness General Extremity: Negative for edema Neuro oriented x3, CN's II-XII intact bilaterally and no sensory deficits noted Sensorium / Orientation: alert Motor Exam: strength 5/5 throughout Psych mental status grossly normal Appearance: unkempt Thought Process: normal thought process Skin Lesions: no lesions Rashes: no rashes MDM MDM MDM Narrative Medical decision making narrative: Patient evaluated for worsening shortness of breath associated chest pain. Patient appears chronically ill but no acute distress. He is requiring supplemental oxygen but that appears to be his baseline. He is tachycardic and hypertensive. He is given a breathing treatment as well as Solu-Medrol as I am concerned he could be having a COPD exacerbation. He does not appear to be fluid overloaded in fact has hyponatremia. Creatinine is at his baseline. CBC is unremarkable. Belly labs and CT of abdomen pelvis not show any acute process. His lactate is normal at 1.4. His BNP is normal at 22.4. CT does show findings consistent with diarrhea but no other acute inflammatory infectious process. Given his tachycardia and shortness of breath I did obtain a D-dimer which is elevated. CTA does not show any acute PE or other acute process. Patient be admitted for hyponatremia and likely COPD exacerbation. He is agreeable this plan of care. Lab Data Attestation: I reviewed the patient's lab results. Labs: Laboratory Results - last 24 hr 12/26/20 12/26/20 12/26/20 00:29 00:29 00:29 WBC 10.1 RBC 4.22 L Hgb 13.4 Hct 39.6 L MCV 93.8 MCH 31.8 MCHC 33.8 RDW Std Deviation 43.8 RDW Coeff of Sherri 12.6 Plt Count 274 MPV 8.7 Immature Gran % (Auto) 0.500 Neut % (Auto) 63.8 Lymph % (Auto) 17.9 L [place] % (Auto) 9.3 Eos % (Auto) 7.6 H Baso % (Auto) 0.9 Absolute Neuts (auto) 6.4 Absolute Lymphs (auto) 1.80 Nucleated RBC % 0 D-Dimer Quant (PE/DVT) 1.22 H* Sodium 123 L Potassium 4.3 Chloride 81 L Carbon Dioxide 31.0 Anion Gap 11 BUN 4 L Creatinine 0.58 L Estim Creat Clear Calc 112.04 Est GFR (MDRD) Af Amer 184 Est GFR (MDRD) Non-Af 152 BUN/Creatinine Ratio 6.8 L Glucose 93 Lactic Acid Calcium 8.9 Total Bilirubin 0.70 Direct Bilirubin 0.24 AST 47 H ALT 33 Alkaline Phosphatase 62 Troponin I High Sens 12 B-Natriuretic Peptide Total Protein 8.0 Albumin 3.8 Globulin 4.2 Albumin/Globulin Ratio 0.9 Lipase 59 L Urine Color Urine Clarity Urine pH Ur Specific [place] Urine Protein Urine Glucose (UA) Urine Ketones Urine Occult Blood Urine Nitrite Urine Bilirubin Urine Urobilinogen Ur Leukocyte Esterase Urine RBC Urine WBC Ur Squamous Epith Cells Urine Bacteria Urine Mucus 12/26/20 12/26/20 12/26/20 00:29 00:56 02:06 WBC RBC Hgb Hct MCV MCH MCHC RDW Std Deviation RDW Coeff of Sherri Plt Count MPV Immature Gran % (Auto) Neut % (Auto) Lymph % (Auto) [place] % (Auto) Eos % (Auto) Baso % (Auto) Absolute Neuts (auto) Absolute Lymphs (auto) Nucleated RBC % D-Dimer Quant (PE/DVT) Sodium Potassium Chloride Carbon Dioxide Anion Gap BUN Creatinine Estim Creat Clear Calc Est GFR (MDRD) Af Amer Est GFR (MDRD) Non-Af BUN/Creatinine Ratio Glucose Lactic Acid 1.4 Calcium Total Bilirubin Direct Bilirubin AST ALT Alkaline Phosphatase Troponin I High Sens B-Natriuretic Peptide 22.4 Total Protein Albumin Globulin Albumin/Globulin Ratio Lipase Urine Color Yellow Urine Clarity Clear Urine pH 6.0 Ur Specific [place] 1.015 Urine Protein 30 H Urine Glucose (UA) Normal Urine Ketones 15 H Urine Occult Blood Negative Urine Nitrite Negative Urine Bilirubin Negative Urine Urobilinogen Normal Ur Leukocyte Esterase Negative Urine RBC 0 SEEN Urine WBC 0 SEEN Ur Squamous Epith Cells 0 SEEN Urine Bacteria RARE Urine Mucus 0 SEEN Radiography Chest X-Ray - ED: 1 View, Read by ED Physician, Read by Radiologist and No Infiltrates Diagnostic Testing: Clinical Impression(s) from Imaging Studies Abdomen/Pelvis CT 12/26/20 00:48 IMPRESSION: There is fluid in the colon suggesting diarrhea. ASSESSMENT: ABNORMAL report - There are abnormal findings in this report which may be related or unrelated to the reason for the exam. Electronically Signed: Tahir Feng MD at 3:07 EDT Tel , Service support , Chest X-Ray 12/26/20 00:48 IMPRESSION: No acute cardiopulmonary disease. Electronically Signed: Roxana Rabago MD at 1:43 EDT , Service support , Chest CTA 12/26/20 01:16 IMPRESSION: No pulmonary embolism is identified. Motion artifact limits evaluation of the distal pulmonary arteries. ASSESSMENT: INCIDENTAL report - The findings in this report are either known or are not significant. Electronically Signed: Tahir Feng MD at 3:04 EDT Tel , Service support , Rhythm Strip Rhythm Strip: Sinus Tach Rate: 113 Ectopy: None EKG Initial EKG: Attestation: I personally reviewed and interpreted this EKG as follows: Interpretation: Sinus Tachycardia Comments: Sinus tachycardia at a rate of 113 with short MA interval MA interval is 96 Normal QRS and QTc Normal axis Normal ST segments Discharge Plan Triage Chief Complaint: Shortness of Breath ED Provider: Mora Acharya Dx/Rx/DC Orders Clinical Impression: COPD exacerbation, Hyponatremia, Nausea & vomiting, Diarrhea Primary Care Provider: Ketan Peralta Disposition Disposition: Acute Care [facility] Discharge Date/Time: 12/26/20 05:25
[2020-12-26] MEDS: 0.9% Saline Lock 10 ML Syringe IV (06:00)
[2020-12-26] MEDS: hydrALAZINE 20 MG/ML Vial 10 MG IV (06:00)
[2020-12-26] MEDS: 0.9% Normal Saline 1,000 ML 100 ML IV ×2 (06:00→15:25)
[2020-12-26] MEDS: LORazepam 2 MG/ML Syringe IV (06:00)
--- NOTE | 2020-12-26 06:10 | PCS.PANDOC ---
PANDEMIC DOCUMENTATION INITIATED: Date: 11/01/2020 Time: 190
[2020-12-26 07:26] LABS: Absolute Lymphocyte Count 0.36 X10^3/uL (0.83-4.51); Absolute Neutrophil Count 7.9 X10^3/uL (2.0-7.7); Basophil# 0.06 X10^3/uL; Basophil% 0.7 % (0-1); Eosinophils% 1.2 % (0-5); Hematocrit 38.1 % (40-54); Hemoglobin 12.8 g/dL (13.0-16.5); Lymphocyte # 0.36 X10^3/ul (0.83-4.51); Lymphocyte % 4.2 % (19-41); Mean Corp Hgb Conc 33.6 g/dL (32-36); Mean Corpuscular Hgb 31.3 pg (27.0-32.0); Mean Corpuscular Volume 93.2 fL (80-94); Mean Platelet Vol. 8.5 fl (6.2-12.0); Monocyte# 0.24 X10^3/uL; Monocyte% 2.8 % (0-10); NRBC Flagged by Analyzer 0 % (0-5); Neutrophil # 7.87 X10^3/uL (2.7-7.7); Neutrophil % 90.6 % (47-70); POSITIVE DIFFERENTIAL YES; Platelet Count 249 K/mm3 (150-450); RBC Distribution Width CV 12.7 % (11.6-14.6); RBC Distribution Width SD 43.6 fl (35.1-43.9); Red Blood Count 4.09 M/mm3 (4.6-6.2); White Blood Count 8.7 K/mm3 (4.4-11.0)
[2020-12-26 07:32] LABS: Differential Indicated SCAN CRITERIA MET
[2020-12-26 07:46] LABS: ALB/GLOB Ratio 0.9 RATIO (0.9-2.4); AST(SGOT) 41 U/L (15-37); Alanine Aminotransfer ALT/SGPT 32 U/L (16-61); Albumin, Serum 3.4 g/dL (3.2-5.0); Alkaline Phosphatase 59 U/L (45-117); Anion Gap 11 (5-15); BUN 5 mg/dL (7-18); BUN/Creat Ratio 8.3 RATIO (10-20); Calcium,Total 8.7 mg/dL (8.5-10.1); Chloride 83 mmol/L (98-107); EST Glomerular Filtration Rate 147 mL/min (>60); Est Glom Filt Rate - Afr Amer 178 mL/min (>60); Estimated Creatinine Clearance 102.28 ml/min; Globulin 3.9 g/dL (2.2-4.2); Glucose 89 mg/dL (74-106); Magnesium 1.9 mg/dL (1.6-2.6); Phosphorus 2.9 mg/dL (2.5-4.9); Potassium 5.1 mmol/L (3.5-5.1); Protein, Total 7.3 g/dL (6.4-8.2); Sodium Level 123 mmol/L (136-145)
--- NOTE | 2020-12-26 08:04 | PCM.PN.HOSP ---
Objective Data Objective Data Vital Signs: Vital Signs Temp Pulse Resp BP Pulse Ox 98.1 F 109 H 20 H 140/79 H 98 12/26/20 05:43 12/26/20 06:00 12/26/20 05:43 12/26/20 06:14 12/26/20 05:43 Oxygen Flow Rate (L/min) 4 Oxygen Delivery Method Nasal Cannula Weight: 115 lb 15.41 oz Body Mass Index (BMI) 18.7 Intake & Output: Intake and Output for Last 24 Hours 12/24/20 12/25/20 12/26/20 23:59 23:59 23:59 Intake Total 500 / 500 Output Total 200 / 200 Balance 300 / 300 Lab / Micro Data Result Diagrams: 12/26/20 07:08 12/26/20 07:08 Labs: Laboratory Results - last 24 hr 12/26/20 00:29: WBC 10.1, RBC 4.22 L, Hgb 13.4, Hct 39.6 L, MCV 93.8, MCH 31.8, MCHC 33.8, RDW Std Deviation 43.8, RDW Coeff of Sherri 12.6, Plt Count 274, MPV 8.7, Immature Gran % (Auto) 0.500, Neut % (Auto) 63.8, Lymph % (Auto) 17.9 L, [place] % (Auto) 9.3, Eos % (Auto) 7.6 H, Baso % (Auto) 0.9, Absolute Neuts (auto) 6.4, Absolute Lymphs (auto) 1.80, Nucleated RBC % 0 12/26/20 00:29: D-Dimer Quant (PE/DVT) 1.22 H* 12/26/20 00:29: Sodium 123 L, Potassium 4.3, Chloride 81 L, Carbon Dioxide 31.0, Anion Gap 11, BUN 4 L, Creatinine 0.58 L, Estim Creat Clear Calc 112.04, Est GFR (MDRD) Af Amer 184, Est GFR (MDRD) Non-Af 152, BUN/Creatinine Ratio 6.8 L, Glucose 93, Calcium 8.9, Total Bilirubin 0.70, Direct Bilirubin 0.24, AST 47 H, ALT 33, Alkaline Phosphatase 62, Troponin I High Sens 12, Total Protein 8.0, Albumin 3.8, Globulin 4.2, Albumin/Globulin Ratio 0.9, Lipase 59 L 12/26/20 00:29: B-Natriuretic Peptide 22.4 12/26/20 00:56: Lactic Acid 1.4 12/26/20 02:06: Urine Color Yellow, Urine Clarity Clear, Urine pH 6.0, Ur Specific [place] 1.015, Urine Protein 30 H, Urine Glucose (UA) Normal, Urine Ketones 15 H, Urine Occult Blood Negative, Urine Nitrite Negative, Urine Bilirubin Negative, Urine Urobilinogen Normal, Ur Leukocyte Esterase Negative, Urine RBC 0 SEEN, Urine WBC 0 SEEN, Ur Squamous Epith Cells 0 SEEN, Urine Bacteria RARE, Urine Mucus 0 SEEN 12/26/20 07:08: WBC 8.7, RBC 4.09 L, Hgb 12.8 L, Hct 38.1 L, MCV 93.2, MCH 31.3, MCHC 33.6, RDW Std Deviation 43.6, RDW Coeff of Sherri 12.7, Plt Count 249, MPV 8.5, Immature Gran % (Auto) 0.500, Neut % (Auto) 90.6 H, Lymph % (Auto) 4.2 L, [place] % (Auto) 2.8, Eos % (Auto) 1.2, Baso % (Auto) 0.7, Absolute Neuts (auto) 7.9 H, Absolute Lymphs (auto) 0.36 L, Nucleated RBC % 0 12/26/20 07:08: Sodium 123 L, Potassium 5.1, Chloride 83 L, Carbon Dioxide 29.0, Anion Gap 11, BUN 5 L, Creatinine 0.60 L, Estim Creat Clear Calc 102.28, Est GFR (MDRD) Af Amer 178, Est GFR (MDRD) Non-Af 147, BUN/Creatinine Ratio 8.3 L, Glucose 89, Calcium 8.7, Phosphorus 2.9, Magnesium 1.9, Total Bilirubin 0.80, AST 41 H, ALT 32, Alkaline Phosphatase 59, Total Protein 7.3, Albumin 3.4, Globulin 3.9, Albumin/Globulin Ratio 0.9 Micro: Microbiology 12/26/20 00:07 Nasal Secretion SARS-CoV-2 Antigen (Rapid) - Final Radiography Diagnostic Testing: Radiology Impression Abdomen/Pelvis CT 12/26/20 00:48 IMPRESSION: There is fluid in the colon suggesting diarrhea. ASSESSMENT: ABNORMAL report - There are abnormal findings in this report which may be related or unrelated to the reason for the exam. Electronically Signed: Tahir Feng MD at 3:07 EDT Tel , Service support , Chest X-Ray 12/26/20 00:48 IMPRESSION: No acute cardiopulmonary disease. Electronically Signed: Roxana Rabago MD at 1:43 EDT , Service support , Chest CTA 12/26/20 01:16 IMPRESSION: No pulmonary embolism is identified. Motion artifact limits evaluation of the distal pulmonary arteries. ASSESSMENT: INCIDENTAL report - The findings in this report are either known or are not significant. Electronically Signed: Tahir Feng MD at 3:04 EDT Tel , Service support , Rhythm Strip Rhythm Strip: Sinus Tach Rate: 113 Ectopy: None Assessment & Plan Assessment/Plan (1) Acute and chronic respiratory failure with hypercapnia: (2) COPD exacerbation: (3) Hyponatremia: (4) Nausea & vomiting: (5) Diarrhea: (6) Alcohol abuse: (7) D-dimer, elevated: (8) Severe malnutrition: PLAN: Acute on chronic hypoxic respiratory failure with hypercapnia secondary to acute exacerbation of COPD -Supplemental oxygen to keep oxygen saturations greater than 88% -No signs of infectious etiology at this time and no change in cough or sputum production -Check strep pneumo and Legionella antigens -Check viral respiratory PCR -Incentive spirometry/Acapella -Pulmonary toilet -Solu-Medrol 40 every 8 -Recommend follow-up with outpatient pulmonary after discharge Hyponatremia -Suspect this is hypovolemic hyponatremia with decreased p.o. intake over the last 3 days, nausea, vomiting, diarrhea -We will run IV fluids at 100 an hour x2 L -Check TSH -If no improvement in sodium with fluid correction then would pursue further work-up with osmolality studies and urine lites -Beer potomania also may be a contributory factor Nausea/vomiting/diarrhea -Antiemetics available -Check enteric stool -Check C. difficile D-dimer elevation -CTA was performed and negative for PE Alcohol abuse -Patient denies ever having withdrawal -Drinks at least 6 12 ounce beers daily with his last drink being last evening -We will initiate CIWA protocol with as needed Ativan availability -Thiamine 200 mg daily x3 days -Folic acid supplementation -Multivitamin Severe malnutrition -Dietitian to see patient in consultation -[place] diet -Ensure supplementation COPD -Hold home budesonide at this time restart on discharge -As needed nebulizers -Needs continued pulmonary follow-up as an outpatient -Patient has remote history of tobacco abuse but no longer smokes Hypertension -Continue lisinopril -As needed hydralazine available for systolic blood pressure greater than 160 Hyperlipidemia -Continue pravastatin DVT prophylaxis -Lovenox daily -SCDs CODE STATUS -DNR CCA with no intubation as per discussion with patient and his in the emergency department upon admission
[2020-12-26] MEDS: Multivitamins,Ther W-Minerals Tablet 1 TABLET PO (08:54)
[2020-12-26] MEDS: Thiamine Hydrochloride 100 MG Tablet PO ×2 (08:54→17:48)
[2020-12-26] MEDS: Folic Acid 1 MG Tablet PO (08:54)
[2020-12-26] MEDS: Aspirin 81 MG TAB.CHEW PO (08:54)
--- NOTE | 2020-12-26 08:57 | CPS ---
PATIENT REFUSED AEROSOL TREATMENT AFTER 1 MINUTE. PATIENT EXPLAINED IMPORTANCE OF MEDICATION/ DOCTOR ORDERED. PATIENT STILL REFUSED.
--- NOTE | 2020-12-26 08:58 | CPS ---
PATIENT REFUSED AT TIME OF VISIT. DEVICE AT BEDSIDE.
--- NOTE | 2020-12-26 08:59 | CPS ---
PATIENT REFUSED AT TIME OF VISIT. DEVICE AT BEDSIDE.
--- NOTE | 2020-12-26 09:21 | CPS ---
PRN FOR WHEEZES.
[2020-12-26] MEDS: Enoxaparin 40 MG/0.4 ML Syringe SC (10:29)
[2020-12-26] MEDS: Lisinopril 20 MG Tablet PO (10:30)
[2020-12-26] MEDS: guaiFENesin 1,200 MG Tablet 1200 MG PO ×2 (10:30→20:45)
--- NOTE | 2020-12-26 14:51 | PN.HOSP_ITS ---
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 Patient incentive spirometry and Pep. On Solu- Medrol, bronchodilator. Patient in sinus tachycardia. PFT shows partially reversible very severe large airway ventilatory defect with air trapping and hyperinflation. CTA chest shows no PE but scarring in the upper lobes.
--- NOTE | 2020-12-26 14:51 | PCM.HOSP.N ---
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 Patient incentive spirometry and Pep. On Solu-Medrol, bronchodilator. Patient in sinus tachycardia. PFT shows partially reversible very severe large airway ventilatory defect with air trapping and hyperinflation. CTA chest shows no PE but scarring in the upper lobes.
[2020-12-26] MEDS: Pravastatin 20 MG Tablet PO (20:46)
[2020-12-27] VITALS (10 sets, daily range): BP systolic 136–159; BP diastolic 87–96; PULSE 64–113; RESP 16–24; TEMP 36.4–36.9; O2SAT 96–100
[2020-12-27] MEDS: Ipratropium/Albuterol Sulfate 3 ML AMPUL.NEB INHALATION ×4 (03:16→15:55)
[2020-12-27] MEDS: 0.9% Saline Lock 10 ML Syringe IV ×3 (05:29→21:34)
[2020-12-27] MEDS: Lisinopril 20 MG Tablet PO (08:28)
[2020-12-27] MEDS: Thiamine Hydrochloride 100 MG Tablet PO ×2 (08:28→17:06)
[2020-12-27] MEDS: guaiFENesin 1,200 MG Tablet 1200 MG PO ×2 (08:28→21:34)
[2020-12-27] MEDS: Aspirin 81 MG TAB.CHEW PO (08:28)
[2020-12-27] MEDS: Folic Acid 1 MG Tablet PO (08:28)
[2020-12-27] MEDS: Multivitamins,Ther W-Minerals Tablet 1 TABLET PO (08:28)
[2020-12-27] MEDS: Enoxaparin 40 MG/0.4 ML Syringe SC (08:29)
--- NOTE | 2020-12-27 10:30 | CASEMGMT ---
MADIHA HARRINGTON Face to Face with patient for initial transition planning/care coordination assessment. RN CM introduced self and role at [facility]. Patient lying in bed, alert and oriented. Patient willing to participate in assessment and is able to answer all questions appropriately. Care providers, pharmacy, and demographics verified. Patient wishes to discharge home and would like HHC at discharge, discussed options of HHC with patient and prefers [facility]. Patient states he has no further needs or concerns at this time. CM to follow for discharge planning needs that may arise. PCP: Kathryn Specialists: Kalen business development engineer Preferred Pharmacy: [facility] Insurance: [employer] Prescription Benefit: yes Living Will/HPOA: none LNOK: Living Arrangements: Patient lives with and nephew in a single story home with 1 step to enter the home. Patient states he is normally independent at home. Transportation: /nephew DME/HHC: Patient has shower chair, walker, rollator, nebulizer, oxygen at 3 lpm through [employer] with portable concentrator and tank. Patient denies previous HHC. Disposition Plan: Patient to discharge home with HHC, family support, and follow-up plans in place. Alyssa BLANCO, RN, CM
--- NOTE | 2020-12-27 16:38 | PN.HOSP_ITS ---
Subjective Subjective Patient is still very short of breath. Denies chest pain but has chest tightness all around. Objective Data Objective Data Vital Signs: Vital Signs Temp Pulse Resp BP Pulse Ox 97.5 F L 107 H 18 159/89 H 97 12/27/20 15:12 12/27/20 15:55 12/27/20 15:55 12/27/20 15:12 12/27/20 15:55 Oxygen Flow Rate (L/min) 3 Oxygen Delivery Method Nasal Cannula Weight: 115 lb 15.41 oz Body Mass Index (BMI) 18.7 Intake & Output: Intake and Output for Last 24 Hours 12/25/20 12/26/20 12/27/20 23:59 23:59 23:59 Intake Total 2041.67 / 2041.67 1300 / 1300 Output Total 650 / 950 775 / 775 Balance 1391.67 / 1091.67 525 / 525 Lab / Micro Data Result Diagrams: 12/26/20 07:08 12/26/20 07:08 Micro: Microbiology 12/26/20 05:50 Mucosa - Nasopharyngeal Respiratory Panel (PCR) - Final 12/26/20 00:07 Nasal Secretion SARS-CoV-2 Antigen (Rapid) - Final Rhythm Strip Rhythm Strip: Sinus Tach Rate: 113 Ectopy: None Physical Exam Narrative General: Alert, Oriented x3, Cooperative. Visibly short of breath HEENT: Atraumatic, PERRLA, EOMI, Normocephalic Oral: No Gingival or Mucosal Lesions/ Ulcerations Neck: Supple, No JVD, Negative Carotid Bruits Lungs: Air entry severely diminished. Bilateral expiratory wheezing and rhonchi. Dyspnea at rest. Cardiovascular: Sinus tachycardia, Normal S1, Normal S2, No murmurs Abdomen: Bowel Sounds Present, Soft, Non Tender, Non-Distended : No renal angle tenderness. No suprapubic tenderness. Extremities: No edema, Capillary Refill Less than 3 Seconds Skin: No rashes, No breakdown Musculoskeletal: No Tenderness to Palpation of Joints or Extremities Neurological: Cranial nerves II-XII grossly intact, DTR 2+/4 and Symmetrical, Neuro grossly intact Psych/Mental Status: Normal Affect, Appropriate. Assessment & Plan Assessment/Plan (1) Acute and chronic respiratory failure with hypercapnia: (2) COPD exacerbation: (3) Hyponatremia: (4) Nausea & vomiting: (5) Diarrhea: (6) Alcohol abuse: (7) D-dimer, elevated: (8) Severe malnutrition: PLAN: Acute on chronic hypoxic respiratory failure with hypercapnia secondary to acute exacerbation of COPD: Patient on supplemental oxygen. Respiratory panel is n egative. Urinary antigens ordered. With incentive spirometry, IV Solu-Medrol and scheduled bronchodilator. -Supplemental oxygen to keep oxygen saturations greater than 88%. Oxygen therapy Hypotonic hypovolemic hyponatremia: Patient had 3 days of nausea vomiting and diarrhea. Stool for C. difficile and enteric bacteriology panel are ordered. Not been collected yet. -Beer potomania from low solute intake also may be a contributory factor D-dimer elevation -CTA was performed and negative for PE Alcohol abuse: Patient drinks 6 bottles of 12 ounces beer daily. -Patient denies ever having withdrawal -l = CIWA protocol with as needed Ativan availability -Thiamine 200 mg daily x3 days -Folic acid supplementation -Multivitamin Severe malnutrition -Dietitian to see patient in consultation -[place] diet -Ensure supplementation COPD -Hold home budesonide at this time restart on discharge -As needed nebulizers -Needs continued pulmonary follow-up as an outpatient -Patient has remote history of tobacco abuse but no longer smokes Hypertension -Continue lisinopril -As needed hydralazine available for systolic blood pressure greater than 160 Hyperlipidemia -Continue pravastatin DVT prophylaxis -Lovenox daily -SCDs CODE STATUS -DNR CCA with no intubation as per discussion with patient and his in the emergency department upon admission by admitting hospitalist. Charges/Coding Visit Charges Inpatient E&M: 03943 Subs Hosp L2
[2020-12-27] MEDS: Ondansetron 4 MG/2 ML Vial IV (19:00)
[2020-12-27] MEDS: LORazepam 1 MG Tablet 2 MG PO (19:00)
--- NOTE | 2020-12-27 19:53 | NURSING ---
Pt laying in bed. Oxygen at 3L via n/c. No distress noted.
[2020-12-27] MEDS: Pravastatin 20 MG Tablet PO (21:34)
[2020-12-28] VITALS (14 sets, daily range): BP systolic 134–157; BP diastolic 73–85; PULSE 88–109; RESP 16–22; TEMP 36.4–36.9; O2SAT 94–98
[2020-12-28] MEDS: Acetaminophen 325 MG Tablet 650 MG PO ×2 (02:13→18:46)
[2020-12-28] MEDS: Ipratropium/Albuterol Sulfate 3 ML AMPUL.NEB INHALATION ×4 (02:34→18:56)
[2020-12-28] MEDS: 0.9% Saline Lock 10 ML Syringe IV ×3 (06:02→10:10)
[2020-12-28] MEDS: Enoxaparin 40 MG/0.4 ML Syringe SC (08:13)
[2020-12-28] MEDS: Multivitamins,Ther W-Minerals Tablet 1 TABLET PO (08:14)
[2020-12-28] MEDS: Aspirin 81 MG TAB.CHEW PO (08:14)
[2020-12-28] MEDS: Folic Acid 1 MG Tablet PO (08:14)
[2020-12-28] MEDS: guaiFENesin 1,200 MG Tablet 1200 MG PO ×2 (08:14→21:53)
[2020-12-28] MEDS: Lisinopril 20 MG Tablet PO (08:14)
[2020-12-28] MEDS: Thiamine Hydrochloride 100 MG Tablet PO ×2 (08:15→18:32)
[2020-12-28] MEDS: Magnesium Chloride 64 MG Delay Rel.Tablet 128 MG PO ×2 (10:10→21:53)
[2020-12-28] MEDS: Dextrose 5%/0.9% NaCl 1,000 ML 100 ML IV ×2 (10:10→21:52)
[2020-12-28] MEDS: Phenobarbital 32.4 MG Tablet 97.2 MG PO ×4 (10:47→21:54)
[2020-12-28 11:02] LABS: International Normalized Ratio 1.1; Prothrombin Time (Protime)PT. 13.2 SECONDS (11.7-14.9)
[2020-12-28 11:23] LABS: ALB/GLOB Ratio 0.8 RATIO (0.9-2.4); AST(SGOT) 27 U/L (15-37); Alanine Aminotransfer ALT/SGPT 24 U/L (16-61); Alkaline Phosphatase 47 U/L (45-117); Anion Gap 3 (5-15); BUN 11 mg/dL (7-18); BUN/Creat Ratio 20.6 RATIO (10-20); Calcium,Total 8.8 mg/dL (8.5-10.1); Chloride 92 mmol/L (98-107); Creatinine, Serum 0.53 mg/dL (0.70-1.30); EST Glomerular Filtration Rate 169 mL/min (>60); Est Glom Filt Rate - Afr Amer 204 mL/min (>60); Estimated Creatinine Clearance 115.79 ml/min; Globulin 3.8 g/dL (2.2-4.2); Glucose 161 mg/dL (74-106); Magnesium 2.3 mg/dL (1.6-2.6); Potassium 4.3 mmol/L (3.5-5.1); Protein, Total 6.8 g/dL (6.4-8.2); Sodium Level 130 mmol/L (136-145)
--- NOTE | 2020-12-28 13:48 | PCM.PN.HOSP ---
Subjective Subjective In the morning when I saw patient was shaking, tremors, short of breath heart rate in 104, tachypnea suggestive of acute alcohol withdrawal syndrome. Patient drinks 6-7 bottles of beer every day. She denies any hallucination. Patient started on phenobarbital. Objective Data Objective Data Vital Signs: Vital Signs Temp Pulse Resp BP Pulse Ox 97.8 F 95 20 H 144/73 H 98 12/28/20 10:54 12/28/20 13:09 12/28/20 13:09 12/28/20 10:54 12/28/20 13:09 Oxygen Flow Rate (L/min) 3 Oxygen Delivery Method Nasal Cannula Weight: 115 lb 15.41 oz Body Mass Index (BMI) 18.7 Intake & Output: Intake and Output for Last 24 Hours 12/26/20 12/27/20 12/28/20 23:59 23:59 23:59 Intake Total 2041.67 / 2041.67 1650 / 1650 Output Total 650 / 950 975 / 1075 280 / 280 Balance 1391.67 / 1091.67 675 / 575 -280 / -280 Lab / Micro Data Result Diagrams: 12/26/20 07:08 12/28/20 10:45 Labs: Laboratory Results - last 24 hr 12/28/20 10:45: Sodium 130 L, Potassium 4.3, Chloride 92 L, Carbon Dioxide 35.0 H, Anion Gap 3 L, BUN 11, Creatinine 0.53 L, Estim Creat Clear Calc 115.79, Est GFR (MDRD) Af Amer 204, Est GFR (MDRD) Non-Af 169, BUN/Creatinine Ratio 20.6 H, Glucose 161 H, Calcium 8.8, Magnesium 2.3, Total Bilirubin 0.60, AST 27, ALT 24, Alkaline Phosphatase 47, Total Protein 6.8, Albumin 3.0 L, Globulin 3.8, Albumin/Globulin Ratio 0.8 L 12/28/20 10:45: PT 13.2, INR 1.1 Micro: Microbiology 12/27/20 22:08 Urine, Random Legionella Antigen - Final 12/27/20 22:08 Urine, Random Streptococcus pneumoniae Antigen (M - Final 12/26/20 05:50 Mucosa - Nasopharyngeal Respiratory Panel (PCR) - Final 12/26/20 00:07 Nasal Secretion SARS-CoV-2 Antigen (Rapid) - Final Rhythm Strip Rhythm Strip: Sinus Tach Rate: 113 Ectopy: None Physical Exam Narrative Physical exam: General: Lethargic, oriented x3, Cooperative. short of breath, shakings HEENT: Atraumatic, PERRLA, EOMI, Normocephalic Oral: No Gingival or Mucosal Lesions/ Ulcerations Neck: Supple, No JVD, Negative Carotid Bruits Lungs: Air entry severely diminished. Bilateral expiratory wheezing and rhonchi. Dyspnea better Cardiovascular: Sinus tachycardia, Normal S1, Normal S2, No murmurs Abdomen: Bowel Sounds Present, Soft, Non Tender, Non-Distended : No renal angle tenderness. No suprapubic tenderness. Extremities: No edema, Capillary Refill Less than 3 Seconds Skin: No rashes, No breakdown Musculoskeletal: No Tenderness to Palpation of Joints or Extremities Neurological: Cranial nerves II-XII grossly intact, DTR 2+/4 and Symmetrical, Neuro grossly intact Psych/Mental Status: Normal Affect, Appropriate. Assessment & Plan Assessment/Plan (1) Acute and chronic respiratory failure with hypercapnia: (2) COPD exacerbation: (3) Hyponatremia: (4) Nausea & vomiting: (5) Diarrhea: (6) Alcohol abuse: (7) D-dimer, elevated: (8) Severe malnutrition: PLAN: Acute on chronic hypoxic respiratory failure with hypercapnia secondary to acute exacerbation of COPD: Patient on supplemental oxygen. Respiratory panel is negative. Urinary antigens ordered. With incentive spirometry, IV Solu-Medrol and scheduled bronchodilator. -Supplemental oxygen to keep oxygen saturations about 90%. Oxygen therapy Hypotonic hypovolemic hyponatremia: Patient had 3 days of nausea vomiting and diarrhea. Stool for C. difficile and enteric bacteriology panel are ordered. Not been collected yet. -Beer potomania from low solute intake also may be a contributory factor 12/28: Serum sodium improved 130, chloride 92, bicarb 35. Anion gap 3. Transaminases normal. D-dimer elevation -CTA was performed and negative for PE Acute alcohol withdrawal syndrome during hospital course with history of chronic alcohol use and dependence: Patient drinks 6 -7bottles of 12 ounces beer daily. Patient is having active withdrawal syndrome with mild tachycardia, tachypnea, restlessness and anxiety. Patient has been on CIWA protocol and started on phenobarbital. Continue thiamine, folic acid and multivitamin. Denies prior history of seizure. Severe malnutrition -Dietitian to see patient in consultation -[place] diet -Ensure supplementation Acute COPD exacerbation, present on admission: Patient on bronchodilator, Solu-Medrol and oxygen therapy. Encourage bronchopulmonary hygiene. DC Solu-Medrol and transition to prednisone from tomorrow a.m. Hypertension -Continue lisinopril -As needed hydralazine available for systolic blood pressure greater than 160 Hyperlipidemia -Continue pravastatin DVT prophylaxis -Lovenox daily -SCDs CODE STATUS -DNR CCA with no intubation as per discussion with patient and his in the emergency department upon admission by admitting hospitalist. Charges/Coding Visit Charges Inpatient E&M: 29611 Subs Hosp L2
--- NOTE | 2020-12-28 14:34 | CASEMGMT ---
Social Work Note SW updated that pt is currently withdrawing from ETOH. Pt told physician he drinks 6-7 beers daily. SW in to speak with pt. SW introduced self and role at [facility]. Pt's Corinna present in room. Pt gave this worker permission to speak to him in front of his guest. SW spoke with pt about ETOH use. Pt states he drinks 6-7 regular size beer daily. SW asked pt if he wanted any ETOH resources/treatment options and pt denied. Pt denied additional needs or concerns at this time. Alyssa Kim [employer]TER [employer], EDITOR DEPARTMENT
--- NOTE | 2020-12-28 16:31 | CASEMGMT ---
Patient was provided a list of [facility] providers including quality and resource use data and consistent with the patient?s preferred geographic region, medical needs, and insurance network. Pt at bedside, they would like to review the list prior to making a decision. RN CM to check back on who is decided tomorrow.
[2020-12-28] MEDS: Dicyclomine 10 MG Capsule 20 MG PO (18:46)
[2020-12-28] MEDS: Pravastatin 20 MG Tablet PO (21:54)
[2020-12-29] VITALS (7 sets, daily range): BP systolic 140–144; BP diastolic 81–90; PULSE 88–93; RESP 16–24; TEMP 36.4–36.8; O2SAT 95–100
[2020-12-29] MEDS: Phenobarbital 32.4 MG Tablet 97.2 MG PO ×3 (02:51→10:37)
[2020-12-29 05:10] LABS: Absolute Lymphocyte Count 0.59 X10^3/uL (0.83-4.51); Absolute Neutrophil Count 4.4 X10^3/uL (2.0-7.7); Basophil# 0.01 X10^3/uL; Basophil% 0.2 % (0-1); Eosinophil# 0.03 X10^3/uL; Eosinophils% 0.5 % (0-5); Lymphocyte # 0.59 X10^3/ul (0.83-4.51); Lymphocyte % 10.6 % (19-41); Mean Corp Hgb Conc 31.4 g/dL (32-36); Mean Corpuscular Hgb 31.3 pg (27.0-32.0); Mean Corpuscular Volume 99.7 fL (80-94); Mean Platelet Vol. 8.3 fl (6.2-12.0); Monocyte# 0.53 X10^3/uL; Monocyte% 9.5 % (0-10); NRBC Flagged by Analyzer 0 % (0-5); Neutrophil # 4.38 X10^3/uL (2.7-7.7); Neutrophil % 78.8 % (47-70); POSITIVE DIFFERENTIAL YES; Platelet Count 185 K/mm3 (150-450); RBC Distribution Width CV 13.2 % (11.6-14.6); RBC Distribution Width SD 48.7 fl (35.1-43.9); Red Blood Count 3.51 M/mm3 (4.6-6.2); White Blood Count 5.6 K/mm3 (4.4-11.0)
[2020-12-29 05:34] LABS: Differential Indicated SCAN CRITERIA MET
[2020-12-29 05:40] LABS: Anion Gap 2 (5-15); BUN 8 mg/dL (7-18); BUN/Creat Ratio 21.1 RATIO (10-20); Calcium,Total 8.1 mg/dL (8.5-10.1); Chloride 101 mmol/L (98-107); Creatinine, Serum 0.38 mg/dL (0.70-1.30); EST Glomerular Filtration Rate 251 mL/min (>60); Est Glom Filt Rate - Afr Amer 304 mL/min (>60); Estimated Creatinine Clearance 161.49 ml/min; Glucose 108 mg/dL (74-106); Phosphorus 1.4 mg/dL (2.5-4.9); Potassium 3.9 mmol/L (3.5-5.1); Sodium Level 137 mmol/L (136-145)
[2020-12-29 05:44] LABS: Differential Comment SCANNED
[2020-12-29] MEDS: Dextrose 5%/0.9% NaCl 1,000 ML 100 ML IV (05:53)
[2020-12-29] MEDS: Ipratropium/Albuterol Sulfate 3 ML AMPUL.NEB INHALATION ×3 (07:36→15:11)
[2020-12-29] MEDS: Lisinopril 20 MG Tablet PO (08:13)
[2020-12-29] MEDS: Multivitamins,Ther W-Minerals Tablet 1 TABLET PO (08:13)
[2020-12-29] MEDS: Magnesium Chloride 64 MG Delay Rel.Tablet 128 MG PO (08:13)
[2020-12-29] MEDS: predniSONE 20 MG Tablet 40 MG PO (08:13)
[2020-12-29] MEDS: Folic Acid 1 MG Tablet PO (08:14)
[2020-12-29] MEDS: guaiFENesin 1,200 MG Tablet 1200 MG PO (08:14)
[2020-12-29] MEDS: Enoxaparin 40 MG/0.4 ML Syringe SC (08:14)
[2020-12-29] MEDS: Aspirin 81 MG TAB.CHEW PO (08:14)
--- NOTE | 2020-12-29 10:24 | CASEMGMT ---
Addendum entered by Brenda Ward 12/29/20 15:09: Pt being discharged home. TC to [facility] and she is aware. Addendum entered by Brenda Ward 12/29/20 12:54: TC received back from [facility]. They are able to accept pt w/SOC on Sunday. Original Note: RN JUANY NOTE: RN CM to room to talk w/pt re: HHC and preference of agency. Pt states his has the information and asked for MADIHA HARRINGTON to contact his re: her preference. TC to pt's , Corinna. She states 1st preference is [facility] and 2nd is [facility]. TC to [facility] and referral made. Awaiting acceptance. Pt also provided list of Private duty aides. Griselda BLANCO RN, CM
--- NOTE | 2020-12-29 14:18 | PCM.DC ---
Discharge Instructions Diet Discharge Diet: No restrictions Activity Discharge Activity: Return to Normal Activity Weight Bearing Status: Full weight bearing Follow Up Care Test Results: Test results from this visit will be discussed in further detail at your follow-up appointment, if applicable. Discharge Plan Admission Admit Date/Time: 12/26/20 03:56 Primary Reason for Your Visit: exacerbation of COPD Attending Provider: Chris Briscoe Primary Care Provider: Ketan Peralta Instructions Additional Instructions / Restrictions: Remain on home oxygen at your home setting Do not drink alcohol Discharge Orders/Prescriptions Prescriptions: New prednisone 20 mg Tablet 40 mg PO BREAKFAST Qty: 14 RF: 0 Continued pravastatin 10 MG tablet 20 mg PO QHS RF: 0 lisinopril 20 MG tablet 20 mg PO DAILY Qty: 30 RF: 0 aspirin 81 MG tablet,chewable 81 mg PO DAILY@0800 RF: 0 albuterol sulfate 2.5 mg /3 mL (0.083 %) solution for nebulization 2.5 mg INHALATION Q4H PRN (Reason: shortness of breath or wheezing) Qty: 30 RF: 1 albuterol sulfate 1 INHALER inhaler 2 puff INHALATION Q4H PRN PRN (Reason: Shortness Of Breath) Qty: 1 RF: 2 budesonide [Pulmicort] 0.5 mg/2 mL suspension for nebulization 0.5 mg INHALATION Q12H Qty: 60 RF: 0 Changed Combivent Respimat 20-100 mcg/actuation mist 1 puff INHALATION 4X/DAY Qty: 0 RF: 0 Discontinued ipratropium-albuterol 1 PUFF inhaler 1 puff INHALATION 4X/DAY Qty: 1 RF: 2 Referrals / Follow Up: Lee Higuera MD [STAFF PHYSICIAN] - Within 1 Month Ketan Peralta MD [Primary Care Provider] - Within 2 Weeks Disposition Disposition (needs filled in before D/C Order can be placed): Home, Self Care
--- NOTE | 2020-12-30 14:56 | CASEMGMT ---
MADIHA HARRINGTON Discharge Follow Up Phone Call: DENNIS: Sachin Strata:3 Call Date: 12/30/20 Discharge Date: 12/29/20 Time of Call:[id number] Duration:<1 min Admitting Dx:COPD exac MADIHA HARRINGTON attempted to complete follow up phone call after recent hospitalization, no answer to unidentified voicemail. No message left.
--- NOTE | 2020-12-30 19:27 | DS.PCM_ITS ---
Providers Date of Admission: 12/26/20 Date of Discharge: 12/29/20 Primary Care Physician: Dr. Ketan Peralta MD Reason For Visit: ACUTE EXACERBATION OF COPD Diagnosis Discharge Diagnosis (1) Acute and chronic respiratory failure with hypercapnia: Status: Acute Code(s): J96.22 - Acute and chronic respiratory failure with hypercapnia (2) COPD exacerbation: Status: Acute Code(s): J44.1 - Chronic obstructive pulmonary disease with (acute) exacerbation (3) Hyponatremia: Status: Acute Code(s): E87.1 - Hypo-osmolality and hyponatremia (4) Nausea & vomiting: Status: Acute Code(s): R11.2 - Nausea with vomiting, unspecified (5) Diarrhea: Status: Acute Code(s): R19.7 - Diarrhea, unspecified (6) Alcohol abuse: Status: Chronic Code(s): F10.10 - Alcohol abuse, uncomplicated (7) D-dimer, elevated: Status: Acute Code(s): R79.89 - Other specified abnormal findings of blood chemistry (8) Severe malnutrition: Status: Acute Code(s): E43 - Unspecified severe protein-calorie malnutrition Plan: Discharge diagnosis: #1 acute on chronic hypoxic respiratory failure with hypercapnia secondary to acute exacerbation of COPD #2 acute exacerbation of COPD #3 hypotonic hypovolemic hyponatremia #4 acute alcohol withdrawal syndrome #5 essential hypertension #6 hyperlipidemia Medications at Discharge Home Medications pravastatin 20 mg PO QHS 03/23/16 lisinopril 20 mg PO DAILY #30 tab 08/23/16 aspirin 81 mg PO DAILY@0800 10/16/17 albuterol sulfate 2 puff INHALATION Q4H PRN PRN #1 inhaler 10/19/17 albuterol sulfate 2.5 mg INHALATION Q4H PRN #30 ml 10/19/17 Combivent Respimat 1 puff INHALATION 4X/DAY #0 g 12/29/20 budesonide [Pulmicort] 0.5 mg INHALATION Q12H #60 ml 12/29/20 prednisone 40 mg PO BREAKFAST #14 tab 12/29/20 Hospital Course Operations None Procedures None Summary of Care Provided Minutes Spent on Discharge: 31 Hospital Course: This 55-year-old white male presented to the emergency room at [facility] with a chief complaint of shortness of breath, patient has known COPD and is on home O2 chronically. Patient's oxygen setting at home is 3 L, work-up in the emergency room revealed the patient to be hyponatremic with a sodium of 123, D-dimer was elevated at 1.22 and the patient had a CT of his chest which showed no evidence of pulmonary embolism. Patient was given Zofran for nausea, Solu-Medrol was administered, and the patient was admitted to [place] [address]. Patient had signs of alcohol withdrawal during his hospitalization but these symptoms were not severe. Patient was placed on medication for alcohol withdrawal symptoms. On 12/29/2020, patient was seen and examined: On examination he appeared in good health and spirits. Vital signs as documented. Skin warm and dry and without overt rashes. Neck without JVD, neck was supple, trachea midline, thyroid was normal. Lungs clear bilaterally, normal air movement was noted. Heart exam notable for regular rhythm, normal sounds and absence of murmurs, rubs or gallops. Abdomen unremarkable and without evidence of organomegaly, masses, or abdominal aortic enlargement. Bowel sounds are present, abdomen is not distended. Extremities nonedematous, no cyanosis was noted, no clubbing was noted. Neuro: Cranial nerves II through XII are grossly intact, no focal motor deficits were noted, sensation to light touch and pinprick intact, motor exam 5/5 throughout. Psych: Patient is alert and oriented x3, he does not appear anxious or depressed, he does not appear agitated. Patient was felt to be stable for discharge on 12/29/2020 to home. Weight / BMI Weight Weight: 52.6 kg Body Mass Index (BMI) 18.7 ABG / Lab / Microbiology Data Result Diagrams: 12/29/20 05:04 12/29/20 05:04 Microbiology: Microbiology 12/28/20 19:00 Sputum, Expectorated/Coughed Gram Stain - Final 12/28/20 19:00 Sputum, Expectorated/Coughed Respiratory Culture - Final Mixed normal respiratory larry. No Streptococcus pneumoniae, beta-hemolytic Streptococcus or Staphylococcus aureus isolated. 12/27/20 22:08 Urine, Random Legionella Antigen - Final 12/27/20 22:08 Urine, Random Streptococcus pneumoniae Antigen (M - Final 12/26/20 05:50 Mucosa - Nasopharyngeal Respiratory Panel (PCR) - Final 12/26/20 00:07 Nasal Secretion SARS-CoV-2 Antigen (Rapid) - Final D/C Instructions Discharge Diet: No restrictions Weight Bearing Status: Full weight bearing Meaningful Use Info Meaningful Use Diagnoses (Choose all that apply): None applicable Discharge Plan Admission Admit Date/Time: 12/26/20 03:56 Primary Reason for Your Visit: exacerbation of COPD Attending Provider: Chris Briscoe Primary Care Provider: Ketan Peralta Instructions Additional Instructions / Restrictions: Remain on home oxygen at your home setting Do not drink alcohol Discharge Orders/Prescriptions Prescriptions: New prednisone 20 mg Tablet 40 mg PO BREAKFAST Qty: 14 RF: 0 Continued pravastatin 10 MG tablet 20 mg PO QHS RF: 0 lisinopril 20 MG tablet 20 mg PO DAILY Qty: 30 RF: 0 aspirin 81 MG tablet,chewable 81 mg PO DAILY@0800 RF: 0 albuterol sulfate 2.5 mg /3 mL (0.083 %) solution for nebulization 2.5 mg INHALATION Q4H PRN (Reason: shortness of breath or wheezing) Qty: 30 RF: 1 albuterol sulfate 1 INHALER inhaler 2 puff INHALATION Q4H PRN PRN (Reason: Shortness Of Breath) Qty: 1 RF: 2 budesonide [Pulmicort] 0.5 mg/2 mL suspension for nebulization 0.5 mg INHALATION Q12H Qty: 60 RF: 0 Changed Combivent Respimat 20-100 mcg/actuation mist 1 puff INHALATION 4X/DAY Qty: 0 RF: 0 Discontinued ipratropium-albuterol 1 PUFF inhaler 1 puff INHALATION 4X/DAY Qty: 1 RF: 2 Referrals / Follow Up: Lee Higuera MD [STAFF PHYSICIAN] - Within 1 Month (:March @ 11:15 AM. IS SCHEDULING INTO THE FIRST OF NEXT YEAR. PT WILL GO ON A WAIT LIST ALSO.) Ketan Peralta MD [Primary Care Provider] - Within 2 Weeks ( 0900 AM) Disposition Disposition (needs filled in before D/C Order can be placed): Home, Self Care Charges/Coding Visit Charges Inpatient E&M: 93897 Disch Hosp
== END 2020-12-29 16:10 | disposition home or self-care (01) | DRG 190 ==
LOC: ED 01:09 → MS3 04:38
PROVIDERS: Internal Medicine; Admitting Provider Internal Medicine; Emergency Provider Emergency Medicine; PCP Family Medicine; Visit Provider Internal Medicine
DX: J44.1 Chronic obstructive pulmonary disease with (acute) exacerbation (principal); J96.21 Acute and chronic respiratory failure with hypoxia; J96.22 Acute and chronic respiratory failure with hypercapnia; E43 Unspecified severe protein-calorie malnutrition; E87.1 Hypo-osmolality and hyponatremia; F10.239 Alcohol dependence with withdrawal, unspecified; Z68.1 Body mass index [BMI] 19.9 or less, adult; I10 Essential (primary) hypertension; E78.5 Hyperlipidemia, unspecified; R19.7 Diarrhea, unspecified; R11.2 Nausea with vomiting, unspecified; R79.1 Abnormal coagulation profile; Z66 Do not resuscitate; Z99.81 Dependence on supplemental oxygen; Z79.51 Long term (current) use of inhaled steroids; Z79.899 Other long term (current) drug therapy; Z87.891 Personal history of nicotine dependence; Z23 Encounter for immunization
CPT/HCPCS: 36415; 71045; 71275; 74177; 80048; 80053; 80076; 81001; 83605; 83690; 83735; 83880; 84100; 84484; 85025; 85379; 85610; 87070; 87205; 87426; 87449; 87633; 93005; 94002; 94640; 94667; 97802; 99251; 99285; G0008; J7030; Q9967; 90686; A4216; G0463; J2405

== ENCOUNTER 2022-03-14 05:14 | Emergency (ER) | payer MEDICARE, SELFPAY ==
[2022-03-14 05:15] VITALS: BP 164/88; PULSE 105; RESP 19; TEMP 37.2; O2SAT 98; BMI 18.2
[2022-03-14 05:20] VITALS: O2SAT 99
--- NOTE | 2022-03-14 05:21 | RAD_ITS ---
INDICATION: sob EXAMINATION/TECHNIQUE: X-RAY - XR Chest 1 View AP portable. 5:56 AM COMPARISON: 12/26/2020. FINDINGS: LINES/DEVICES: None. LUNGS: Hyperinflated. No consolidation. No pneumothorax. MEDIASTINUM: Unremarkable. CARDIAC SILHOUETTE: Not enlarged. BONES AND SOFT TISSUES: No acute abnormalities. RAD/Chest 1 View (Portable) IMPRESSION: Hyperinflated lungs correlate for COPD. No infiltrates. Electronically Signed: Bhavna Nascimento MD at 6:45 EST ,
--- NOTE | 2022-03-14 05:23 | EX.ED.DYSGE1 ---
HPI History of Present Illness Chief Complaint: Shortness of Breath Informant: patient Onset/Context/Timing Onset: Days Context: Gradual Onset Current Severity: Mild Maximum Severity: Moderate Narrative Narrative: Patient presents secondary to shortness of breath. He has a history of stage IV COPD and wears home oxygen. He states his nose has been clogged and he is having trouble breathing. He woke up from sleep with increased difficulty and called squad. He did receive a DuoNeb treatment in route to the hospital. Patient denies fever. He has not had significant cough, just states he has head congestion. [facility] Medical History (Updated 03/14/22 @ 06:[address] Angela Durand MD) Acute and chronic respiratory failure with hypercapnia Alcohol abuse Chronic respiratory failure COPD (chronic obstructive pulmonary disease) D-dimer, elevated Diarrhea Hyperlipidemia Hypertension Hyponatremia Nausea & vomiting Home Medications pravastatin 10 mg tablet 20 mg PO QHS CHOLESTEROL 03/23/16 [History Last Taken 12/24/20] lisinopril 20 mg tablet 20 mg PO DAILY #30 tabs 08/23/16 [Rx Last Taken 12/24/20] aspirin 81 mg chewable tablet 81 mg PO DAILY@0800 [facility]INTE[facility]NCE 10/16/17 [History Last Taken 12/24/20] albuterol sulfate 2.5 mg/3 mL (0.083 %) solution for nebulization 2.5 mg (3 mL) inhalation Q4H PRN shortness of breath or wheezing #30 mL 10/19/17 [Rx Last Taken Unknown] albuterol sulfate 90 mcg/actuation aerosol inhaler 2 puff inhalation Q4H PRN PRN Shortness Of Breath ##1 10/19/17 [Rx Last Taken Unknown] budesonide 0.5 mg/2 mL suspension for nebulization (Pulmicort) 0.5 mg (2 mL) inhalation Q12H copd #60 mL 12/29/20 [Rx Last Taken Unknown] ipratropium 20 mcg-albuterol 100 mcg/actuation mist for inhalation (Combivent Respimat) 1 puff inhalation 4X/DAY #0 grams 12/29/20 [Rx Last Taken Unknown] prednisone 20 mg tablet 40 mg PO BREAKFAST #14 tabs 12/29/20 [Rx Last Taken Unknown] Allergy/AdvReac Type Severity Reaction Status Date / Time No Known Allergies Allergy Verified 03/14/22 05:22 Family History Mother COPD (chronic obstructive pulmonary disease) Aunt COPD (chronic obstructive pulmonary disease) Father Cancer Lung COPD (chronic obstructive pulmonary disease) Pneumonia Surgical History H/O chest tube placement Social History Smoking Status: Former smoker Tobacco: How many years used: 20 how long ago did patient quit smokin, 1pk/day second hand exposure: Yes alcohol intake: current alcohol intake frequency: other Alcohol type: beer details: At least 612 ounce beers daily with last intake last evening substance use type: does not use ROS ROS ED Constitutional Constitutional ED: Denies chills or fever(s) Eyes Eyes: Denies change in vision or discharge from eye(s) ENT ENT ED: Reports other Details: Nasal congestion ; Denies discharge from eye(s), rhinorrhea or sore throat Cardiovascular Cardiovascular: Denies chest pain or palpitations Respiratory/Chest Respiratory/Chest: Reports cough and dyspnea Gastrointestinal Gastrointestinal: Denies abdominal pain, diarrhea, nausea or vomiting Genitourinary Genitourinary ED: Denies dysuria Musculoskeletal Musculoskeletal: Denies back pain or extremity pain Integumentary Denies Abrasions or rash Neurologic Neurologic: Denies headache(s) or weakness Psychiatric Psychiatric: Reports anxiety; Denies depression Allergic/Immunologic Allergic/Immunologic ED: Denies lip swelling or urticaria EXAM Physical Exam Const Vital Signs: 03/14/22 05:15 03/14/22 05:20 03/14/22 05:30 Temperature 98.9 F Temperature Source Temporal Pulse Rate 105 H 98 Respiratory Rate 19 H 19 H Respiratory Effort Short of Breath Respiratory Depth Normal Respiratory Pattern Tachypnea Blood Pressure 164/88 H Blood Pressure Mean 113 Pulse Ox 98 Oxygen Delivery Method Nasal Cannula Nasal Cannula Oxygen Flow Rate (L/min) 2.5 2 Positive well nourished and well developed General Appearance ED: well developed HEENT Reports normocephalic and head/scalp atraumatic Eyes PERRL and EOMs intact bilaterally Neck supple Chest Wall inspection of chest normal and palpation of chest normal Resp normal respiratory effort Resp Narrative: Scattered expiratory wheezes. Cardio regular rhythm Rate: tachycardic GI normal to inspection, nondistended, normoactive bowel sounds Palpation: soft Extremity normal to inspection Neuro oriented x3 Neuro Narrative: No focal neurologic deficits. Sensorium / Orientation: alert Psych mental status grossly normal Skin no rashes or lesions noted MDM MDM MDM Narrative Medical decision making narrative: Patient was given Afrin nasal spray. He had received a DuoNeb treatment with EMS. Albuterol treatment is given here. Portable chest x-ray ordered. Radiography Chest X-Ray - ED: 1 View, Read by ED Physician, Chronic Changes and No Infiltrates Diagnostic Testing: Clinical Impression(s) from Imaging Studies Chest X-Ray 03/14/22 05:21 IMPRESSION: Hyperinflated lungs correlate for COPD. No infiltrates. Electronically Signed: Bhavna Nascimento MD at 6:45 EST , Treatment and Re-Evaluation Narrative: Chest x-ray per my interpretation reveals hyperinflation and chronic changes. No focal infiltrate appreciated. Radiology interpretation reviewed and agrees. On repeat evaluation patient reports feeling much improved. Lung sounds are grossly clear. He was instructed on Sudafed use to help dry up head congestion and Afrin nasal spray. Return instructions are given. Discharge Plan Triage Chief Complaint: Shortness of Breath ED Provider: Angela Durand Dx/Rx/DC Orders Clinical Impression: SOB (shortness of breath) Instructions: ED Dyspnea Prescriptions: No Action pravastatin 10 MG tablet 20 mg PO QHS Label Comments: for cholesterol lisinopril 20 MG tablet 20 mg PO DAILY Qty: 30 0RF aspirin 81 MG tablet,chewable 81 mg PO DAILY@0800 albuterol sulfate 2.5 mg /3 mL (0.083 %) solution for nebulization 2.5 mg INHALATION Q4H PRN (Reason: shortness of breath or wheezing) Qty: 30 1RF albuterol sulfate 1 INHALER inhaler 2 puff INHALATION Q4H PRN PRN (Reason: Shortness Of Breath) Qty: 1 2RF prednisone 20 mg Tablet 40 mg PO BREAKFAST Qty: 14 0RF budesonide [Pulmicort] 0.5 mg/2 mL suspension for nebulization 0.5 mg INHALATION Q12H Qty: 60 0RF Combivent Respimat 20-100 mcg/actuation mist 1 puff INHALATION 4X/DAY Qty: 0 0RF Primary Care Provider: Ketan Peralta Referrals: Ketan Peralta MD [Primary Care Provider] - As Needed Disposition Disposition: Home, Self Care
[2022-03-14] MEDS: Albuterol 2.5 MG/3 ML VIAL.NEB. INHALATION (05:29)
[2022-03-14] MEDS: Oxymetazoline 0.05% 1 SPRAY SPRAY.BTL 2 SPRAY NASAL (05:29)
[2022-03-14 05:30] VITALS: PULSE 98; RESP 19
[2022-03-14 07:13] VITALS: BP 134/69; PULSE 87; RESP 13; O2SAT 99
--- NOTE | 2022-03-14 07:20 | ED.RN ---
CALLED SPOUSE, EDWARD, PER PATIENT TO COME AND PICK HIM UP AT THE ED. EDWARD REPORTED SHE WOULD BE HERE IN APPROX 30 MINUTES
== END 2022-03-14 09:56 | disposition home or self-care (01) ==
PROVIDERS: Emergency Provider Emergency Medicine; PCP Family Medicine; Visit Provider Emergency Medicine
DX: R06.02 Shortness of breath (principal); J44.9 Chronic obstructive pulmonary disease, unspecified; I10 Essential (primary) hypertension; E78.5 Hyperlipidemia, unspecified; F41.9 Anxiety disorder, unspecified; Z87.891 Personal history of nicotine dependence
CPT/HCPCS: 99285; 71045; 94640

== ENCOUNTER 2022-03-15 22:20 | Inpatient (IN) | payer MEDICARE, SELFPAY ==
[2022-03-15 22:21] VITALS: BP 162/87; PULSE 118; RESP 18; TEMP 36.7; O2SAT 95; BMI 19.0
[2022-03-15 22:30] VITALS: O2SAT 95
--- NOTE | 2022-03-15 23:00 | EKG12_ITS ---
Test Reason : DYSRHYTHMIA Blood Pressure : / mmHG Vent. Rate : 100 BPM Atrial Rate : 100 BPM P-R Int : 104 ms QRS Dur : 072 ms QT Int : 328 ms P-R-T Axes : 087 041 066 degrees QTc Int : 423 ms Sinus rhythm with short PA Low voltage QRS (Limb Leads) Borderline ECG Confirmed by PAMELA PHAM, GALE ([id number]), news editor ADY CHOWDARY ([id number]) on 03/22/2022 10:02:41 AM Referred By: BLAIR Confirmed By:GALE SANTIAGO MD
--- NOTE | 2022-03-15 23:01 | ED.VIS.DYS ---
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 Over the last few days he states he has been unable to breathe through his nose and has become more short of breath. He denies any fever or chills but states that he has had cough and shortness of breath that is worsening. He usually wears 3 to 4 L per nasal cannula at home but states that his nose feel congested and very dry. [facility] Medical History Acute and chronic respiratory failure with hypercapnia Alcohol abuse Chronic respiratory failure COPD (chronic obstructive pulmonary disease) D-dimer, elevated Diarrhea Hyperlipidemia Hypertension Hyponatremia Nausea & vomiting Home Medications pravastatin 10 mg tablet 20 mg PO QHS CHOLESTEROL 03/23/16 [History Last Taken 12/24/20] lisinopril 20 mg tablet 20 mg PO DAILY #30 tabs 08/23/16 [Rx Last Taken 12/24/20] aspirin 81 mg chewable tablet 81 mg PO DAILY@0800 [facility]ALTH MAINTENANCE 10/16/17 [History Last Taken 12/24/20] albuterol sulfate 2.5 mg/3 mL (0.083 %) solution for nebulization 2.5 mg (3 mL) inhalation Q4H PRN shortness of breath or wheezing #30 mL 10/19/17 [Rx Last Taken Unknown] albuterol sulfate 90 mcg/actuation aerosol inhaler 2 puff inhalation Q4H PRN PRN Shortness Of Breath ##1 10/19/17 [Rx Last Taken Unknown] budesonide 0.5 mg/2 mL suspension for nebulization (Pulmicort) 0.5 mg (2 mL) inhalation Q12H copd #60 mL 12/29/20 [Rx Last Taken Unknown] ipratropium 20 mcg-albuterol 100 mcg/actuation mist for inhalation (Combivent Respimat) 1 puff inhalation 4X/DAY #0 grams 12/29/20 [Rx Last Taken Unknown] prednisone 20 mg tablet 40 mg PO BREAKFAST #14 tabs 12/29/20 [Rx Last Taken Unknown] Allergy/AdvReac Type Severity Reaction Status Date / Time No Known Allergies Allergy Verified 03/15/22 22:23 Family History Mother COPD (chronic obstructive pulmonary disease) Aunt COPD (chronic obstructive pulmonary disease) Father Cancer Lung COPD (chronic obstructive pulmonary disease) Pneumonia Surgical History H/O chest tube placement Social History Smoking Status: Former smoker Tobacco: How many years used: 20 how long ago did patient quit smokin, 1pk/day second hand exposure: Yes alcohol intake: current alcohol intake frequency: other Alcohol type: beer details: At least 612 ounce beers daily with last intake last evening substance use type: does not use ROS ROS ED ROS Narrative Constitutional: No fever, no chills. HEENT: No sore throat. No neck pain. No loss of vision. No rhinorrhea. Positive nasal congestion, unable to breathe through nares. Cardiovascular: No chest pain. No palpitations. No pedal edema. Respiratory: Positive cough, positive increasing shortness of breath. Abdominal: No abdominal pain. No nausea. No vomiting. Genitourinary: No dysuria. No hematuria. Musculoskeletal: No myalgias. No arthralgias. Neurologic: No headaches. No dizziness. No lightheadedness. Skin: No rash. No change in color. Psychiatric: No depression. No anxiety. EXAM Physical Exam Narrative Exam Narrative: Afebrile. Vital signs noted. HEENT: Normocephalic. Atraumatic. PERRL, EOMI. Neck soft and supple. No point tenderness or step off. Cardiovascular: Intermittent tachycardia, no murmurs, rubs, or gallops appreciated. Respiratory: No tachypnea. Moving a fair amount of air. No distress. Decreased breath sounds bilateral bases. Gastrointestinal: Abdomen soft, nontender, with normoactive bowel sounds. No rebound or guarding. Neurological: Awake. Alert. Nonfocal, nonlateralizing. Skin: No rash. Normal color. No pallor. Musculoskeletal: No pedal edema. Full range of motion extremities. Const Vital Signs: 03/15/22 22:21 03/15/22 22:30 03/15/22 23:06 Temperature 98.0 F Temperature Source Temporal Pulse Rate 118 H 118 H Respiratory Rate 18 26 H Respiratory Effort Short of Breath Labored Accessory Muscle Use Respiratory Depth Deep Respiratory Pattern Tachypnea Tachypnea Blood Pressure 162/87 H Blood Pressure Mean 112 Pulse Ox 95 Oxygen Delivery Method Nasal Cannula Nasal Cannula Oxygen Flow Rate (L/min) 4 3 03/15/22 23:06 Temperature Temperature Source Pulse Rate Respiratory Rate 26 H Respiratory Effort Short of Breath Labored Accessory Muscle Use Respiratory Depth Shallow Respiratory Pattern Tachypnea Blood Pressure Blood Pressure Mean Pulse Ox 97 Oxygen Delivery Method Nasal Cannula Oxygen Flow Rate (L/min) 2 MDM MDM MDM Narrative Medical decision making narrative: Patient states he has not had a steroid burst recently. He was administered methylprednisolone and DuoNeb aerosolized treatment. He states he has been using his albuterol inhalers. Comprehensive work-up was pursued. EKG interpreted by myself demonstrates normal sinus rhythm at 100 bpm without ectopy or acute ST changes. No STEMI. No significant change from previous EKG dated December 2020. CBC shows normal white count of 8.8, hemoglobin stable at 11.6 with platelet count normal at 246. Electrolyte panel shows carbon dioxide elevated at 33 consistent with his end-stage COPD, but otherwise unremarkable. Chest x-ray in 1 view interpreted by myself shows COPD and chronic changes with bilateral scarring at the bases. Patient states that even after aerosol treatment and Solu-Medrol 125 mg intravenously that he could not breathe through his nose. It was reported that he was also here last evening and is having increasing shortness of breath and states that he cannot go home and he becomes very short of breath even when he walks around, but he refuses to walk currently because he becomes extremely short of breath. I discussed patient with Dr. Roberto for admission. Patient is in stable condition. Lab Data Attestation: I reviewed the patient's lab results. Labs: Laboratory Results - last 24 hr 03/15/22 03/15/22 22:40 22:40 WBC 8.8 RBC 4.00 L Hgb 11.6 L Hct 35.8 L MCV 89.5 MCH 29.0 MCHC 32.4 RDW Std Deviation 49.7 H RDW Coeff of Sherri 15.1 H Plt Count 246 MPV 9.3 Immature Gran % (Auto) 1.100 H Neut % (Auto) 70.3 H Lymph % (Auto) 16.4 L Rapides % (Auto) 7.9 Eos % (Auto) 3.6 Baso % (Auto) 0.7 Absolute Neuts (auto) 6.2 Absolute Lymphs (auto) 1.44 Nucleated RBC % 0 Sodium 136 Potassium 3.9 Chloride 99 Carbon Dioxide 33.0 H Anion Gap 4 L BUN 10 Creatinine 0.70 Estim Creat Clear Calc 87.08 Est GFR (MDRD) Af Amer 148 Est GFR (MDRD) Non-Af 123 BUN/Creatinine Ratio 14.2 Glucose 104 Calcium 8.9 Radiography Diagnostic Testing: Clinical Impression(s) from Imaging Studies Chest X-Ray 03/15/22 23:20 IMPRESSION: COPD. Mild bilateral interstitial infiltrates. Ileus. Possible left diaphragmatic hernia. Electronically Signed: Gerhard Joyce MD at 23:35 EST , Discharge Plan Triage Chief Complaint: Shortness of Breath ED Provider: Chris Baptiste Dx/Rx/DC Orders Primary Care Provider: Ketan Peralta
[2022-03-15] MEDS: MethylPREDNISolone 125 MG/2 ML Vial IV (23:04)
[2022-03-15 23:06] VITALS: PULSE 118; RESP 26; O2SAT 97
[2022-03-15] MEDS: Ipratropium/Albuterol Sulfate 3 ML AMPUL.NEB INHALATION (23:06)
--- NOTE | 2022-03-15 23:20 | RAD_ITS ---
STUDY: X-RAY CHEST REASON FOR EXAM: Male, 57 years old. Shortness of breath TECHNIQUE: Single frontal view of the chest. COMPARISON: March 14, 2022 FINDINGS: Lungs are hyperaerated. Possible mild bilateral interstitial infiltrates in the upper lung roland and left lower lobe. There is no demonstrated pleural abnormality. Normal size heart. Normal mediastinum and kathleen. Normal visualized pulmonary arteries. Normal visualized aortic arch and descending thoracic aorta. Normal visualized thoracic spine. Normal visualized ribs, clavicles, and shoulders. Possible diaphragmatic hernia on the left with multiple gas-filled loops of small bowel noted. RAD/Chest 1 View (Portable) IMPRESSION: COPD. Mild bilateral interstitial infiltrates. Ileus. Possible left diaphragmatic hernia. Electronically Signed: Gerhard Joyce MD at 23:35 EST ,
[2022-03-15 23:33] LABS: Anion Gap 4 (5-15); BUN 10 mg/dL (7-18); BUN/Creat Ratio 14.2 RATIO (10-20); Calcium,Total 8.9 mg/dL (8.5-10.1); Chloride 99 mmol/L (98-107); EST Glomerular Filtration Rate 123 mL/min (>60); Est Glom Filt Rate - Afr Amer 148 mL/min (>60); Estimated Creatinine Clearance 87.08 ml/min; Glucose 104 mg/dL (74-106); Potassium 3.9 mmol/L (3.5-5.1); Sodium Level 136 mmol/L (136-145)
[2022-03-15 23:40] LABS: Absolute Lymphocyte Count 1.44 X10^3/uL (0.83-4.51); Absolute Neutrophil Count 6.2 X10^3/uL (2.0-7.7); Basophil# 0.06 X10^3/uL; Basophil% 0.7 % (0-1); Eosinophil# 0.32 X10^3/uL; Eosinophils% 3.6 % (0-5); Hematocrit 35.8 % (40-54); Hemoglobin 11.6 g/dL (13.0-16.5); Lymphocyte # 1.44 X10^3/ul (0.83-4.51); Lymphocyte % 16.4 % (19-41); Mean Corp Hgb Conc 32.4 g/dL (32-36); Mean Corpuscular Volume 89.5 fL (80-94); Mean Platelet Vol. 9.3 fl (6.2-12.0); Monocyte# 0.69 X10^3/uL; Monocyte% 7.9 % (0-10); NRBC Flagged by Analyzer 0 % (0-5); Neutrophil # 6.17 X10^3/uL (2.7-7.7); Neutrophil % 70.3 % (47-70); Platelet Count 246 K/mm3 (150-450); RBC Distribution Width CV 15.1 % (11.6-14.6); RBC Distribution Width SD 49.7 fl (35.1-43.9); White Blood Count 8.8 K/mm3 (4.4-11.0)
[2022-03-16] VITALS (10 sets, daily range): BP systolic 123–164; BP diastolic 67–90; PULSE 90–108; RESP 15–22; TEMP 36.4–36.7; O2SAT 93–98; BMI 16.8
--- NOTE | 2022-03-16 00:15 | HP.PCM.HOS_ITS ---
HPI - General General Date of Admission: 03/16/22 Date of Service: 03/16/22 Chief Complaint: Dyspnea, wheezing, congestion, worsening x 1 week HPI Narrative The patient is a 57 y/o M w/ PMHx: Chronic anemia, Former Tobacco use, Severe Stage IV COPD with Chronic Hypoxic and Hypercarbic Respiratory Failure (3-4L NC baseline), HTN, HLD, History prior EtOH abuse who presents to the [facility] ED on 03/16/22 with history of just over 1 week history of progressively worsening fatigue, malaise, significant chest tightness with wheezing as well as notable congestion with difficulty breathing out of his nose with his nasal cannula with ED evaluation initially on 03/14/2022 with at that time Afrin nasal spray, DuoNeb therapy as well as albuterol treatments with mentation to utilize Sudafed at his discharge to home as well as Afrin spray who now represents with continued worsening dyspnea sensation initially with concern for transient BiPAP needs however improved prior to usage and ongoing congestion at as well as wheezing. Patient denies any marked sputum production or increased severe cough above his baseline nor has he had any fevers or chills. Work-up in the ED included T 98, heart rate 118, BP 160/87, respiratory rate ranging 18-26, initially 95% on 4 L nasal cannula which is above his chronic 2-3 baseline usage, CBC with WC 8.8, hemoglobin 11.6, MCV 89.5, platelet 246 without marked shift, BMP with carbon oxide 33 otherwise unremarkable, chest x-ray read as chronic COPD changes with mild bilateral interstitial infiltrates, ileus, possible left diaphragmatic hernia however again patient with no WBC elevation or significant left shift and afebrile suspicious for likely chronic changes, rapid COVID antigen and influenza antigen negative. In the ED patient ministered Solu-Medrol 125 mg IV x1 as well as DuoNeb therapy. Patient had transiently been concerning with planned placement on BiPAP however improved prior to usage. [facility] Medical History (Updated 03/16/22 @ 01:[address] Kandis Roberto MD) Chronic respiratory failure Chronic respiratory failure with hypoxia and hypercapnia Former tobacco use History of alcohol abuse Hyperlipidemia Hypertension Severe malnutrition Stage 4 very severe COPD by GOLD classification Home Medications pravastatin 10 mg tablet 20 mg PO QHS CHOLESTEROL 03/23/16 [History Last Taken 12/24/20] aspirin 81 mg chewable tablet 81 mg PO DAILY@0800 HEALTH MAINTENANCE 10/16/17 [History Last Taken 12/24/20] albuterol sulfate 2.5 mg/3 mL (0.083 %) solution for nebulization 2.5 mg (3 mL) inhalation Q4H PRN shortness of breath or wheezing #30 mL 10/19/17 [Rx Last Taken Unknown] albuterol sulfate 90 mcg/actuation aerosol inhaler 2 puff inhalation Q4H PRN PRN Shortness Of Breath ##1 10/19/17 [Rx Last Taken Unknown] budesonide 0.5 mg/2 mL suspension for nebulization (Pulmicort) 0.5 mg (2 mL) inhalation Q12H copd #60 mL 12/29/20 [Rx Last Taken Unknown] ipratropium 20 mcg-albuterol 100 mcg/actuation mist for inhalation (Combivent Respimat) 1 puff inhalation 4X/DAY SOB 03/16/22 [History Last Taken Unknown] lisinopril 20 mg tablet 20 mg PO DAILY HYPERTENSION 03/16/22 [History Last Taken Unknown] Allergy/AdvReac Type Severity Reaction Status Date / Time No Known Allergies Allergy Verified 03/15/22 22:23 Family History Mother COPD (chronic obstructive pulmonary disease) Aunt COPD (chronic obstructive pulmonary disease) Father Cancer Lung COPD (chronic obstructive pulmonary disease) Pneumonia Surgical History H/O chest tube placement Social History Smoking Status: Former smoker Tobacco: How many years used: 20 how long ago did patient quit smokin, 1pk/day second hand exposure: Yes alcohol intake: current alcohol intake frequency: other Alcohol type: beer details: At least 612 ounce beers daily with last intake last evening substance use type: does not use ROS ROS Narrative Admission Review of Systems: CONSTITUTIONAL: No weight loss, fever, chills, + weakness or fatigue. HEENT: + Congestion. Eyes: No visual loss, blurred vision, double vision or yellow sclerae. Ears, Nose, Throat: No hearing loss, sneezing, runny nose or sore throat. SKIN: No rash or itching, lesions, wounds. CARDIOVASCULAR: + Pleuritic chest discomfort especially worsened by coughing, no no other noted chest pain, chest pressure or chest discomfort, palpitations, edema, orthopnea, syncopal events. RESPIRATORY: + shortness of breath, cough without marked sputum, wheezing, No hemoptysis. GASTROINTESTINAL: + anorexia, nausea, No vomiting or diarrhea, abdominal pain, melena, BRBPR. GENITOURINARY: No dysuria, frequency, urgency or retention. NEUROLOGICAL: + headache, No dizziness, syncope, paralysis, ataxia, numbness or tingling in the extremities, focal weakness, change in bowel or bladder control, seizure. MUSCULOSKELETAL:+ muscle, back pain, joint pain or stiffness. HEMATOLOGIC: + anemia, bleeding or bruising. LYMPHATICS: No enlarged nodes. No history of splenectomy. PSYCHIATRIC: No history of depression or anxiety. ENDOCRINOLOGIC: No reports of sweating, cold or heat intolerance. No polyuria or polydipsia. ALLERGIES: No history of asthma, hives, eczema or rhinitis. Vital Signs Vital Signs Vital Signs: 03/15/22 22:21 03/15/22 22:30 03/15/22 23:06 Temperature 98.0 F Temperature Source Temporal Pulse Rate 118 H 118 H Respiratory Rate 18 26 H Respiratory Effort Short of Breath Labored Accessory Muscle Use Respiratory Depth Deep Respiratory Pattern Tachypnea Tachypnea Blood Pressure 162/87 H Blood Pressure Mean 112 Pulse Ox 95 Oxygen Delivery Method Nasal Cannula Nasal Cannula Oxygen Flow Rate (L/min) 4 3 03/15/22 23:06 Temperature Temperature Source Pulse Rate Respiratory Rate 26 H Respiratory Effort Short of Breath Labored Accessory Muscle Use Respiratory Depth Shallow Respiratory Pattern Tachypnea Blood Pressure Blood Pressure Mean Pulse Ox 97 Oxygen Delivery Method Nasal Cannula Oxygen Flow Rate (L/min) 2 Weight Weight: 118 lb Body Mass Index (BMI) 19.0 Physical Exam Narrative Physical Examination: General: Awake, alert, oriented x 3 and cooperative, seated upright in the ED be d, fatigued and ill-appearing, mildly increased respiratory rate, notes dyspnea as improved somewhat and did not end up putting the BiPAP on. Skin: Normal color, normal turgor, no icterus, no cyanosis except occasional staged ecchymoses. HEENT: AT/NC, EOMI, PERRLA, dry MM, no carotid bruits or JVD noted. Lungs: Severely diffusely diminished, greater bases, mildly increased respiratory rate, no rales or rhonchi, very soft distant expiratory wheeze in the posterior roland. Heart: Mildly tachycardic with regular rhythm; no gallop, rub audible. Abdomen: Soft, cachectic habitus, NTTP, ND, distant normal BS, no HSM. Extremities: No cyanosis, clubbing, or edema. Neurological: Patient awake, alert, oriented as noted, cognitive function intact; pupils equally reactive to light and accommodation, cranial nerves II- XII grossly normal, moving all 4 extremities, no focal deficits, strength severely global decrease secondary to acute presentation. Psychiatric: Affect appears fatigued, ill-appearing, no acute evidence of depressive or anxiety feelings. Results Lab / Micro Data Result Diagrams: 03/15/22 22:40 03/15/22 22:40 Labs: Laboratory Results - last 24 hr 03/15/22 22:40: WBC 8.8, RBC 4.00 L, Hgb 11.6 L, Hct 35.8 L, MCV 89.5, MCH 29.0, MCHC 32.4, RDW Std Deviation 49.7 H, RDW Coeff of Sherri 15.1 H, Plt Count 246, MPV 9.3, Immature Gran % (Auto) 1.100 H, Neut % (Auto) 70.3 H, Lymph % (Auto) 16.4 L , [place] % (Auto) 7.9, Eos % (Auto) 3.6, Baso % (Auto) 0.7, Absolute Neuts (auto) 6.2, Absolute Lymphs (auto) 1.44, Nucleated RBC % 0 03/15/22 22:40: Sodium 136, Potassium 3.9, Chloride 99, Carbon Dioxide 33.0 H, Anion Gap 4 L, BUN 10, Creatinine 0.70, Estim Creat Clear Calc 87.08, Est GFR (MDRD) Af Amer 148, Est GFR (MDRD) Non-Af 123, BUN/Creatinine Ratio 14.2, Glucose 104, Calcium 8.9 Micro: Microbiology 03/15/22 22:40 Nasal Secretion SARS-CoV-2 & FLU Antigen (Rapid) - Final Radiology Impression Chest X-Ray 03/15/22 23:20 IMPRESSION: COPD. Mild bilateral interstitial infiltrates. Ileus. Possible left diaphragmatic hernia. Electronically Signed: Gerhard Joyce MD at 23:35 EST , Assessment & Plan Assessment/Plan (1) COPD exacerbation: PLAN: Plan The patient is a 57 y/o M w/ PMHx: Chronic anemia, Former Tobacco use, Severe Stage IV COPD with Chronic Hypoxic and Hypercarbic Respiratory Failure (3-4L NC baseline), HTN, HLD, History prior EtOH abuse who presents to the [facility] ED on 03/16/22 with history of just over 1 week history of progressively worsening fatigue, malaise, significant chest tightness with wheezing as well as notable congestion with difficulty breathing out of his nose with his nasal cannula. #1. Acute on Chronic COPD exacerbation w/ Acute Hypoxia on Chronic Hypoxic and Hypercarbic Respiratory Failure suspected secondary to Acute Viral Syndrome, lower suspicion for bacterial PNA: Will admit to [facility] given improvement, maintain on oxygen with wean as tolerated to home oxygen supplementation, continue ATC duonebs, PRN albuterol, IV methylprednisolone, HOB, IS parameters, will request sputum culture if able to obtain however denies marked sputum production, will obtain full respiratory panel as well as COVID PCR given timeline in addition to procalcitonin and if any indication or concern for actual pneumonia or bacterial etiology will add antibiotic therapy. If patient clinically worsens low threshold to involve pulmonary medicine. #2. Hypertension: Continue home regimen including lisinopril, PRN hydralazine. #3. Hyperlipidemia: We will continue patient on statin therapy. #4. Chronic normocytic anemia: Admission hemoglobin 1.6, baseline 11-12, stable, continue to trend. #5. Former tobacco use: Encourage continued tobacco cessation. #6. Former alcohol abuse: Encouraged continued safe sobriety. #7. Severe protein calorie malnutrition: Evidenced by significantly reduced BMI, obvious muscle and fat loss, nutrition consulted. #8. DVT prophylaxis: SCDs, Lovenox. #9. CODE status: Patient LAVERNE is his . Discussed CODE status at length including difference between FULL code, DNR-CCA and DNR-CC status. Following discussions about the differences in these status, requested DNR-CCA, no intubation status. Advanced Care Planning Face to Face Time: 16 minutes. Charges/Coding Visit Charges Inpatient E&M: 04284 Init Hosp L3 Procedures Hospitalists Procedures: 34289 Advncd Care Plan 30 Min
[2022-03-16 01:20] LABS: Procalcitonin 0.08 ng/mL (0.00-0.09)
[2022-03-16] MEDS: clonazePAM 0.5 MG Tablet PO ×2 (02:02→08:26)
[2022-03-16] MEDS: 0.9% Normal Saline 1,000 ML 100 ML IV (02:02)
--- NOTE | 2022-03-16 02:28 | NURSING ---
emergency documentation in effect starting at 0200 03/16/22
[2022-03-16] MEDS: Oxymetazoline 0.05% 1 SPRAY SPRAY.BTL NASAL ×2 (04:12→08:20)
[2022-03-16 07:22] LABS: Absolute Lymphocyte Count 0.35 X10^3/uL (0.83-4.51); Absolute Neutrophil Count 6.7 X10^3/uL (2.0-7.7); Basophil# 0.01 X10^3/uL; Basophil% 0.1 % (0-1); Hematocrit 33.7 % (40-54); Hemoglobin 10.9 g/dL (13.0-16.5); Lymphocyte # 0.35 X10^3/ul (0.83-4.51); Lymphocyte % 4.9 % (19-41); Mean Corp Hgb Conc 32.3 g/dL (32-36); Mean Corpuscular Hgb 29.1 pg (27.0-32.0); Mean Corpuscular Volume 89.9 fL (80-94); Mean Platelet Vol. 8.7 fl (6.2-12.0); Monocyte# 0.04 X10^3/uL; Monocyte% 0.6 % (0-10); NRBC Flagged by Analyzer 0 % (0-5); Neutrophil # 6.67 X10^3/uL (2.7-7.7); POSITIVE DIFFERENTIAL YES; Platelet Count 223 K/mm3 (150-450); RBC Distribution Width CV 14.8 % (11.6-14.6); RBC Distribution Width SD 48.8 fl (35.1-43.9); Red Blood Count 3.75 M/mm3 (4.6-6.2); White Blood Count 7.1 K/mm3 (4.4-11.0)
[2022-03-16] MEDS: Ipratropium/Albuterol Sulfate 3 ML AMPUL.NEB INHALATION ×3 (07:32→14:40)
[2022-03-16 07:44] LABS: Differential Indicated SCAN CRITERIA MET
[2022-03-16 07:45] LABS: ALB/GLOB Ratio 0.9 RATIO (0.9-2.4); AST(SGOT) 12 U/L (15-37); Alanine Aminotransfer ALT/SGPT 15 U/L (16-61); Albumin, Serum 3.1 g/dL (3.2-5.0); Alkaline Phosphatase 58 U/L (45-117); Anion Gap 5 (5-15); BUN 12 mg/dL (7-18); BUN/Creat Ratio 19.9 RATIO (10-20); Calcium,Total 8.6 mg/dL (8.5-10.1); Chloride 99 mmol/L (98-107); EST Glomerular Filtration Rate 146 mL/min (>60); Est Glom Filt Rate - Afr Amer 177 mL/min (>60); Estimated Creatinine Clearance 89.78 ml/min; Globulin 3.6 g/dL (2.2-4.2); Glucose 121 mg/dL (74-106); Potassium 4.4 mmol/L (3.5-5.1); Protein, Total 6.7 g/dL (6.4-8.2); Sodium Level 134 mmol/L (136-145)
[2022-03-16 07:59] LABS: Differential Comment SCANNED
[2022-03-16] MEDS: FLU VACC QS2022-23(6MOS UP)/PF 60 MCG/0.5 ML SYRINGE IM (08:21)
[2022-03-16] MEDS: Enoxaparin 40 MG/0.4 ML Syringe SC (08:21)
[2022-03-16] MEDS: Aspirin 81 MG TAB.CHEW PO (08:22)
[2022-03-16] MEDS: Lisinopril 20 MG Tablet PO (08:23)
--- NOTE | 2022-03-16 10:30 | CASEMGMT ---
MADIHA HARRINGTON Assessment: Face to Face with pt for initial transition planning/care coordination assessment. RN JUANY introduced self and role at [facility], pt voices understanding and consents to assessment. Pt in bed, on phone. Pt hung up phone for assessment. Pt is A/O x4 and answers all questions appropriately at this time. Care providers, pharmacy, and demographics verified/updated. Admitting Dx: Acute COPD Exacerbation. PCP: Ketan Peralta. Specialists: Kalen, Pulmonary. Preferred Pharmacy: [facility]. Insurance: [employer] Medicare PPO. Prescription Benefit: Yes. LW/HPOA: Pt denies having a LW/HPOA and denies need for info regarding AD. LNOK: Corinna Irwin, . Living Arrangements: Pt lives with and nephew in a one story home with one step to enter. Pt denies any issues navigating stairs. Pt reports being I in ADLs. Transportation: Pt drives self and denies concerns with transportation. Pt's and nephew can assist as well. DME/HHC/SNF: Pt reports having the following: cane, rollator, walker, and shower chair. Pt has a nebulizer and oxygen. The oxygen is received through [employer]. Pt states he has a concentrator and portable tank. Pt denies any current or past HHC or SNF stays. Pt states no concerns with going home at time of dc. Pt states no further concerns/needs. Pt does have a navarro. RN CM will monitor to note if is able to be educated or if HHC is needed. CM to follow. Advised pt to ask CM if any further question/concerns/needs arise, voices understanding. Pt Goal: Home. No needs. Plan:? TBD.
--- NOTE | 2022-03-16 13:22 | DS.PCM_ITS ---
Providers Date of Admission: 03/16/22 Date of Discharge: 03/16/22 Primary Care Physician: Dr. Ketan Peralta MD Reason For Visit: ACUTE COPD EXACERBATION Diagnosis Discharge Diagnosis (1) COPD exacerbation: Status: Chronic Code(s): J44.1 - Chronic obstructive pulmonary disease with (acute) exacerbation Medications at Discharge Home Medications pravastatin 10 mg tablet 20 mg PO QHS CHOLESTEROL 03/23/16 aspirin 81 mg chewable tablet 81 mg PO DAILY@0800 HEALTH MAINTENANCE 10/16/17 albuterol sulfate 2.5 mg/3 mL (0.083 %) solution for nebulization 2.5 mg (3 mL) inhalation Q4H PRN shortness of breath or wheezing #30 mL 10/19/17 albuterol sulfate 90 mcg/actuation aerosol inhaler 2 puff inhalation Q4H PRN PRN Shortness Of Breath ##1 10/19/17 budesonide 0.5 mg/2 mL suspension for nebulization (Pulmicort) 0.5 mg (2 mL) inhalation Q12H copd #60 mL 12/29/20 fluticasone propionate 50 mcg/actuation nasal spray,suspension (24 Hour Allergy Relief) 1 spray intranasal BID #16 grams 03/16/22 guaifenesin 1,200 mg tablet, extended release 12 hr (Mucinex) 1,200 mg PO BID #20 tabs 03/16/22 ipratropium 20 mcg-albuterol 100 mcg/actuation mist for inhalation (Combivent Respimat) 1 puff inhalation 4X/DAY SOB 03/16/22 lisinopril 20 mg tablet 20 mg PO DAILY HYPERTENSION 03/16/22 prednisone 10 mg tablet 10 mg PO DAILY #40 tabs 03/16/22 sodium chloride 0.65 % nasal spray aerosol (Roane Nasal) 2 spray intranasal Q2H PRN dry nasal passages #104 mL 03/16/22 Hospital Course Operations None Procedures None and - (Chest x-ray) Summary of Care Provided Minutes Spent on Discharge: Hospital Course: Mr. Irwin is a 57-year-old male who is on chronic 2-3 L of nasal cannula at baseline presented to the emergency department with just over a 1 week history of progressively worsening shortness of breath, fatigue, malaise and chest tightness with wheezing. He also complained of having difficulty breathing out of his nose secondary to nasal congestion. He was seen in the emergency department on the and at that time was recommended to use Afrin nasal spray at home and given a DuoNeb as well as albuterol treatments with Sudafed and discharged home in stable condition. He represented due to worsening dyspnea. Patient denied any increase in sputum production or cough above his baseline and had not had any fever or chills. Work-up in the ED included T 98, heart rate 118, BP 160/87, respiratory rate ranging 18-26, initially 95% on 4 L nasal cannula which is above his chronic 2-3 baseline usage, CBC with WC 8.8, hemoglobin 11.6, MCV 89.5, platelet 246 without marked shift, BMP with carbon oxide 33 otherwise unremarkable, chest x-ray read as chronic COPD changes with mild bilateral interstitial infiltrates, ileus, possible left diaphragmatic hernia however again patient with no WBC elevation or significant left shift and afebrile suspicious for likely chronic changes, rapid COVID antigen and influenza antigen negative.? In the emergency department he was given IV Solu- Medrol 125 mg x 1 dose as well as a DuoNeb therapy and request for admission was made secondary to his respiratory distress on presentation. I evaluated the patient later in the day on 03/16/2022 and the patient reported that he was d ramatically better since admitting indicating he was at least 75% better since presentation. His respiratory viral panel, strep pneumo and Legionella antigens, and COVID/flu testing were all negative. He was able to produce a sputum and it was pending at discharge I will monitor for this. He was still concerned about his nasal congestion and was requesting that we placed him on something to help with the dryness and congestion at the time of discharge. I will send him with a prescription for intranasal fluticasone as well as Roane nasal spray. We did discuss if these remedies do not improve his nasal congestion that he may need outpatient ENT follow-up. He does have history of previously nasal fracture. We initially discussed on watching him over night with probable discharge tomorrow if he continues to feel well however with him being on his baseline oxygen at 2 L with oxygen saturations anywhere from 93 to 97% and him feeling so much better he felt he would like to go home later today. He was discharged home in stable condition on 03/16/2022. I sent him with the above nasal sprays as well as Mucinex twice daily for another week and a prednisone taper 40 mg x 4 days, 30 mg x 4 days, 20 mg x 4 days, 10 mg x 4 days and then stop. I have asked him to follow-up with his primary care physician in the next 2 weeks and then follow-up with his outpatient p d driver within the next month. The patient improved dramatically and a much more rapid fashion then initially expected upon presentation. Discharge diagnoses: Chronic hypoxia with brief episode of acute hypoxia on presentation Acute exacerbation of COPD Nasal congestion Hypertension Hyperlipidemia Chronic normocytic anemia History of tobacco abuse History of alcohol abuse Severe malnutrition Physical Exam Const alert, oriented x3 and no apparent distress Constitutional Narrative: Thin, upper middle-aged, white male, appears older than stated age, resting comfortably sitting up in bed, watching television, appears comfortable, on 2 L nasal cannula with no signs of respiratory distress General Appearance: cooperative, comfortable and well developed Orientation / Consciousness: awake, oriented to person, oriented to place and oriented to time Exam Limitations: no limitations Nutritional Appearance: cachectic HEENT normocephalic and head/scalp atraumatic HEENT Narrative: Mild to moderate hearing loss, dentition is poor, no thrush Resp normal respiratory effort, no retractions and no use of accessory muscles Resp Narrative: Markedly diminished diffusely with few scattered end expiratory wheeze that resolved with cough Auscultation: wheezes; Negative for crackles or rhonchi Cardio regular rate, regular rhythm, S1 normal heart sound, S2 normal heart sound, no murmurs, no rub, no gallops and no clicks GI normal to inspection, nondistended, normoactive bowel sounds, soft to palpation and non-tender GI Narrative: Scaphoid abdomen Extremity no clubbing, cyanosis or edema Extremity Narrative: 2+ pedal pulses, decreased lean muscle mass Neuro oriented x3, CN's II-XII intact bilaterally, moves all extremities and no focal motor deficits Speech: speech normal Psych affect normal Psych Narrative: Pleasant and appropriately interactive Weight / BMI Weight Weight: 47.3 kg Body Mass Index (BMI) 16.8 ABG / Lab / Microbiology Data Result Diagrams: 03/16/22 07:10 03/16/22 07:10 Laboratory: Laboratory Results - last 24 hr 03/15/22 22:40: WBC 8.8, RBC 4.00 L, Hgb 11.6 L, Hct 35.8 L, MCV 89.5, MCH 29.0, MCHC 32.4, RDW Std Deviation 49.7 H, RDW Coeff of Sherri 15.1 H, Plt Count 246, MPV 9.3, Immature Gran % (Auto) 1.100 H, Neut % (Auto) 70.3 H, Lymph % (Auto) 16.4 L , [place] % (Auto) 7.9, Eos % (Auto) 3.6, Baso % (Auto) 0.7, Absolute Neuts (auto) 6.2, Absolute Lymphs (auto) 1.44, Nucleated RBC % 0 03/15/22 22:40: Sodium 136, Potassium 3.9, Chloride 99, Carbon Dioxide 33.0 H, Anion Gap 4 L, BUN 10, Creatinine 0.70, Estim Creat Clear Calc 87.08, Est GFR (MDRD) Af Amer 148, Est GFR (MDRD) Non-Af 123, BUN/Creatinine Ratio 14.2, Glucose 104, Calcium 8.9 03/16/22 00:40: COVID-19 ([facility]) Not Detected 03/16/22 00:41: Procalcitonin 0.08 03/16/22 07:10: WBC 7.1, RBC 3.75 L, Hgb 10.9 L, Hct 33.7 L, MCV 89.9, MCH 29.1, MCHC 32.3, RDW Std Deviation 48.8 H, RDW Coeff of Sherri 14.8 H, Plt Count 223, MPV 8.7, Immature Gran % (Auto) 0.400, Neut % (Auto) 94.0 H, Lymph % (Auto) 4.9 L, [place] % (Auto) 0.6, Eos % (Auto) 0.0, Baso % (Auto) 0.1, Absolute Neuts (auto) 6 .7, Absolute Lymphs (auto) 0.35 L, Nucleated RBC % 0, Differential Comment SC ANNED 03/16/22 07:10: Sodium 134 L, Potassium 4.4, Chloride 99, Carbon Dioxide 30.0, Anion Gap 5, BUN 12, Creatinine 0.60 L, Estim Creat Clear Calc 89.78, Est GFR (MDRD) Af Amer 177, Est GFR (MDRD) Non-Af 146, BUN/Creatinine Ratio 19.9, Glucose 121 H, Calcium 8.6, Total Bilirubin 0.40, AST 12 L, ALT 15 L, Alkaline Phosphatase 58, Total Protein 6.7, Albumin 3.1 L, Globulin 3.6, Albumin/Globulin Ratio 0.9 Microbiology: Microbiology 03/16/22 07:45 Mucosa - Nasopharyngeal Respiratory Panel (PCR) - Final 03/16/22 04:21 Urine, Random Legionella Antigen - Final 03/16/22 04:21 Urine, Random Streptococcus pneumoniae Antigen (M - Final 03/15/22 22:40 Nasal Secretion SARS-CoV-2 & FLU Antigen (Rapid) - Final Radiography Diagnostic Testing: Radiology Impression Chest X-Ray 03/15/22 23:20 IMPRESSION: COPD. Mild bilateral interstitial infiltrates. Ileus. Possible left diaphragmatic hernia. Electronically Signed: Gerhard Joyce MD at 23:35 EST Reading Location ID and State: [address] [place] [address] , Service support , Meaningful Use Info Meaningful Use Diagnoses (Choose all that apply): None applicable Discharge Plan Admission Admit Date/Time: 03/16/22 00:15 Primary Reason for Your Visit: [place]/[place] Attending Provider: Iesha Holley Primary Care Provider: Keatn Peralta Consulting Providers: Kandis Roberto Discharge Orders/Prescriptions Prescriptions: New prednisone 10 mg tablet 10 mg PO DAILY Qty: 40 0RF Rx Instructions: 40 mg x 4 days, 30 mg x 4 days, 20 mg x 4 days, 10 mg x 4 days Roane Nasal 0.65 % aerosol,spray 2 spray intranasal Q2H PRN (Reason: dry nasal passages) Qty: 104 0RF fluticasone propionate [24 Hour Allergy Relief] 50 mcg/actuation spray,suspension 1 spray intranasal BID Qty: 16 0RF Rx Instructions: administer into each nostril Mucinex 1,200 mg tablet extended release 12hr 1,200 mg PO BID Qty: 20 0RF Continued pravastatin 10 MG tablet 20 mg PO QHS Label Comments: for cholesterol aspirin 81 MG tablet,chewable 81 mg PO DAILY@0800 albuterol sulfate 2.5 mg /3 mL (0.083 %) solution for nebulization 2.5 mg INHALATION Q4H PRN (Reason: shortness of breath or wheezing) Qty: 30 1RF albuterol sulfate 1 INHALER inhaler 2 puff INHALATION Q4H PRN PRN (Reason: Shortness Of Breath) Qty: 1 2RF budesonide [Pulmicort] 0.5 mg/2 mL suspension for nebulization 0.5 mg INHALATION Q12H Qty: 60 0RF lisinopril 20 MG tablet 20 mg PO DAILY Combivent Respimat 20-100 mcg/actuation mist 1 puff INHALATION 4X/DAY Referrals / Follow Up: Lee Higuera MD [Med Staff - Active Staff] - Within 1 Month Ketan Peralta MD [Primary Care Provider] - Within 2 Weeks Disposition Disposition (needs filled in before D/C Order can be placed): Home, Self Care Charges/Coding Visit Charges Inpatient E&M: 13146 Disch Hosp
--- NOTE | 2022-03-16 14:14 | CASEMGMT ---
Patient had discharge order in. RN CM in to see patient, patient denies needs at discharge. Patient state he has portable oxygen with him. Patient had no further questions or concerns.
[2022-03-16] MEDS: 0.9% Saline Lock 10 ML Syringe IV (14:28)
== END 2022-03-16 15:42 | disposition home or self-care (01) | DRG 191 ==
LOC: ED 03-16 00:05 → PCU 03-16 00:22
PROVIDERS: Admitting Provider Family Medicine; Emergency Provider Emergency Medicine; PCP Family Medicine; Visit Provider Internal Medicine
DX: J44.1 Chronic obstructive pulmonary disease with (acute) exacerbation (principal); J96.12 Chronic respiratory failure with hypercapnia; J96.11 Chronic respiratory failure with hypoxia; Z68.1 Body mass index [BMI] 19.9 or less, adult; Z99.81 Dependence on supplemental oxygen; E78.5 Hyperlipidemia, unspecified; I10 Essential (primary) hypertension; D64.9 Anemia, unspecified; Z23 Encounter for immunization; Z20.822 Contact with and (suspected) exposure to COVID-19; Z66 Do not resuscitate; Z87.891 Personal history of nicotine dependence
CPT/HCPCS: 36415; 71045; 80048; 80053; 84145; 85025; 87070; 87205; 87428; 87449; 87633; 87635; 93005; 94640; 99251; 99285; G0008; J7030; 90686; A4216; G0463; U0003; U0005